=== PATIENT | female | born 1945 | race Caucasian/White ===

== ENCOUNTER 2017-04-13 12:35 | Outpatient (CLI) | payer MEDICARE ==
--- NOTE | 2017-04-14 11:31 | Mammography Report ---
DIGITAL SCREENING MAMMOGRAPHY: 04/13/2017 COMPARISON: 09/07/2013, 10/06/2009, and 02/08/2008. TECHNIQUE: Bilateral digital CC and MLO projections. FINDINGS: There is scattered fibroglandular density. In the posterior right breast at approximately the 9 o'clock position, there is a faint nodular density not seen on preceding studies, perhaps due to lack of inclusion of this area. Otherwise, no dominant mass, architectural distortion, skin thickening, suspicious microcalcifications, or interval change. IMPRESSION: NEGATIVE LEFT BREAST. NEEDS ADDITIONAL EVALUATION RIGHT BREAST BY SPOT COMPRESSION VIEWS AND POSSIBLE ULTRASOUND. BIRADS CATEGORY 0. STANDARD QUALIFYING STATEMENTS 1. This examination was reviewed with the aid of Computer-Aided Detection (CAD). 2. A negative or benign imaging report should not delay biopsy if clinically suspicious findings are present. Consider surgical consultation if warranted. More than 5% of cancers are not identified by imaging. 3. Dense breasts may obscure an underlying neoplasm. JOB #: [id number] EXT JOB #: [id number] DELMI
== END 2017-04-13 12:36 | disposition home or self-care (01) ==
LOC: DI 12:35
PROVIDERS: ATTEND Family Medicine
DX: Z12.31 Encounter for screening mammogram for malignant neoplasm of breast (principal); R92.8 Other abnormal and inconclusive findings on diagnostic imaging of breast
CPT/HCPCS: 77067

== ENCOUNTER 2017-04-13 12:37 | Outpatient (CLI) | payer MEDICARE ==
--- NOTE | 2017-04-14 10:59 | Ultrasound Report ---
THYROID ULTRASOUND: 04/13/2017 HISTORY: Followup thyroid nodules. COMPARISON: 08/23/2013 TECHNIQUE: Real-time scanning by the production control analyst with saved static images reviewed. FINDINGS: Right lobe: 9.1 x 4.2 x 6.3 cm, volume 128 mL. A large heterogeneous appearing nodule replaces the entire right lobe measuring approximately 8.1 x 3.7 x 5.4 cm. By history, this nodule has been biopsied with benign results. Left lobe: 6.4 x 2.5 x 2.4 cm, volume 20 mL. Several nodules are seen in the left lobe: 1. Superior complex 0.9 cm in diameter. 2. Mid portion complex 1.6 x 0.8 x 1.2 cm. 3. Inferior complex 1.6 x 1.9 x 1.5 cm. Thyroid isthmus: 3 mm. IMPRESSION: ENLARGED MULTINODULAR THYROID GLAND CONSISTENT WITH GOITER, SIMILAR TO 08/23/2013. JOB #: [id number] [facility] JOB #: [id number] [facility]
--- NOTE | 2017-04-14 11:49 | DEXA Report ---
DEXA SCAN: 04/13/2017 CLINICAL HISTORY: Postmenopausal, asymptomatic. TECHNIQUE: Dual energy x-ray absorptiometry (DXA) was performed on a [employer] system. Regions measured are the AP spine, femoral neck, and, if needed, forearm. COMPARISON: None. In accordance with the International Society for Clinical Densitometry (ISCD) guidelines, data from previous exams may be reanalyzed using current recommendations and techniques. This is done to allow a more accurate basis for comparison with the current study. FINDINGS The data for the lumbar spine is as follows: REGION BMD (g/cm/cm) T-SCORE Z-SCORE L1 0.943 -1.6 -0.2 L2 1.099 -0.8 0.5 L3 1.070 -1.1 0.3 L4 1.200 0.0 1.4 TOTAL 1.080 -0.8 0.5 NOTE: All evaluable vertebrae are used for classification. The data for the hip is as follows: REGION BMD (g/cm/cm) T-SCORE Z-SCORE Neck 0.773 -1.9 -0.4 TOTAL 0.800 -1.6 -0.4 NOTE: The femoral neck or total proximal femur, whichever is lowest, is used for classification. IMPRESSION: BONE MINERAL DENSITY IN THE LEFT HIP IS CONSISTENT WITH OSTEOPENIA BASED ON WORLD HEALTH ORGANIZATION CLASSIFICATION. FRACTURE RISK IS INCREASED. RECOMMENDATION: Patients with diagnosis of osteoporosis or osteopenia should have regular bone mineral density assessment. For those eligible for Medicare, routine testing is allowed once every 2 years. Testing frequency can be increased for patients who have rapidly progressing disease or for those who are receiving medical therapy to restore bone mass. COMMENT: World Health Organization (WHO) definitions for osteoporosis and osteopenia: NORMAL BMD: T-score at -1.0 or higher, fracture risk is low. OSTEOPENIA BMD: T-score between -1.0 and -2.5, fracture risk is increased. OSTEOPOROSIS BMD: T-score at -2.5 or lower, fracture risk high. National Osteoporosis Foundation recommends: 1. Obtain adequate dietary calcium (at least 1200 mg per day) and vitamin D (400 -800 international units per day). 2. Participate, as appropriate, in regular weightbearing and muscle- strengthening exercise. 3. Avoid tobacco use and reduce alcohol and caffeine intake. 4. For more detailed information see the website at www.NOF.org. MTDD
== END 2017-04-13 12:38 | disposition home or self-care (01) ==
LOC: DI 12:37
PROVIDERS: ATTEND Family Medicine
DX: E04.2 Nontoxic multinodular goiter (principal); M85.88 Other specified disorders of bone density and structure, other site
CPT/HCPCS: 76536; 77080

== ENCOUNTER 2017-05-24 13:34 | Outpatient (CLI) | payer MEDICARE, OTHER ==
--- NOTE | 2017-05-24 19:16 | Ultrasound Report ---
ULTRASOUND OF THE RIGHT BREAST: 05/24/2017 CLINICAL INDICATION: Persistent 5 mm circumscribed nodule on mammogram. TECHNIQUE: Real-time scanning was performed with district sales representative static images obtained. Ultrasound of the right breast was performed. At the 9 o'clock position, there is a 4 x 3 x 3 mm int ramammary lymph node, accounting for the mammographic abnormality. No sonographically suspicious fin dings are appreciated. IMPRESSION: SMALL INTRAMAMMARY LYMPH NODE ACCOUNTING FOR THE MAMMOGRAPHIC ABNORMALITY. RECOMMENDATION: ROUTINE ANNUAL SCREENING UNLESS OTHERWISE CLINICALLY INDICATED. BIRADS CATEGORY: 2, BENIGN FINDINGS. JOB #: [id number] EXT JOB #:[id number]
--- NOTE | 2017-05-24 19:23 | Mammography Report ---
DIGITAL DIAGNOSTIC RIGHT MAMMOGRAM: 05/24/2017 CLINICAL INDICATION: Possible nodule lateral right breast. TECHNIQUE: Right true lateral and spot compression views. COMPARISON: 03/2017, 08/2013, 09/2009, 01/2008. The right breast again demonstrates scattered fibroglandular densities. The nodule in the right oute r breast, 9 o'clock position, persists on spot compression, and demonstrates a fatty hilum best seen on the CC spot compression view, compatible with an intramammary lymph node. No associated calcifica tions are seen. Please also refer to right breast ultrasound of the same day. IMPRESSION: BENIGN FINDINGS. RECOMMENDATION: ROUTINE ANNUAL SCREENING UNLESS OTHERWISE CLINICALLY INDICATED. BIRADS CATEGORY: 2, BENIGN FINDINGS. STANDARD QUALIFYING STATEMENTS 1. This examination was reviewed with the aid of Computed-Aided Detection (CAD). 2. A negative or benign imaging report should not delay biopsy if clinically suspicious findings are present. Consider surgical consultation if warranted. More than 5% of cancers are not identified b y imaging. 3. Dense breasts may obscure an underlying neoplasm. JOB #: [id number] EXT JOB #:[id number]
== END 2017-05-24 13:35 | disposition home or self-care (01) ==
LOC: DI 13:34
PROVIDERS: ATTEND Family Medicine
DX: N63.11 Unspecified lump in the right breast, upper outer quadrant (principal); N63.13 Unspecified lump in the right breast, lower outer quadrant
CPT/HCPCS: 76642; G0206

== ENCOUNTER 2019-01-01 11:07 | Emergency (ER) | payer MEDICARE, OTHER ==
[2019-01-01 11:42] LABS: BASOPHILS # (AUTO) 0.1 10^3/uL (0.0-0.1); BASOPHILS % (AUTO) 1.1 %; EOSINOPHILS # (AUTO) 0.1 10^3/uL (0.0-0.7); EOSINOPHILS % (AUTO) 2.3 %; HGB - HEMOGLOBIN 14.6 g/dL (12.0-16.0); LYMPHOCYTES # (AUTO) 2.7 10^3/uL (1.5-3.5); LYMPHOCYTES % (AUTO) 46.3 %; MEAN CORPUSCULAR HEMOGLOBIN 30.5 pg (27.0-31.0); MEAN CORPUSCULAR HGB CONC 33.5 g/dL (32.0-36.0); MEAN CORPUSCULAR VOLUME 90.9 fL (81.0-99.0); MEAN PLATELET VOLUME 9.6 fL (7.9-10.8); MONOCYTES # (AUTO) 0.4 10^3/uL (0.0-1.0); MONOCYTES % (AUTO) 6.1 %; NEUTROPHILS # (AUTO) 2.5 10^3/uL (1.5-6.6); NEUTROPHILS % (AUTO) 44.2 %; PLT - PLATELET COUNT 248 10^3/uL (130-450); RED BLOOD COUNT 4.81 10^6/uL (4.20-5.40); RED CELL DISTRIBUTION WIDTH 12.5 % (12.0-15.0); WHITE BLOOD COUNT 5.8 x10^3/uL (4.8-10.8)
[2019-01-01 11:53] LABS: ALBUMIN 3.9 g/dL (3.2-5.5); ALBUMIN/GLOBULIN RATIO 1.1 (1.0-2.2); CREATININE 0.8 mg/dL (0.4-1.0); TOTAL PROTEIN 7.5 g/dL (6.7-8.2)
[2019-01-01] MEDS ORDERED: SODIUM CHLORIDE 0.9% 1,000 ML IV ONE (12:19)
--- NOTE | 2019-01-01 12:22 | ED Physician Documentation ---
History of Present Illness - Stated complaint Stated Complaint: ELEVATED HEART RATE/HBP - Chief complaint Chief Complaint: Cardiac - History obtained from History obtained from: Patient - History of Present Illness Timing: How many days ago (4) - Additonal information Additional information: 73-year-old female who is under a lot of stress at home with the recent of a daughter and diagnosis of cancer in her has developed a sensation of a rapid heart rate she is been checking her blood pressure is been elevated her heart rate is been elevated into the upper 80s and 90s. She believes she is drinking adequate amount of fluids she denies any urinary symptoms she denies any other specific symptoms. She denies any chest pain or shortness of breath. Review of Systems Constitutional: denies: Fever Eyes: denies: Decreased vision Ears: denies: Ear pain Nose: denies: Rhinorrhea / runny nose, Congestion Throat: denies: Sore throat Cardiac: reports: Palpitations. denies: Chest pain / pressure, Pedal edema, Calf pain Respiratory: denies: Dyspnea, Cough GI: denies: Abdominal Pain, Nausea, Vomiting : denies: Dysuria, Frequency PD PAST MEDICAL HISTORY - Past Medical History Past Medical History: Yes Cardiovascular: None Respiratory: Asthma, Pneumonia Neuro: None Endocrine/Autoimmune: None GI: Other MATERIALS COORDINATOR: None : None HEENT: None, Other Psych: Anxiety Derm: None Other Past Medical History: tinnitis. IBS - Past Surgical History Past Surgical History: Yes HEENT: Cataracts - Present Medications Home Medications: Ambulatory Orders Medication Instructions Recorded Confirmed Lorazepam [Ativan] 1 mg PO Q6HR PRN #20 tablet 01/01/19 - Allergies Allergies/Adverse Reactions: Allergies Allergy/AdvReac Type Severity Reaction Status Date / Time No Known Drug Allergies Allergy Verified 01/01/19 11:24 - Social History Does the pt smoke?: No Smoking Status: Never smoker Does the pt drink ETOH?: No Does the pt have substance abuse?: No - Immunizations Immunizations are current?: Yes PD ED PE NORMAL - Vitals Vital signs reviewed: Yes (tachy and hypertensive ) - General General: Alert and oriented X 3, No acute distress, Well developed/nourished - HEENT HEENT: Atraumatic, PERRL, EOMI - Neck Neck: Supple, no meningeal sign, No bony TTP - Cardiac Cardiac: RRR, No murmur - Respiratory Respiratory: No respiratory distress, Clear bilaterally - Abdomen Abdomen: Soft, Non tender - Back Back: No CVA TTP, No spinal TTP - Derm Derm: Normal color, Warm and dry, No rash - Extremities Extremities: No deformity, No edema - Neuro Neuro: Alert and oriented X 3, pull 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, No motor deficit, No sensory deficit, Normal speech Eye Opening: Spontaneous Motor: Obeys Commands Verbal: Oriented GCS Score: 15 - Psych Psych: Normal mood, Normal affect Results - Vitals Vitals: Vital Signs - 24 hr 01/01/19 01/01/19 01/01/19 11:14 11:41 13:21 Temperature 36.9 C Heart Rate 108 H 78 Respiratory 11 L 13 Rate Blood Pressure 190/89 H 146/78 H Blood Pressure 156/72 H [Left] O2 Saturation 97 98 01/01/19 13:55 Temperature Heart Rate 75 Respiratory 16 Rate Blood Pressure 166/78 H Blood Pressure [Left] O2 Saturation 100 Oxygen O2 Source Room air - EKG (time done) 1117 Rate: Rate (enter#) (98) Rhythm: NSR [place]: LAD Compare to prior EKG: Old EKG unavailable Computer interpretation: Agree with computer - Labs Labs: Laboratory Tests 01/01/19 01/01/19 01/01/19 11:32 11:32 11:32 WBC 5.8 RBC 4.81 Hgb 14.6 Hct 43.7 MCV 90.9 MCH 30.5 MCHC 33.5 RDW 12.5 Plt Count 248 MPV 9.6 Neut # (Auto) 2.5 Lymph # (Auto) 2.7 [place] # (Auto) 0.4 Eos # (Auto) 0.1 Baso # (Auto) 0.1 Absolute Nucleated RBC 0.01 Nucleated RBC % 0.1 Sodium 140 Potassium 3.6 Chloride 104 Carbon Dioxide 24 Anion Gap 12.0 BUN 13 Creatinine 0.8 Estimated GFR (MDRD) 71 L Glucose 147 H Calcium 9.0 Total Bilirubin 1.0 AST 17 ALT 21 Alkaline Phosphatase 69 Troponin I < 0.04 Total Protein 7.5 Albumin 3.9 Globulin 3.6 Albumin/Globulin Ratio 1.1 Lipase 26 TSH Urine Color Urine Clarity Urine pH Ur Specific [place] Urine Protein Urine Glucose (UA) Urine Ketones Urine Occult Blood Urine Nitrite Urine Bilirubin Urine Urobilinogen Ur Leukocyte Esterase Ur Microscopic Review Urine Culture Comments 01/01/19 01/01/19 11:32 12:24 WBC RBC Hgb Hct MCV MCH MCHC RDW Plt Count MPV Neut # (Auto) Lymph # (Auto) [place] # (Auto) Eos # (Auto) Baso # (Auto) Absolute Nucleated RBC Nucleated RBC % Sodium Potassium Chloride Carbon Dioxide Anion Gap BUN Creatinine Estimated GFR (MDRD) Glucose Calcium Total Bilirubin AST ALT Alkaline Phosphatase Troponin I Total Protein Albumin Globulin Albumin/Globulin Ratio Lipase TSH 0.72 Urine Color YELLOW Urine Clarity CLEAR Urine pH 7.5 Ur Specific [place] 1.010 Urine Protein NEGATIVE Urine Glucose (UA) NEGATIVE Urine Ketones NEGATIVE Urine Occult Blood NEGATIVE Urine Nitrite NEGATIVE Urine Bilirubin NEGATIVE Urine Urobilinogen 0.2 (NORMAL) Ur Leukocyte Esterase NEGATIVE Ur Microscopic Review NOT INDICATED Urine Culture Comments NOT INDICATED Procedures - IVC sono (time) 1215 Bedside IVC sono: IVC measures (cm) (0.96), Dehydration (est 1 liter deficit) PD MEDICAL DECISION MAKING - ED course Complexity details: reviewed results, re-evaluated patient, considered differential, d/w patient, d/w family ED course: 73-year-old female with a sensation of rapid heart rate arrives to the emergency department with a heart rate of 108 after laying supine her heart rate drops into the upper 80s lower 90s and she is found to be mildly dehydrated on interrogation the inferior vena cava. She is administered a liter of saline and a urine specimen is obtained. Her TSH is checked and is normal as is the rest of her workup with the exception of the dehydration. Departure - Departure Disposition: 01 Home, Self Care Clinical Impression: Dehydration, Stress and adjustment reaction Condition: Stable Instructions: ED Stress React, ED Dehydration Follow-Up: Juan Mccann MD [Primary Care Provider] - Prescriptions: Lorazepam [Ativan] 1 mg PO Q6HR PRN #20 tablet PRN Reason: Anxiety Discharge Date/Time: 01/01/19 14:46
--- NOTE | 2019-01-01 12:40 | XRAY Report ---
Reason: chest pain Procedure Date: 01/01/2019 Accession Number: [id number] / [id number] Procedure: XR - Chest 1 View X-Ray CPT Code: 31005 FULL RESULT: EXAM: CHEST RADIOGRAPHY EXAM DATE: 01/01/2019 11:41 AM. CLINICAL HISTORY: Chest pain. COMPARISON: None. TECHNIQUE: 1 view. FINDINGS: Lungs/Pleura: No focal opacities evident. No pleural effusion. No pneumothorax. Mediastinum: Within exam limitations, the cardiomediastinal contour is normal. Other: None. IMPRESSION: Normal portable single view chest. RADIA
[2019-01-01 13:05] LABS: BILIRUBIN,URINE NEGATIVE (NEGATIVE); GLUCOSE, URINE (UA) NEGATIVE (NEGATIVE); KETONES,URINE (UA) NEGATIVE (NEGATIVE); LEUKOCYTE ESTERASE, URINE NEGATIVE (NEGATIVE); NITRITE,URINE NEGATIVE (NEGATIVE); OCCULT BLOOD,URINE NEGATIVE (NEGATIVE); PH,URINE 7.5 PH (5.0-7.5); PROTEIN,URINE NEGATIVE (NEGATIVE); UROBILINOGEN,URINE 0.2 (NORMAL) E.U./dL (NORMAL)
[2019-01-01 13:15] LABS: CLARITY,URINE CLEAR (CLEAR)
[2019-01-01 13:56] VITALS: BP 166/78
== END 2019-01-01 14:46 | disposition home or self-care (01) ==
LOC: ED 11:07
DX: E86.0 Dehydration (principal); F43.9 Reaction to severe stress, unspecified; F43.20 Adjustment disorder, unspecified
CPT/HCPCS: 71045; 80053; 81001; 81003; 83690; 84443; 84484; 85025; 87086; 93005; 96360; 99283; 99284

== ENCOUNTER 2019-01-26 11:11 | Outpatient (CLI) | payer MEDICARE, OTHER ==
--- NOTE | 2019-01-26 14:31 | Mammography Report ---
Reason: SCREENING MAMMO Procedure Date: 01/26/2019 Accession Number: [id number] / [id number] Procedure: PARAG - Screening Mammo w/Arnaldo CPT Code: FULL RESULT: EXAM: Screening Mammo w/Arnaldo DATE: 01/26/2019 11:44 AM CLINICAL HISTORY: Routine screening TECHNIQUE: (B) - Bilateral CC and MLO views were obtained. COMPARISON: 1031 and 17, 04/13/2017, 09/07/2013, 10/06/2009 and 02/08/2008 PARENCHYMAL PATTERN: (A) - The breasts demonstrate scattered fibroglandular densities bilaterally. FINDINGS: No significant interval change. Right breast lymph node as before. There are no suspicious masses, calcifications, or areas of distortion. IMPRESSION: Negative examination. BI-RADS category 1. RECOMMENDATION: (ANNUAL) - Recommend routine annual screening mammography. BI-RADS CATEGORY: (1) - Negative. STANDARD QUALIFYING STATEMENTS: 1. This examination was not reviewed with the aid of Computer-Aided Detection (CAD). 2. A negative or benign imaging report should not preclude biopsy if clinically suspicious findings are present. 3. Dense breasts may obscure an underlying neoplasm. 4. This examination was reviewed with the aid of 3D breast imaging (tomosynthesis).
== END 2019-01-26 11:12 | disposition home or self-care (01) ==
LOC: DI 11:11
PROVIDERS: ATTEND Family Medicine
DX: Z12.31 Encounter for screening mammogram for malignant neoplasm of breast (principal)
CPT/HCPCS: 77063; 77067

== ENCOUNTER 2019-03-06 01:22 | Outpatient (CLI) | payer MEDICARE, OTHER | END 2019-03-06 01:23 | disposition critical access hospital (66) | LOC: EMS 01:22 | PROVIDERS: ATTEND Surgery | DX: R09.89 Other specified symptoms and signs involving the circulatory and respiratory systems (principal) | CPT/HCPCS: A0425; A0427 ==

== ENCOUNTER 2019-03-06 01:33 | Emergency (ER) | payer MEDICARE, OTHER ==
[2019-03-06 01:58] LABS: BASOPHILS # (AUTO) 0.1 10^3/uL (0.0-0.1); BASOPHILS % (AUTO) 0.8 %; EOSINOPHILS # (AUTO) 0.2 10^3/uL (0.0-0.7); EOSINOPHILS % (AUTO) 3.2 %; LYMPHOCYTES % (AUTO) 52.9 %; MEAN CORPUSCULAR HEMOGLOBIN 30.8 pg (27.0-31.0); MEAN CORPUSCULAR HGB CONC 32.7 g/dL (32.0-36.0); MEAN CORPUSCULAR VOLUME 94.3 fL (81.0-99.0); MEAN PLATELET VOLUME 11.8 fL (7.9-10.8); MONOCYTES # (AUTO) 0.6 10^3/uL (0.0-1.0); MONOCYTES % (AUTO) 7.3 %; NEUTROPHILS # (AUTO) 2.7 10^3/uL (1.5-6.6); NEUTROPHILS % (AUTO) 35.4 %; PLT - PLATELET COUNT 249 10^3/uL (130-450); RED BLOOD COUNT 4.54 10^6/uL (4.20-5.40); RED CELL DISTRIBUTION WIDTH 12.2 % (12.0-15.0); WHITE BLOOD COUNT 7.5 x10^3/uL (4.8-10.8)
[2019-03-06] MEDS ORDERED: diltiaZEM INJ 5 MG/ML VIAL IVP STA (02:07)
[2019-03-06 02:11] LABS: ALBUMIN 3.8 g/dL (3.2-5.5); ALBUMIN/GLOBULIN RATIO 1.2 (1.0-2.2); BILIRUBIN,TOTAL 0.5 mg/dL (0.2-1.0); CALCIUM 9.6 mg/dL (8.5-10.3); CREATININE 0.9 mg/dL (0.4-1.0); TOTAL PROTEIN 6.9 g/dL (6.7-8.2)
[2019-03-06 03:06] LABS: BILIRUBIN,URINE NEGATIVE (NEGATIVE); GLUCOSE, URINE (UA) NEGATIVE (NEGATIVE); KETONES,URINE (UA) NEGATIVE (NEGATIVE); LEUKOCYTE ESTERASE, URINE NEGATIVE (NEGATIVE); NITRITE,URINE NEGATIVE (NEGATIVE); OCCULT BLOOD,URINE NEGATIVE (NEGATIVE); PH,URINE 6.5 PH (5.0-7.5); PROTEIN,URINE NEGATIVE (NEGATIVE); UROBILINOGEN,URINE 0.2 (NORMAL) E.U./dL (NORMAL)
[2019-03-06 03:08] LABS: CLARITY,URINE CLEAR (CLEAR)
--- NOTE | 2019-03-06 03:15 | ED Physician Documentation ---
History of Present Illness - Stated complaint Stated Complaint: RAPID HR - Chief complaint Chief Complaint: Cardiac - History obtained from History obtained from: Patient - History of Present Illness Timing: Prior to arrival - Additonal information Additional information: This is a 73-year-old woman who presents with complaints that she woke up approximately an hour and a half prior to presentation with just a weird sensation in her chest. She is a little bit nauseous yesterday but went to bed feeling okay. She said her heart rate was very rapid tonight and they called the ambulance. She has not similar episode happened back in December but she does not remember being told that she had atrial fibrillation. She did not feel lightheaded tonight. No vomiting. No chest pain. Denies peripheral edema or dysuria. She does have a history of some high blood pressure but did not want to take medications so has been controlling it through lifestyle. The only thing unusual about last night was she took a melatonin 5 mg with valerian and she typically only takes melatonin. Review of Systems Constitutional: denies: Fever Eyes: reports: Other (IOLs) Ears: denies: Ear pain Nose: denies: Congestion Throat: denies: Sore throat Cardiac: reports: Palpitations. denies: Chest pain / pressure, Pedal edema Respiratory: denies: Dyspnea, Cough GI: reports: Nausea. denies: Vomiting : denies: Dysuria Skin: denies: Rash Neurologic: denies: Generalized weakness, Near syncope, Syncope Endocrine: reports: Other (Patient has a thyroid goiter but her TSH was just screened in December and was normal) Immunocompromised: denies: Immunocompromised PD PAST MEDICAL HISTORY - Past Medical History Cardiovascular: None Respiratory: Asthma, Pneumonia Neuro: None Endocrine/Autoimmune: None GI: Other RECORDS AND TAPE RECORDINGS ENGINEER: None : None HEENT: None, Other Psych: Anxiety Derm: None - Past Surgical History Past Surgical History: Yes HEENT: Cataracts - Present Medications Home Medications: Ambulatory Orders Medication Instructions Recorded Confirmed No Known Home Medications 03/06/19 03/06/19 - Allergies Allergies/Adverse Reactions: Allergies Allergy/AdvReac Type Severity Reaction Status Date / Time amlodipine [From [facility]] Allergy Unknown Verified 03/06/19 01:40 - Social History Does the pt smoke?: No Smoking Status: Never smoker Does the pt drink ETOH?: No Does the pt have substance abuse?: No - Immunizations Immunizations are current?: Yes PD ED PE NORMAL - Vitals Vital signs reviewed: Yes - General General: Alert and oriented X 3, No acute distress, Well developed/nourished - HEENT HEENT: Atraumatic, PERRL, Moist mucous membranes - Neck Neck: Supple, no meningeal sign, No adenopathy, Thyroid normal - Cardiac Cardiac: No murmur, Strong equal pulses, Other (Tachycardic) - Respiratory Respiratory: No respiratory distress, Clear bilaterally - Abdomen Abdomen: Normal bowel sounds, Soft, Non tender - Derm Derm: Normal color, Warm and dry, No rash - Extremities Extremities: No deformity, No edema - Neuro Neuro: Alert and oriented X 3, 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1 Absolute Nucleated RBC 0.00 Nucleated RBC % 0.0 Sodium 144 Potassium 3.6 Chloride 105 Carbon Dioxide 25 Anion Gap 14.0 H BUN 19 Creatinine 0.9 Estimated GFR (MDRD) 62 L Glucose 127 H Calcium 9.6 Total Bilirubin 0.5 AST 16 ALT 18 Alkaline Phosphatase 66 Troponin I High Sens 10.7 Total Protein 6.9 Albumin 3.8 Globulin 3.1 Albumin/Globulin Ratio 1.2 Lipase 33 Urine Color Urine Clarity Urine pH Ur Specific [place] Urine Protein Urine Glucose (UA) Urine Ketones Urine Occult Blood Urine Nitrite Urine Bilirubin Urine Urobilinogen Ur Leukocyte Esterase Ur Microscopic Review Urine Culture Comments 03/06/19 03:02 WBC RBC Hgb Hct MCV MCH MCHC RDW Plt Count MPV Neut # (Auto) Lymph # (Auto) [place] # (Auto) Eos # (Auto) Baso # (Auto) Absolute Nucleated RBC Nucleated RBC % Sodium Potassium Chloride Carbon Dioxide Anion Gap BUN Creatinine Estimated GFR (MDRD) Glucose Calcium Total Bilirubin AST ALT Alkaline Phosphatase Troponin I High Sens Total Protein Albumin Globulin Albumin/Globulin Ratio Lipase Urine Color YELLOW Urine Clarity CLEAR Urine pH 6.5 Ur Specific [place] <=1.005 Urine Protein NEGATIVE Urine Glucose (UA) NEGATIVE Urine Ketones NEGATIVE Urine Occult Blood NEGATIVE Urine Nitrite NEGATIVE Urine Bilirubin NEGATIVE Urine Urobilinogen 0.2 (NORMAL) Ur Leukocyte Esterase NEGATIVE Ur Microscopic Review NOT INDICATED Urine Culture Comments NOT INDICATED PD MEDICAL DECISION MAKING - ED course ED course: Patient had been given 2 doses of adenosine and 10 mg of Cardizem prior to arrival. When she arrived here her heart rate was in the low 100s and she was in A. fib. Labs were drawn and showed normal CBC and electrolytes. Her troponin was negative. She was given 20 mg of Cardizem and subsequently converted to a sinus rhythm with a rate in the 80s. She was feeling better. Review of her records shows that she was in here in December with feelings of palpitations but at the time she was here she was in a sinus rhythm with rate in the 90s. She is encouraged to follow-up with her primary care provider about whether or not she needs evaluation by cardiology. Departure - Departure Disposition: 01 Home, Self Care Clinical Impression: Atrial fibrillation Qualifiers: Atrial fibrillation type: unspecified Qualified Code(s): I48.91 - Unspecified atrial fibrillation Condition: Good Instructions: ED Afib Follow-Up: Juan Mccann MD [Provider Admit Priv/Credential] - Comments: Make an appointment to follow-up with Dr. Watson if the A. fib returns and your heart rate is fast especially if you are symptomatic with shortness of breath, chest pain, dizziness week or as soon as possible..
[2019-03-06 03:25] VITALS: BP 119/63
--- NOTE | 2019-03-06 03:44 | ED Physician Documentation ---
ED Addendum - Addendum Addendum: 03/06/19 03:43 EKG: A Fib with rate of 128. Narrow qrs, No acute ST changes.
== END 2019-03-06 03:40 | disposition home or self-care (01) ==
LOC: EDUNIT# → ED 01:33
DX: I48.91 Unspecified atrial fibrillation (principal)
CPT/HCPCS: 36415; 80053; 81001; 81003; 83690; 84484; 85025; 87086; 93005; 96374; 99284

== ENCOUNTER 2019-04-09 10:19 | Outpatient (CLI) | payer MEDICARE, OTHER | END 2019-04-09 10:20 | disposition home or self-care (01) | LOC: DI 10:19 | PROVIDERS: ATTEND Family Medicine | DX: I48.0 Paroxysmal atrial fibrillation (principal) | CPT/HCPCS: 93306 ==

== ENCOUNTER 2019-04-24 13:02 | Outpatient (CLI) | payer MEDICARE, OTHER ==
--- NOTE | 2019-04-26 07:56 | DEXA Report ---
Reason: ASYMPTOMATIC POSTMENOPAUSAL, OSTEOPENIA Procedure Date: 04/24/2019 Accession Number: [id number] / [id number] Procedure: DEX - Dexa Spine and/or Hip CPT Code: FULL RESULT: EXAM: Dexa Spine and/or Hip DATE: 04/24/2019 1:54 PM CLINICAL HISTORY: ASYMPTOMATIC POSTMENOPAUSAL, OSTEOPENIA TECHNIQUE: Dual energy x-ray absorptiometry (DXA) was performed on a [employer] System. Regions measured are the AP Spine, femoral neck, and if needed forearm. COMPARISON: 04/13/2017 In accordance with the International Society for Clinical Densitometry (ISCD) guidelines, data from previous exams may be reanalyzed using current recommendations and techniques. This is done to allow a more accurate basis for comparison with the current study. FINDINGS: The data for the lumbar spine is as follows: BMD (g/cm/cm) T-SCORE Z-SCORE REGION L1 0.968 -1.3 0.2 L2 1.056 -1.2 0.4 L3 1.142 -0.5 1.1 L4 1.085 -1.0 0.6 TOTAL 1.109 -0.8 0.8 NOTE: All evaluable vertebrae are used for classification The data for the hip is as follows: BMD (g/cm/cm) T-SCORE Z-SCORE REGION Neck 0.815 -1.6 0.1 TOTAL 0.832 -1.4 0.1 NOTE: The femoral neck or total proximal femur, whichever is lowest, is used for classification. DXA RESULTS SUMMARY: Spine SCAN DATE [age]GE BMD CHANGE VS CHANGE VS PREVIOUS PREVIOUS % [birth year][age]24[birth year]2019 [age] 1.109 -0.025 -2.2 04/13/2017 [age] 1.134 * Denotes significant change at the 95% confidence level. Denotes dissimilar scan types or analysis methods. COMPARISON HIP DXA RESULTS SUMMARY: Hip SCAN DATE [age]GE BMD CHANGE VS CHANGE VS PREVIOUS PREVIOUS % [birth year]24[birth year]2019 [age] 0[age]832 0.032 5.0 04/13[birth year]2017 [age] 0.800 * Denotes significant change at the 95% confidence level. Denotes dissimilar scan types or analysis methods. IMPRESSION: THE WHO CLASSIFICATION BASED ON THE INTERNATIONAL REFERENCE STANDARD IS OSTEOPENIA. THE FRACTURE RISK IS INCREASED. RECOMMENDATION: Patients with diagnosis of osteoporosis or osteopenia should have regular bone mineral density assessment. For those eligible for Medicare, routine testing is allowed once every 2 years. Testing frequency can be increased for patients who have rapidly progressing disease or for those who are receiving medical therapy to restore bone mass. COMMENT: World Health Organization (WHO) definitions for osteoporosis and osteopenia: NORMAL BMD: T-score at -1.0 or higher, fracture risk is low OSTEOPENIA BMD: T-score between -1.0 and -2.5, fracture risk is increased. OSTEOPOROSIS BMD: T-score at -2.5 or lower, fracture risk is high. National Osteoporosis Foundation recommends: 1. Obtain adequate dietary calcium (at least 1200 mg per day) and vitamin D (400-800 international units per day). 2. Participate, as appropriate, in regular weightbearing and muscle-strengthening exercise. 3. Avoid tobacco use and reduce alcohol and caffeine intake. 4. For more detailed information see the website at www.NOF.org.
== END 2019-04-24 13:03 | disposition home or self-care (01) ==
LOC: DI 13:02
PROVIDERS: ATTEND Family Medicine
DX: M85.88 Other specified disorders of bone density and structure, other site (principal); Z78.0 Asymptomatic menopausal state
CPT/HCPCS: 77080

== ENCOUNTER 2019-12-24 01:57 | Emergency (ER) | payer MEDICARE, OTHER ==
--- NOTE | 2019-12-24 02:12 | ED Physician Documentation ---
History of Present Illness - Stated complaint Stated Complaint: VOMITING, CONSTIPATION - Chief complaint Chief Complaint: Cardiac - History obtained from History obtained from: Patient - History of Present Illness Timing: Enter time (00:30), Today Pain level max: 0 Pain level now: 0 Improved by: nothing Worsened by: no exacerbating factors - Additonal information Additional information: woke @ 12:30 AM with flutter in my chest. has had similar symptom before which correlates with PAF (and has also been T+R from this ED for same). denies chest pain or dyspnea. she tried techniques for conversion to NSR which she had been taught in previous visits without change in symptoms Review of Systems Constitutional: reports: Reviewed and negative Cardiac: reports: Palpitations. 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 : None HEENT: None, Other Psych: Anxiety Derm: None - Past Surgical History Past Surgical History: Yes HEENT: Cataracts - Present Medications Home Medications: Ambulatory Orders Medication Instructions Recorded Confirmed Aspirin 325 PO DAILY 12/24/19 Diltiazem HCl [Cardizem] 120 mg PO 12/24/19 Metoprolol Succinate 25 mg PO 12/24/19 - Allergies Allergies/Adverse Reactions: Allergies Allergy/AdvReac Type Severity Reaction Status Date / Time amlodipine [From [facility]] Allergy Unknown Verified 03/06/19 01:40 - Social History Does the pt smoke?: No Smoking Status: Never smoker Does the pt drink ETOH?: No Does the pt have substance abuse?: No - Immunizations Immunizations are current?: Yes PD ED PE NORMAL - Vitals Vital signs reviewed: Yes - General General: Alert and oriented X 3, No acute distress, Well developed/nourished - Neck Neck: Supple, no meningeal sign - Cardiac Cardiac: No murmur, No gallop, No rub - Respiratory Respiratory: No respiratory distress, Clear bilaterally - Abdomen Abdomen: Soft, Non tender - Extremities Extremities: No edema PD ED PE EXPANDED - Cardiac Cardiac: Tachy, Irregularly irregular Results - Vitals Vitals: Oxygen O2 Source Room air - EKG (time done) No standard instances Rate: Rate (enter#) (124), Tachy Rhythm: Atrial fibrillation [place]: LAD Intervals: Prolonged QT (borderline) QRS: Normal Ischemia: Normal ST segments - Labs Labs: Laboratory Tests 12/24/19 12/24/19 12/24/19 02:40 02:40 02:40 WBC 9.0 RBC 4.89 Hgb 15.0 Hct 46.4 MCV 94.9 MCH 30.7 MCHC 32.3 RDW 11.9 L Plt Count 260 MPV 11.2 H Neut # (Auto) 4.2 Lymph # (Auto) 3.8 H Rich # (Auto) 0.7 Eos # (Auto) 0.3 Baso # (Auto) 0.1 Absolute Nucleated RBC 0.00 Nucleated RBC % 0.0 PT 10.2 INR 0.9 APTT 31.2 Sodium 142 Potassium 3.7 Chloride 108 Carbon Dioxide 23 Anion Gap 11.0 BUN 17 Creatinine 0.8 Estimated GFR (MDRD) 70 L Glucose 127 H Calcium 9.3 Total Bilirubin 0.6 AST 16 ALT 16 Alkaline Phosphatase 89 Troponin I High Sens Total Protein 7.5 Albumin 4.1 Globulin 3.4 Albumin/Globulin Ratio 1.2 Lipase 30 12/24/19 02:40 WBC RBC Hgb Hct MCV MCH MCHC RDW Plt Count MPV Neut # (Auto) Lymph # (Auto) Rich # (Auto) Eos # (Auto) Baso # (Auto) Absolute Nucleated RBC Nucleated RBC % PT INR APTT Sodium Potassium Chloride Carbon Dioxide Anion Gap BUN Creatinine Estimated GFR (MDRD) Glucose Calcium Total Bilirubin AST ALT Alkaline Phosphatase Troponin I High Sens 9.9 Total Protein Albumin Globulin Albumin/Globulin Ratio Lipase PD MEDICAL DECISION MAKING - ED course Complexity details: reviewed old records, reviewed results, re-evaluated patient, considered differential, d/w patient ED course: improved rate with IV cardizem 15mg and rhythm was NSR with frequent, albeit, brief, paroxysms of BLAKE. she had borderline elevated blood pressure, allowing for another dose of IV cardizem, thus 10 mg IV cardizem administered and the paroxysms of atrial fibrillation stopped and she maintained a normal sinus rhythm and was asymptomatic. Departure - Departure Disposition: 01 Home, Self Care Clinical Impression: Rapid atrial fibrillation Condition: Good Instructions: ED Afib Discharge Date/Time: 12/24/19 06:05
[2019-12-24] MEDS ORDERED: DILTIAZEM 50 MG/10 ML VIAL IVP STA ×2 (02:19→04:03)
[2019-12-24 02:47] LABS: BASOPHILS # (AUTO) 0.1 10^3/uL (0.0-0.1); BASOPHILS % (AUTO) 1.1 %; EOSINOPHILS # (AUTO) 0.3 10^3/uL (0.0-0.7); EOSINOPHILS % (AUTO) 2.8 %; LYMPHOCYTES # (AUTO) 3.8 10^3/uL (1.5-3.5); LYMPHOCYTES % (AUTO) 41.7 %; MEAN CORPUSCULAR HEMOGLOBIN 30.7 pg (27.0-31.0); MEAN CORPUSCULAR HGB CONC 32.3 g/dL (32.0-36.0); MEAN CORPUSCULAR VOLUME 94.9 fL (81.0-99.0); MEAN PLATELET VOLUME 11.2 fL (7.9-10.8); MONOCYTES # (AUTO) 0.7 10^3/uL (0.0-1.0); NEUTROPHILS # (AUTO) 4.2 10^3/uL (1.5-6.6); NEUTROPHILS % (AUTO) 46.2 %; PLT - PLATELET COUNT 260 10^3/uL (130-450); RED BLOOD COUNT 4.89 10^6/uL (4.20-5.40); RED CELL DISTRIBUTION WIDTH 11.9 % (12.0-15.0)
[2019-12-24 02:58] LABS: INR 0.9 (0.8-1.2); PT - PROTHROMBIN TIME 10.2 secs (9.9-12.6)
[2019-12-24 03:03] LABS: ALBUMIN 4.1 g/dL (3.2-5.5); ALBUMIN/GLOBULIN RATIO 1.2 (1.0-2.2); BILIRUBIN,TOTAL 0.6 mg/dL (0.2-1.0); CALCIUM 9.3 mg/dL (8.5-10.3); CREATININE 0.8 mg/dL (0.4-1.0); TOTAL PROTEIN 7.5 g/dL (6.7-8.2)
[2019-12-24 03:05] LABS: PARTIAL THROMBOPLASTIN TIME 31.2 secs (24.9-33.3)
[2019-12-24 06:05] VITALS: BP 126/68
--- NOTE | 2019-12-24 09:41 | XRAY Report ---
Reason: palpitations Procedure Date: 12/24/2019 Accession Number: [id number] / [id number] Procedure: XR - Chest 1 View X-Ray CPT Code: 56253 Final Report FULL RESULT: PROCEDURE: Chest 1 View X-Ray INDICATIONS: palpitations TECHNIQUE: One view of the chest was acquired. COMPARISON: 08/03/2018 FINDINGS: Surgical changes and devices: None. Lungs and pleura: No pleural effusions or pneumothorax. Lungs are clear. Mediastinum: Moderate leftward deviation of the trachea at the level of the clavicular heads. No tracheal compression. This is fairly stable compared to the prior study. Aortic contour is normal. Heart size is normal. Bones and chest wall: No suspicious bony lesions. Overlying soft tissues appear unremarkable. IMPRESSION: 1. No acute cardiopulmonary disease. 2. There is chronic, fairly stable leftward tracheal deviation, most likely secondary to thyroid enlargement. If not previously evaluated, consider thyroid ultrasound. 3. Concordant with preliminary report. Reviewed by: Marissa Blanc MD on 12/24/2019 7:38 AM PDT Approved by: Marissa Blanc MD on 12/24/2019 7:38 AM PDT Station ID: [id number]
== END 2019-12-24 06:05 | disposition home or self-care (01) ==
LOC: EDUNIT# → ED 01:57
DX: I48.0 Paroxysmal atrial fibrillation (principal); I44.4 Left anterior fascicular block; Z79.82 Long term (current) use of aspirin
CPT/HCPCS: 36415; 71045; 80053; 83690; 84484; 85025; 85610; 85730; 93005; 96374; 99284

== ENCOUNTER 2020-07-28 06:27 | Emergency (ER) | payer MEDICARE, OTHER ==
[2020-07-28 06:53] LABS: BASOPHILS # (AUTO) 0.1 10^3/uL (0.0-0.1); EOSINOPHILS # (AUTO) 0.2 10^3/uL (0.0-0.7); EOSINOPHILS % (AUTO) 2.6 %; HGB - HEMOGLOBIN 15.8 g/dL (12.0-16.0); LYMPHOCYTES # (AUTO) 3.9 10^3/uL (1.5-3.5); LYMPHOCYTES % (AUTO) 50.3 %; MEAN CORPUSCULAR HEMOGLOBIN 30.3 pg (27.0-31.0); MEAN CORPUSCULAR HGB CONC 32.8 g/dL (32.0-36.0); MEAN CORPUSCULAR VOLUME 92.3 fL (81.0-99.0); MONOCYTES # (AUTO) 0.5 10^3/uL (0.0-1.0); MONOCYTES % (AUTO) 5.9 %; NEUTROPHILS # (AUTO) 3.1 10^3/uL (1.5-6.6); NEUTROPHILS % (AUTO) 40.1 %; PLT - PLATELET COUNT 299 10^3/uL (130-450); RED BLOOD COUNT 5.22 10^6/uL (4.20-5.40); RED CELL DISTRIBUTION WIDTH 11.9 % (12.0-15.0); WHITE BLOOD COUNT 7.7 x10^3/uL (4.8-10.8)
[2020-07-28] MEDS ORDERED: diltiaZEM INJ 5 MG/ML VIAL IVP STA (06:54)
--- NOTE | 2020-07-28 06:59 | ED Physician Documentation ---
History of Present Illness - Stated complaint Stated Complaint: HEART RACING - Chief complaint Chief Complaint: Cardiac - History obtained from History obtained from: Patient - Additonal information Additional information: Patient comes emergency department chief complaint of "my A. fib is acting up". Patient has a history of A. fib and states that she has gone in and out of it previously. She takes metoprolol and diltiazem at home for this. She states she woke up in the night and felt as though her heart was pounding. She was able to go back to sleep, but then woke up a couple of hours later, around 220 in the morning, and realized that her heart was racing and seemed irregular. At that point in time, patient took half tablet of her metoprolol and tried to rest. However, her heart never did go back to a normal rhythm, and patient states that she used a stethoscope to listen to it at home. She heard periods of racing and became concerned so decided to come in. Patient denies any s hortness of breath. No chest pain. No nausea or diaphoresis. No lightheadedness. No other complaints at this time. She sees Dr. Sousa for cardiology care. Review of Systems Ten Systems: 10 systems reviewed and negative Constitutional: reports: Reviewed and negative Eyes: reports: Reviewed and negative Ears: reports: Reviewed and negative Nose: reports: Reviewed and negative Throat: reports: Reviewed and negative Cardiac: reports: Palpitations. denies: Chest pain / pressure Respiratory: reports: Reviewed and negative. denies: Dyspnea GI: reports: Reviewed and negative : reports: Reviewed and negative Skin: reports: Reviewed and negative Musculoskeletal: reports: Reviewed and negative Neurologic: reports: Reviewed and negative Psychiatric: reports: Reviewed and negative Endocrine: reports: Reviewed and negative Immunocompromised: reports: Reviewed and negative PD PAST MEDICAL HISTORY - Past Medical History Cardiovascular: None Respiratory: Asthma, Pneumonia Neuro: None Endocrine/Autoimmune: None GI: Other SLUNK SKINNER: None : None HEENT: None, Other Psych: Anxiety Derm: None - Past Surgical History Past Surgical History: Yes HEENT: Cataracts - Present Medications Home Medications: Ambulatory Orders Medication Instructions Recorded Confirmed Aspirin 325 mg PO DAILY 12/24/19 Diltiazem HCl [Cardizem] 120 mg PO DAILY 12/24/19 07/28/20 Metoprolol Succinate 25 mg PO DAILY 12/24/19 07/28/20 - Allergies Allergies/Adverse Reactions: Allergies Allergy/AdvReac Type Severity Reaction Status Date / Time amlodipine [From [facility]] Allergy Unknown Verified 07/28/20 06:39 - Social History Does the pt smoke?: No Smoking Status: Never smoker Does the pt drink ETOH?: No Does the pt have substance abuse?: No - Immunizations Immunizations are current?: Yes PD ED PE NORMAL - Vitals Vital signs reviewed: Yes - General General: Alert and oriented X 3, No acute distress - HEENT HEENT: Atraumatic, PERRL, EOMI, Moist mucous membranes - Neck Neck: Supple, no meningeal sign - Cardiac Cardiac: No murmur, Strong equal pulses, Other (Irregular rhythm and rate no murmurs.) - Respiratory Respiratory: No respiratory distress, Clear bilaterally - Abdomen Abdomen: Soft, Non tender, Non distended - Derm Derm: Normal color, Warm and dry, No rash - Extremities Extremities: No deformity, No edema, No calf tenderness / cord - Neuro Neuro: Alert and oriented X 3 - Psych Psych: Normal mood, Normal affect Results - Vitals Vitals: Vital Signs - 24 hr 07/28/20 07/28/20 06:30 07:08 Temperature 36.5 C Heart Rate 94 72 Respiratory 18 14 Rate Blood Pressure 137/109 H 123/90 H O2 Saturation 98 95 Oxygen O2 Source Room air - Labs Labs: Laboratory Tests 07/28/20 07/28/20 07/28/20 06:45 06:45 06:45 WBC 7.7 RBC 5.22 Hgb 15.8 Hct 48.2 H MCV 92.3 MCH 30.3 MCHC 32.8 RDW 11.9 L Plt Count 299 MPV 11.0 H Neut # (Auto) 3.1 Lymph # (Auto) 3.9 H [place] # (Auto) 0.5 Eos # (Auto) 0.2 Baso # (Auto) 0.1 Absolute Nucleated RBC 0.00 Nucleated RBC % 0.0 Sodium 142 Potassium 4.0 Chloride 105 Carbon Dioxide 26 Anion Gap 11.0 BUN 15 Creatinine 0.7 Estimated GFR (MDRD) 82 L Glucose 147 H Calcium 9.5 Total Bilirubin 0.7 AST 14 ALT 19 Alkaline Phosphatase 82 Troponin I High Sens 13.0 Total Protein 7.8 Albumin 4.2 Globulin 3.6 Albumin/Globulin Ratio 1.2 Lipase 21 L PD MEDICAL DECISION MAKING - ED course Complexity details: reviewed old records, reviewed results, re-evaluated patient, considered differential, d/w patient ED course: Patient was evaluated in the emergency department upon arrival, and was initially put on the quality assurance monitor chassis. This did seem to show periods of normal sinus rhythm rapidly cycling with irregular, rapid heartbeats. All complexes were narrow. EKG was performed and was read by the computer as atrial fibrillation but did also seem to show periods of normal sinus rhythm briefly. The patient was worked up with a cardiac panel. Initially, I had ordered IV diltiazem for the patient, but her heart rate did seem to normalize, so she was given her normal oral diltiazem instead. The patient was signed out to Dr. Barr, pending remainder of work-up and final disposition.
[2020-07-28 07:00] LABS: ALBUMIN 4.2 g/dL (3.2-5.5); ALBUMIN/GLOBULIN RATIO 1.2 (1.0-2.2); BILIRUBIN,TOTAL 0.7 mg/dL (0.2-1.0); CALCIUM 9.5 mg/dL (8.5-10.3); CREATININE 0.7 mg/dL (0.4-1.0); TOTAL PROTEIN 7.8 g/dL (6.7-8.2)
[2020-07-28] MEDS ORDERED: diltiaZEM CD 120 MG CAPSULE PO STA (07:29)
--- NOTE | 2020-07-28 07:30 | ED Physician Documentation ---
ED Addendum - Addendum Addendum: 07/28/20 07:29 Patient endorsed to me by Dr. Ramos for further management. She has reverted to normal sinus rhythm with heart rate in the 70s at this time. No acute distress. 07/28/20 08:02 labwork, cxr nonfocal. repeat ekg nsr. patient asymptomatic at present. discussed return precautions. 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
--- NOTE | 2020-07-28 08:12 | XRAY Report ---
PROCEDURE: Chest 1 View X-Ray INDICATIONS: Chest pain TECHNIQUE: One view of the chest was acquired. COMPARISON: Prior single view chest 12/24/2019. FINDINGS: Surgical changes and devices: None. Lungs and pleura: No pleural effusions or pneumothorax. Lungs are clear. Mediastinum: Mediastinal contours appear normal. Heart size is normal. Bones and chest wall: No suspicious bony lesions. Overlying soft tissues appear unremarkable. IMPRESSION: Normal for age, source of current symptoms is not seen. Reviewed by: Bernardo Black MD on 07/28/2020 8:11 AM PST Approved by: Bernardo Black MD on 07/28/2020 8:11 AM PST Station ID: [id number]
[2020-07-28 08:17] VITALS: BP 140/69
== END 2020-07-28 08:28 | disposition home or self-care (01) ==
LOC: ED 06:27
DX: I48.91 Unspecified atrial fibrillation (principal)
CPT/HCPCS: 36415; 71045; 80053; 83690; 84484; 85025; 93005; 99284; A9270

== ENCOUNTER 2021-02-19 13:33 | Outpatient (CLI) | payer MEDICARE, OTHER ==
[2021-02-19 14:22] VITALS: BP 155/79
--- NOTE | 2021-02-19 14:22 | SLEEP CARE CONSULTATION ---
Information from patient questionnaire entered by Barbara Valdovinos. I have reviewed and concur with the information entered by Barbara Valdovinos. This document represents the service I personally performed and the decisions made by me, Vesta Bullock ARNP. History of Present Illness Service Date and Time: 02/19/2021 1333 Reason for Visit: New patient Chief Complaint: reports: Insomnia, Unrefreshed sleep, Snoring. denies: Observed pauses in breathing Date of Onset: yers Usual bedtime: 11:30 pm Time it takes to fall asleep: 10 minutes to 3-4 hours Snores at night: Yes Observed to quit breathing while asleep: No Sleeps alone due to snoring: Yes Number of times waking at night: 1-2 Reasons for waking at night: reports: Snoring, Bathroom, Other (unknown reason). denies: Choking, Gasping for air Toss, Turn, or Twitch while sleeping: No (but twitch before sleep) Recalls having dreams: Yes Usually gets out of bed at: 9:30 am Feels refreshed in the morning: No Morning headache: No Sleepy or fatigued during the day: Yes Ever fallen asleep while driving: No (no drowsy driving) Takes day naps: No Dreams during day naps: No Prior sleep studies: No Additional HPI information: I had the pleasure of seeing CEM SHARPE today regarding the possibility of her having a sleep disorder. Her current complaints are insomnia, snoring and unrefreshed sleep. She has snored most of her life. She broke her nose when [age] and has had a deviated septum that was repaired around . Her snoring improved but she still snores loudly enough for her to hear in the other room. He sleeps in other room due to her snoring. She can feel rested if gets 7- 8 hours solid but has a little bit of fatigue. She has nights that she cannot fall asleep. She has tried OTC tylenol or melatonin which helps minimally to get to sleep or stay asleep. She has bruxism and snoring for which her dentist had her wear an oral appliance. She is here to see what type of oral appliance she needs. She states sometimes night time dry mouth will wake her up but this does not happen very often. Her has mild sleep apnea. 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 Patient is and lives in [place]. Have you smoked in the past 12 months: No Alcohol use: No Caffeine use: No Family History Family history of sleep disordered breathing: Yes Family Hx Sleep Apnea: Other: Snoring (grandson) Allergies and Home Medications Home medication list reviewed: Yes (amlodipine) Allergy and home medication list: Metoprolol ER Succinate Potassium Gluconate B-12 vitamin Utrimate Cristina Probiotic Calcium Citrate with D3 Turmeric Curcumin Ultra CoQ10 Flaxseed oil Selenium Vitamin E Rhodiola Extract Zinc Quercetin w/ Bromelain L-Lysine Fish oil Grape Seed extract Xarelto Vitamin D3 Diltiazem HCL Magnesium Citrate Flonase Albuterol Sulfate Lorazepam Review of Systems Cardiovascular: reports: high blood pressure, palpitations, irregular heart rate or pulse Gastrointestinal: denies: heartburn Neurological: reports: headaches Psychiatric: reports: Attention Deficit Hyperactivity, anxiety, depression Ear/Nose/Throat: reports: nasal congestion, sinus problems, dry mouth/throat, hoarseness, injury to nose, wisdom teeth removed. denies: tonsillectomy Endocrine: reports: thyroid disease, history of goiter, sluggishness, too hot or cold Musculoskeletal: reports: back pain Immunologic: reports: sneezing, itching, allergies to food or environment Physical Exam Blood Pressure: 155/79 Cuff size: wrist Heart Rate: 62 O2 Saturation: 95 Height: 5 ft 3 in Weight: 167 lb Body Mass Index: 29.5 BMI Classification: Overweight Neck circumference: 15 (inches) Nostrils: patent to airflow Mouth and throat: narrow oropharynx Soft palate: long Hard palate: normal Uvula: normal Uvula visualization: 50% Mallampati Class II Tongue: normal in size Tonsils: small Neck: Thryomegaly (small goiter on right side) Heart: regular rate and rhythm Lungs: clear bilaterally Impression and Plan 1. Suspected Obstructive Sleep Apnea-Hypopnea Syndrome, as loud and irregular snoring, frequent awakening during the night, and unrefreshed sleep. Narrow oropharynx and obesity are common predisposing factors for obstructive sleep apnea-hypopnea syndrome. I recommend proceeding to polysomnography to confirm the diagnosis and to assess severity. If the patient has significant sleep disordered breathing, a manual CPAP titration study will also be performed to find the optimal treatment pressure. I informed the patient of what the sleep studies involve and after some discussion, obtained agreement to proceed. The pathophysiology of obstructive sleep apnea-hypopnea syndrome was discussed with the patient and health risks of cardiovascular and cerebrovascular disease if not treated. Risks of drowsy driving discussed in detail and patient advised to avoid long distance driving and to pot puller at the first sign of drowsiness. Patient agreed to plan. * Schedule polysomnography +- manual CPAP titration study and return in 1-2 weeks after the study to discuss result and initiate therapy. * Avoid long distance driving or driving when feeling sleepy. * Avoid sedative and muscle relaxant around bedtime. * Attempt to lose weight. * Review instructions provided by trained office staff on how to prepare for the sleep study. * Return for follow-up after sleep study completed. Counseling Topics: Weight loss health impact Visit Type: In Office Time Spent with Patient (minutes): 35 Provider Statement: I spent 100% of the Face to Face Visit with the patient with greater than 50% spent counseling the patient and coordination of care.
== END 2021-02-19 13:34 | disposition home or self-care (01) ==
LOC: SC 13:33
PROVIDERS: ATTEND Nurse Practitioner Family
DX: G47.8 Other sleep disorders (principal); G47.00 Insomnia, unspecified; R06.83 Snoring
CPT/HCPCS: 99203; G0463; 99212

== ENCOUNTER 2021-05-20 20:39 | Outpatient (CLI) | payer MEDICARE, OTHER | END 2021-05-20 20:40 | disposition home or self-care (01) | LOC: SC 20:39 | PROVIDERS: ATTEND Nurse Practitioner Family | DX: R53.83 Other fatigue (principal); G47.8 Other sleep disorders; I49.9 Cardiac arrhythmia, unspecified; F32.9 Major depressive disorder, single episode, unspecified; I10 Essential (primary) hypertension; G47.61 Periodic limb movement disorder; R06.83 Snoring | CPT/HCPCS: 95810 ==

== ENCOUNTER 2021-05-28 13:16 | Outpatient (CLI) | payer MEDICARE, OTHER ==
[2021-05-28 14:04] VITALS: BP 134/63
--- NOTE | 2021-05-28 14:04 | SLEEP CARE CONSULTATION ---
Information from patient questionnaire entered by Norma Candelario MA. I have reviewed and concur with the information entered by Norma Candelario MA. This document represents the service I personally performed and the decisions made by Ara andrea Caren J, ARNP. History of Present Illness Service Date and Time: 05/28/2021 1316 Initial [place] Sleepiness Scale score: 5 (in 2020) Current [place] Sleepiness Scale score: 0 (2020) Additional HPI information: CEM SHARPE returns for follow up and results of the recently performed polysomnography. The patient was informed of the following findings: No significant sleep disordered breathing with an average AHI of 1.1 and sarah oxygen saturation of 87%. I explained the pathophysiology behind obstructive sleep apnea. Patient does not have sleep apnea and was advised how weight gain could increase the risk of developing sleep apnea in the future. Patient has mild snoring. Snoring can be reduced by weight loss. Weight loss is best achieved with diet consult. Patient instructed to contact PCP for referral. Snoring can also be treated with an oral appliance from a dentist. Advised to check insurance coverage. In addition, an ENT evaluation can be do to see if other treatment is indicated. Patient was cautioned about risks of drowsy driving until sleepiness symptoms resolve. Sleep Study - Results Prior sleep studies: No Polysomnography/Home Sleep Study results: IMPRESSION: The quality of the study is good. The patient had minimally reduced sleep efficiency. The sleep architecture was relatively normal considering the first-night effect.. Respiratory monitoring showed no significant sleep disordered breathing (AHI = 1.1) or hypoxia (sarah oxygen saturation of 87% and only 0.6% to the total sleep time was spent with oxygen saturation below 90%). The rare respiratory events occurred mainly during REM sleep. The patient did not sleep supine during this study. Snore was light to loud in intensity. There was moderate periodic leg movement of sleep not associated with sleep fragmentation. Cardiac rhythm was normal sinus rhythm without significant arrhythmia. No abnormal behavior (parasomnia) observed during the night. CONCLUSIONS and RECOMMENDATIONS: 1. Periodic leg movement (ICD G47.61), moderate, treatment may be indicated. Clinical correlation advised. 2. No significant sleep disordered breathing. However, because the patient did not sleep supine during this study, significant sleep disordered breathing during supine sleep cannot be ruled out. Allergies and Home Medications Home medication list reviewed: Yes (no changes) Review of Systems Review of systems same as previous: Yes (no changes) Physical Exam Vital signs obtained and entered by: SVITLANA Santamaria Blood Pressure: 134/63 (left) Cuff size: wrist Heart Rate: 68 O2 Saturation: 96 (with mask) Height: 5 ft 3 in Weight: 368 lb 2.751 oz (without boots) Body Mass Index: 65.2 BMI Classification: Morbidly Obese Impression and Plan 1. Snoring but no significant sleep disordered breathing. Patient advised that often weight loss will reduce snoring as well as apnea risk. An oral appliance can also be used for snoring. This would require a dental consultation. Patient cautioned not to use other online appliances as can cause bite issues. A list of accredited dentists in [facility] and one local dentist who makes oral appliances is available in office. Patient is advised to check if insurance will cover. An ENT consult can also be helpful to determine if any other treatment is an option. Patient states she is sleeping better. She looked into reasons that she could be having her A. fib. She decreased caffeine, ibuprofen and chocolate and has not been having as many episodes of her atrial fibrillation. She states she is also taking half a pill of lorazepam with her melatonin nightly and is able to sleep more soundly through the night. She is also worked on her sleep hygiene, keeping a regular schedule and has no daytime sleepiness reportedly. 2. Periodic limb movement, moderate, that did not fragment patients sleep. Periodic limb movement of sleep (PLMS) is characterized by episodes of repetitive limb movements that occur during sleep and usually involve the lower limbs. The etiology is unknown but can be associated with restless leg syndrome (RLS), low serum ferritin level, neuropathy, spinal cord diseases, kidney disease, rheumatological disorders, narcolepsy, obstructive sleep apnea, and REM sleep behavior disorder. Caffeine can also aggravate PLMS and should be avoided. Sleep hygiene methods can also improve sleep as well as lifestyle changes such as regular exercise. Patient was advised that no treatment is needed at this time. If symptoms increase, then further evaluation is indicated. * Try to lose weight * Avoid alcohol consumption near bedtime * The patient is cautioned about driving until sleepiness is completely reso lved. * Return as needed. Counseling Topics: Weight loss health impact Visit Type: In Office Time Spent with Patient (minutes): 14 Provider Statement: I spent 100% of the Face to Face Visit with the patient with greater than 50% spent counseling the patient and coordination of care.
== END 2021-05-28 13:17 | disposition home or self-care (01) ==
LOC: SC 13:16
PROVIDERS: ATTEND Nurse Practitioner Family
DX: G47.61 Periodic limb movement disorder (principal); R06.83 Snoring; E66.01 Morbid (severe) obesity due to excess calories; Z68.44 Body mass index [BMI] 60.0-69.9, adult
CPT/HCPCS: 99212; G0463

== ENCOUNTER 2021-09-29 16:07 | Outpatient (CLI) | payer MEDICARE, OTHER | END 2021-09-29 16:08 | disposition home or self-care (01) | LOC: LAB.N 16:07 | PROVIDERS: ATTEND Family Medicine | DX: I48.0 Paroxysmal atrial fibrillation (principal); Z79.01 Long term (current) use of anticoagulants | CPT/HCPCS: 36415; 85610; 85730 ==

== ENCOUNTER 2021-10-02 16:16 | Outpatient (CLI) | payer MEDICARE, OTHER | END 2021-10-02 16:17 | disposition home or self-care (01) | LOC: LAB.N 16:16 | PROVIDERS: ATTEND Family Medicine | DX: I48.0 Paroxysmal atrial fibrillation (principal); Z79.01 Long term (current) use of anticoagulants | CPT/HCPCS: 36416; 85610 ==

== ENCOUNTER 2021-10-05 08:00 | Outpatient (CLI) | payer MEDICARE, OTHER | END 2021-10-05 23:59 | disposition home or self-care (01) | LOC: LAB.N 08:00 | PROVIDERS: ATTEND Family Medicine | DX: I48.0 Paroxysmal atrial fibrillation (principal); Z79.01 Long term (current) use of anticoagulants ==

== ENCOUNTER 2021-10-09 08:00 | Outpatient (CLI) | payer MEDICARE, OTHER | END 2021-10-09 23:59 | disposition home or self-care (01) | LOC: LAB.N 08:00 | PROVIDERS: ATTEND Family Medicine | DX: I48.0 Paroxysmal atrial fibrillation (principal); Z79.01 Long term (current) use of anticoagulants ==

== ENCOUNTER 2021-10-16 08:00 | Outpatient (CLI) | payer MEDICARE, OTHER | END 2021-10-16 23:59 | disposition home or self-care (01) | LOC: LAB.WCP 08:00 | PROVIDERS: ATTEND Family Medicine | DX: I48.0 Paroxysmal atrial fibrillation (principal); Z79.01 Long term (current) use of anticoagulants ==

== ENCOUNTER 2021-10-30 08:00 | Outpatient (CLI) | payer MEDICARE, OTHER | END 2021-10-30 23:59 | disposition home or self-care (01) | LOC: LAB.N 08:00 | PROVIDERS: ATTEND Family Medicine | DX: I48.0 Paroxysmal atrial fibrillation (principal); Z79.01 Long term (current) use of anticoagulants ==

== ENCOUNTER 2021-11-06 08:00 | Outpatient (CLI) | payer MEDICARE, OTHER | END 2021-11-06 23:59 | disposition home or self-care (01) | LOC: LAB.N 08:00 | PROVIDERS: ATTEND Family Medicine | DX: I48.0 Paroxysmal atrial fibrillation (principal); Z79.01 Long term (current) use of anticoagulants ==

== ENCOUNTER 2021-11-13 09:03 | Outpatient (CLI) | payer MEDICARE, OTHER ==
[2021-11-13 12:33] LABS: BASOPHILS # (AUTO) 0.1 10^3/uL (0.0-0.1); BASOPHILS % (AUTO) 1.1 %; EOSINOPHILS # (AUTO) 0.2 10^3/uL (0.0-0.7); EOSINOPHILS % (AUTO) 2.7 %; HCT - HEMATOCRIT 45.2 % (37.0-47.0); HGB - HEMOGLOBIN 14.7 g/dL (12.0-16.0); LYMPHOCYTES # (AUTO) 2.8 10^3/uL (1.5-3.5); LYMPHOCYTES % (AUTO) 44.9 %; MEAN CORPUSCULAR HEMOGLOBIN 30.1 pg (27.0-31.0); MEAN CORPUSCULAR HGB CONC 32.5 g/dL (32.0-36.0); MEAN CORPUSCULAR VOLUME 92.4 fL (81.0-99.0); MEAN PLATELET VOLUME 12.7 fL (7.9-10.8); MONOCYTES # (AUTO) 0.5 10^3/uL (0.0-1.0); MONOCYTES % (AUTO) 7.8 %; NEUTROPHILS # (AUTO) 2.7 10^3/uL (1.5-6.6); NEUTROPHILS % (AUTO) 43.3 %; PLT - PLATELET COUNT 262 10^3/uL (130-450); RED BLOOD COUNT 4.89 10^6/uL (4.20-5.40); RED CELL DISTRIBUTION WIDTH 12.1 % (12.0-15.0); WHITE BLOOD COUNT 6.3 x10^3/uL (4.8-10.8)
[2021-11-13 12:50] LABS: ALBUMIN 3.7 g/dL (3.2-5.5); ALBUMIN/GLOBULIN RATIO 1.1 (1.0-2.2); ALKALINE PHOSPHATASE 74 IU/L (42-121); ALT ALANINE AMINOTRANSFERASE 19 IU/L (10-60); AST ASPARTATE AMINOTRANSFERASE 15 IU/L (10-42); BILIRUBIN,TOTAL 0.6 mg/dL (0.2-1.0); BUN - BLOOD UREA NITROGEN 11 mg/dL (6-20); CALCIUM 8.8 mg/dL (8.5-10.3); CARBON DIOXIDE - CO2 27 mmol/L (21-32); CHLORIDE 104 mmol/L (101-111); CREATININE 0.7 mg/dL (0.4-1.0); GFR - MDRD 82 (>89); GLUCOSE 118 mg/dL (70-100); POTASSIUM 4.2 mmol/L (3.5-5.0); SODIUM 140 mmol/L (135-145)
[2021-11-13 13:06] LABS: THYROID STIMULATING HORMONE 1.29 uIU/mL (0.34-5.60)
[2021-11-13 15:59] LABS: ESTIMATED AVERAGE GLUCOSE 114 mg/dL (70-100); HEMOGLOBIN A1c% 5.6 % (4.27-6.07)
[2021-11-13 16:54] LABS: CHOL/HDL RATIO 3.9 (<4.4); CHOLESTEROL 236 mg/dL; HDL CHOLESTEROL 61 mg/dL; LDL CHOLESTEROL,CALCULATED 153 mg/dL; LDL/HDL RATIO 2.5 (<4.4); TRIGLYCERIDES 108 mg/dL; VLDL CHOLESTEROL 22 mg/dL
== END 2021-11-13 23:59 | disposition home or self-care (01) ==
LOC: LAB.N 09:03
PROVIDERS: ATTEND Family Medicine
DX: I10 Essential (primary) hypertension (principal); E04.1 Nontoxic single thyroid nodule; J45.909 Unspecified asthma, uncomplicated; R73.01 Impaired fasting glucose; I34.0 Nonrheumatic mitral (valve) insufficiency; G47.9 Sleep disorder, unspecified; M81.0 Age-related osteoporosis without current pathological fracture; Z79.01 Long term (current) use of anticoagulants; I48.0 Paroxysmal atrial fibrillation
CPT/HCPCS: 36415; 80053; 80061; 81599; 83036; 83721; 84443; 85025

== ENCOUNTER 2021-11-27 08:00 | Outpatient (CLI) | payer MEDICARE, OTHER | END 2021-11-27 08:01 | disposition home or self-care (01) | LOC: LAB.N 08:00 | PROVIDERS: ATTEND Internal Medicine | DX: I48.0 Paroxysmal atrial fibrillation (principal); Z79.01 Long term (current) use of anticoagulants ==

== ENCOUNTER 2022-01-01 08:00 | Outpatient (CLI) | payer MEDICARE, OTHER | END 2022-01-01 23:59 | disposition home or self-care (01) | LOC: LAB.WCP 08:00 | PROVIDERS: ATTEND Family Medicine | DX: I48.0 Paroxysmal atrial fibrillation (principal); Z79.01 Long term (current) use of anticoagulants ==

== ENCOUNTER 2022-01-29 08:00 | Outpatient (CLI) | payer MEDICARE, OTHER | END 2022-01-29 08:01 | disposition home or self-care (01) | LOC: LAB.N 08:00 | PROVIDERS: ATTEND Family Medicine | DX: I48.0 Paroxysmal atrial fibrillation (principal); Z79.01 Long term (current) use of anticoagulants ==

== ENCOUNTER 2022-02-12 08:00 | Outpatient (CLI) | payer MEDICARE, OTHER | END 2022-02-12 23:59 | disposition home or self-care (01) | LOC: LAB.N 08:00 | PROVIDERS: ATTEND Family Medicine | DX: I48.0 Paroxysmal atrial fibrillation (principal); Z79.01 Long term (current) use of anticoagulants ==

== ENCOUNTER 2022-04-01 12:41 | Outpatient (CLI) | payer MEDICARE, OTHER ==
--- NOTE | 2022-04-01 14:12 | DEXA Report ---
PROCEDURE: Dexa Spine and/or Hip INDICATIONS: POST MENOPAUSAL TECHNIQUE: Dual energy x-ray absorptiometry (DXA) was performed on a CardioDx System. Regions measur ed are the AP Spine, femoral neck, and if needed forearm. COMPARISON: 04/24/2019, 04/13/2017. FINDINGS: Lumbar Spine: Bone Mineral Density 1.073 g/cm/cm,T score -0.9, normal. Left Hip: Bone Mineral Density 0.776 g/cm/cm,T score -1.8, osteopenia. There has been a significant interval d ecrease in bone mineral density since the prior exam. Left Femoral Neck: Bone Mineral Density 0.747 g/cm/cm, T score -2.1, osteopenia. (T score greater or equal to -1.0: NORMAL) (T score from -1.1 to -2.4: OSTEOPENIA) (T score less than or equal to -2.5 to: OSTEOPOROSIS) Impression: Osteopenia. Patients with diagnosis of osteoporosis or osteopenia should have regular bone mineral density assess ment. For those eligible for Medicare, routine testing is allowed once every 2 years. Testing frequ ency can be increased for patients who have rapidly progressing disease or for those who are receivin g medical therapy to restore bone mass. Reviewed by: Patel Jansen MD on 04/01/2022 2:11 PM PDT Approved by: Patel Jansen MD on 04/01/2022 2:11 PM PDT Station ID: [id number]
== END 2022-04-01 12:42 | disposition home or self-care (01) ==
LOC: DI 12:41
PROVIDERS: ATTEND Family Medicine
DX: Z78.0 Asymptomatic menopausal state (principal); M85.89 Other specified disorders of bone density and structure, multiple sites

== ENCOUNTER 2022-04-02 08:00 | Outpatient (CLI) | payer MEDICARE, OTHER | END 2022-04-02 08:01 | disposition home or self-care (01) | LOC: LAB.N 08:00 | PROVIDERS: ATTEND Family Medicine | DX: I48.0 Paroxysmal atrial fibrillation (principal); Z79.01 Long term (current) use of anticoagulants ==

== ENCOUNTER 2022-05-21 21:19 | Emergency (ER) | payer MEDICARE, OTHER ==
--- OUTSIDE RECORDS SUMMARY | 2022-05-21 21:26 | EXTERNAL MEDICAL SUMMARY RPT | Continuity of Care Document ---
:1945 Author Organization [facility] Address [address] [place] [address] Phone Allergies No information. Encounters No information. Functional Status No information. Immunizations No information. Medications No information. Problems No information. Procedures No information. Results/Labs test date author facility value unit interpret ation Result panel 1 (unknown) (no (unknown) (unknown) (no value) (units (unk nown) date) unknown) (unknown) (no (unknown) (unknown) +---------+ (units (un known) date) [phone] +--------- unknown) (unknown) (no (unknown) (unknown) +---------+ (units (un known) date) Hospital +--------- unknown) (unknown) (no (unknown) (unknown) + (units (unknown) date) unknown) --- (unknown) (no (unknown) (unknown) 04/28/22 (units (unkno wn) date) unknown) (unknown) (no (unknown) (unknown) [address] (units (unknown) date) unknown) (unknown) (no (unknown) (unknown) : : [address] [facility] (units (unknown) date) : : unknown) (unknown) (no (unknown) (unknown) : : [id number] : : (units ( unknown) date) unknown) (unknown) (no (unknown) (unknown) : : [facility] (units (unknown) date) : : unknown) (unknown) (no (unknown) (unknown) : : Phone: [phone] (units (unknown) date) : unknown) (unknown) (no (unknown) (unknown) :Account #: (units (un known) date) [id number] Gender: unknown) Female BSA: 1.8 m2 : (unknown) (no (unknown) (unknown) :: 1945 (units (unknown) date) Age: 77 yrs BP: unknown) 166/87 mmHg: (unknown) (no (unknown) (unknown) :Hospital MRN #: (units (unknown) date) [id number] unknown) ReadingLocation: Weight: 160 lb : (unknown) (no (unknown) (unknown) :Name: DELL (units (unknown) date) KATHY Gutierrez Study unknown) Date: 04/28/2022 Height: 63 in : (unknown) (no (unknown) (unknown) :[place] Performed (units (unknown) date) By: Juliet Orona : unknown) (unknown) (no (unknown) (unknown) :Ordering (units (unkn own) date) Physician: HARRIET, unknown) : (unknown) (no (unknown) (unknown) :Reason For Study: (units (unknown) date) Atrial fibrillation unknown) : (unknown) (no (unknown) (unknown) :Referring: (units (un known) date) [place] SOUSA : unknown) (unknown) (no (unknown) (unknown) AI P1/2t: 562.8 (units (unknown) date) msec unknown) (unknown) (no (unknown) (unknown) AI dec slope: (units ( unknown) date) 199.4 cm/sec2 unknown) (unknown) (no (unknown) (unknown) sev ratio: 0.77 (units (unknown) date) unknown) (unknown) (no (unknown) (unknown) YULIANA indexed to BSA (units (unknown) date) (cm2/m2): 1.4 unknown) (unknown) (no (unknown) (unknown) Accession Number: (units (unknown) date) [id number] unknown) (unknown) (no (unknown) (unknown) Age/Sex: 77 / F (units (unknown) date) Date of Service: unknown) (unknown) (no (unknown) (unknown) [place] (units ( unknown) date) [id number] unknown) (unknown) (no (unknown) (unknown) Ao V2 VTI: 36.3 cm (units (unknown) date) YULIANA(V,D): 2.6 cm2 unknown) (unknown) (no (unknown) (unknown) Ao V2 max: 134.6 (units (unknown) date) cm/sec LVOT Max unknown) Boubacar: 111.7 cm/sec (unknown) (no (unknown) (unknown) Ao V2 mean: 99.3 (units (unknown) date) cm/sec LV V1 max unknown) P.0 mmHg (unknown) (no (unknown) (unknown) Ao max P.2 (units (unknown) date) mmHg LV V1 VTI: unknown) 28.1 cm (unknown) (no (unknown) (unknown) Ao mean P.3 (units (unknown) date) mmHg YULIANA(I,D): 2.4 unknown) cm2 (unknown) (no (unknown) (unknown) Aortic Valve: The (units (unknown) date) aortic valve is unknown) trileaflet. The aortic valve opens well. (unknown) (no (unknown) (unknown) Atria: The left (units (unknown) date) atrial size is unknown) normal. Right atrial size is normal. There is (unknown) (no (unknown) (unknown) : 1945 (units (unknown) date) Acct:[id number] unknown) (unknown) (no (unknown) (unknown) Doppler (units (unkno wn) date) Measurements + unknown) Calculations (unknown) (no (unknown) (unknown) E/E' lat: 9.7 (units ( unknown) date) unknown) (unknown) (no (unknown) (unknown) E/E' med: 10.6 PA (units (unknown) date) mean P.8 mmHg unknown) (unknown) (no (unknown) (unknown) E/e' average: 10.1 (units (unknown) date) unknown) (unknown) (no (unknown) (unknown) Echocardiogram (units (unknown) date) Report unknown) (unknown) (no (unknown) (unknown) Echocardiography (units (unknown) date) Report unknown) (unknown) (no (unknown) (unknown) Electronically (units (unknown) date) signed by: Chapito Sousa on 04/28/2022 (unknown) (no (unknown) (unknown) FS: 39.0 % asc (units (unknown) date) Aorta Diam: 3.2 cm unknown) (unknown) (no (unknown) (unknown) Great Vessels: The (units (unknown) date) aortic root is unknown) normal size. The dimensions of the (unknown) (no (unknown) (unknown) IVSd: 0.84 cm (units ( unknown) date) unknown) (unknown) (no (unknown) (unknown) Interpretation (units (unknown) date) Summary unknown) (unknown) (no (unknown) (unknown) [facility] (units (unknown) date) unknown) (unknown) (no (unknown) (unknown) [place] (units (unkno wn) date) unknown) (unknown) (no (unknown) (unknown) LA A2 area: 21.0 (units (unknown) date) cm2 RA long axis: unknown) 4.8 cm (unknown) (no (unknown) (unknown) LA A4 area: 13.7 (units (unknown) date) cm2 RA area: 13.4 unknown) cm2 (unknown) (no (unknown) (unknown) LA length (vol): (units (unknown) date) 4.7 cm RA vol: 32.2 unknown) ml (unknown) (no (unknown) (unknown) LA vol index: 29.8 (units (unknown) date) ml/m2 IVC diam: 1.0 unknown) cm (unknown) (no (unknown) (unknown) LA vol: 52.4 ml RA (units (unknown) date) : 18.3 ml/m2 unknown) (unknown) (no (unknown) (unknown) LV ramirez. (units (unkno wn) date) diameter/BSA unknown) (cm/m2): 2.9 (unknown) (no (unknown) (unknown) LV sys. (units (unkno wn) date) diameter/BSA unknown) (cm/m2): 1.7 (unknown) (no (unknown) (unknown) LVIDd: 5.0 cm LVOT (units (unknown) date) diam: 2.0 cm unknown) (unknown) (no (unknown) (unknown) LVIDs: 3.1 cm Ao (units (unknown) date) root diam: 3.3 cm unknown) (unknown) (no (unknown) (unknown) LVPWd: 0.83 cm (units (unknown) date) unknown) (unknown) (no (unknown) (unknown) Lat Peak E' Boubacar: (units (unknown) date) 6.9 cm/sec PA unknown) pr(Accel): 37.9 mmHg (unknown) (no (unknown) (unknown) Left Ventricle: (units (unknown) date) The left ventricle unknown) is normal in size and wall thickness. (unknown) (no (unknown) (unknown) Left ventricular (units (unknown) date) systolic function unknown) appears normal without focal wall motion (unknown) (no (unknown) (unknown) Loc: ECHO (units (unkn own) date) unknown) (unknown) (no (unknown) (unknown) [id number] (units (unk nown) date) unknown) (unknown) (no (unknown) (unknown) MMode/2D (units (unkno wn) date) Measurements + unknown) Calculations (unknown) (no (unknown) (unknown) MV A max boubacar: 93.4 (units (unknown) date) cm/sec TR max PG: unknown) 18.2 mmHg (unknown) (no (unknown) (unknown) MV E max boubacar: 66.9 (units (unknown) date) cm/sec TR max boubacar: unknown) 213.4 cm/sec (unknown) (no (unknown) (unknown) MV E/A: 0.72 PA V2 (units (unknown) date) max: 96.9 cm/sec unknown) (unknown) (no (unknown) (unknown) MV dec time: 0.28 (units (unknown) date) sec unknown) (unknown) (no (unknown) (unknown) Med Peak E' Boubacar: (units (unknown) date) 6.3 cm/sec PA V2 unknown) mean: 62.1 cm/sec (unknown) (no (unknown) (unknown) Mitral Valve: The (units (unknown) date) mitral valve is unknown) normal in structure and function. There is (unknown) (no (unknown) (unknown) Ordering Provider: (units (unknown) date) Chapito Sousa MD unknown) (unknown) (no (unknown) (unknown) Patient: (units (unkno wn) date) Kathy Mariee L unknown) MR#: (unknown) (no (unknown) (unknown) Pericardium/ (units (u nknown) date) Pleura There is no unknown) pericardial effusion. There is no pleural (unknown) (no (unknown) (unknown) Procedure: A (units (u nknown) date) two-dimensional unknown) transthoracic echocardiogram with color flow (unknown) (no (unknown) (unknown) Procedure: EC echo (units (unknown) date) doppler complete unknown) (unknown) (no (unknown) (unknown) Pulmonic Valve: (units (unknown) date) The pulmonic valve unknown) leaflets are thin and pliable; valve (unknown) (no (unknown) (unknown) RVD1 (basal): 2.9 (units (unknown) date) cm unknown) (unknown) (no (unknown) (unknown) RVD2 (mid): 2.4 cm (units (unknown) date) unknown) (unknown) (no (unknown) (unknown) Reading (units (unkno wn) date) Physician:05:10 PM unknown) (unknown) (no (unknown) (unknown) Right Ventricle: (units (unknown) date) The right ventricle unknown) is normal in size and function. (unknown) (no (unknown) (unknown) SV(LVOT): 88.7 ml (units (unknown) date) unknown) (unknown) (no (unknown) (unknown) Signed (units (unkno wn) date) unknown) (unknown) (no (unknown) (unknown) TAPSE: 2.4 cm (units ( unknown) date) unknown) (unknown) (no (unknown) (unknown) The aortic root is (units (unknown) date) normal size. unknown) (unknown) (no (unknown) (unknown) The left atrial (units (unknown) date) size is normal. unknown) Right atrial size is normal. (unknown) (no (unknown) (unknown) The left ventricle (units (unknown) date) is normal in size unknown) and wall thickness. Left ventricular (unknown) (no (unknown) (unknown) The right (units (unkn own) date) ventricle is normal unknown) in size and function. The right ventricular (unknown) (no (unknown) (unknown) There is mild to (units (unknown) date) moderate aortic unknown) regurgitation. There is no other significant (unknown) (no (unknown) (unknown) There is mild (units ( unknown) date) tricuspid unknown) regurgitation. The right ventricular systolic pressure (unknown) (no (unknown) (unknown) There is no aortic (units (unknown) date) valve stenosis. unknown) There is mild to moderate aortic (unknown) (no (unknown) (unknown) Tricuspid Valve: (units (unknown) date) The tricuspid valve unknown) is normal in structure and function. (unknown) (no (unknown) (unknown) (units (unknown) date) unknown) ___ (unknown) (no (unknown) (unknown) abnormalities. The (units (unknown) date) ejection fraction unknown) is estimated to be 60-65%. Diastolic (unknown) (no (unknown) (unknown) and Doppler was (units (unknown) date) performed. The unknown) study quality was technically adequate. There (unknown) (no (unknown) (unknown) ascending aorta (units (unknown) date) are normal. The IVC unknown) is of normal diameter and collapses (unknown) (no (unknown) (unknown) bradycardia with (units (unknown) date) heart rates between unknown) 50-54 bpm during the exam. (unknown) (no (unknown) (unknown) effusion. (units (unkn own) date) unknown) (unknown) (no (unknown) (unknown) ejection fraction (units (unknown) date) is estimated to be unknown) 60-65%. Diastolic parameters suggest a (unknown) (no (unknown) (unknown) filling pressures. (units (unknown) date) unknown) (unknown) (no (unknown) (unknown) greater than 50% (units (unknown) date) with a sniff. This unknown) suggests a low right atrial pressure of 3 (unknown) (no (unknown) (unknown) is estimated to be (units (unknown) date) at least 21 mmHg unknown) based on an estimated right atrial (unknown) (no (unknown) (unknown) is no prior (units (un known) date) echocardiogram unknown) noted for this patient. The patient was in sinus (unknown) (no (unknown) (unknown) mild mitral (units (un known) date) regurgitation. unknown) (unknown) (no (unknown) (unknown) mm Hg. (units (unkno wn) date) unknown) (unknown) (no (unknown) (unknown) motion is normal. (units (unknown) date) There is no unknown) pulmonic valvular regurgitation. There is no (unknown) (no (unknown) (unknown) no Doppler (units (unk nown) date) evidence for an unknown) interatrial shunt. (unknown) (no (unknown) (unknown) other significant (units (unknown) date) valvular heart unknown) disease. (unknown) (no (unknown) (unknown) parameters suggest (units (unknown) date) a relaxation unknown) abnormality of the left ventricle, consistent (unknown) (no (unknown) (unknown) pressure of 3 mm (units (unknown) date) Hg. unknown) (unknown) (no (unknown) (unknown) regurgitation. (units (unknown) date) unknown) (unknown) (no (unknown) (unknown) relaxation (units (unk nown) date) abnormality of the unknown) left ventricle, consistent with probable normal (unknown) (no (unknown) (unknown) right atrial (units (u nknown) date) pressure of 3 mm unknown) Hg. (unknown) (no (unknown) (unknown) systolic function (units (unknown) date) appears normal unknown) without focal wall motion abnormalities. The (unknown) (no (unknown) (unknown) systolic pressure (units (unknown) date) is estimated to be unknown) at least 21 mmHg based on an estimated (unknown) (no (unknown) (unknown) valvular heart (units (unknown) date) disease. unknown) (unknown) (no (unknown) (unknown) with probable (units ( unknown) date) normal filling unknown) pressures. Result panel 2 (unknown) (no (unknown) (unknown) (no value) (units (unk nown) date) unknown) (unknown) (no (unknown) (unknown) 04/28/22 (units (unkno wn) date) unknown) (unknown) (no (unknown) (unknown) [address] (units (unkn own) date) Street unknown) (unknown) (no (unknown) (unknown) Accession (units (unkn own) date) Number: unknown) [id number] (unknown) (no (unknown) (unknown) Achieved 7 METs (units (unknown) date) of workload and unknown) THEODORE -1 percent. Baseline rhythm was sinus. (unknown) (no (unknown) (unknown) Age/Sex: 77 / F (units (unknown) date) Date of Service: unknown) (unknown) (no (unknown) (unknown) [place], [place] (units ( unknown) date) [address] unknown) (unknown) (no (unknown) (unknown) Baseline blood (units (unknown) date) pressure 138/78 unknown) mmHg. Maximum blood pressure 180/80 mmHg. (unknown) (no (unknown) (unknown) CARDIAC STRESS: (units (unknown) date) The patient unknown) underwent exercise stress test under the (unknown) (no (unknown) (unknown) CONCLUSION: (units (un known) date) Exercise stress unknown) test did not show any obvious inducible ischemia. (unknown) (no (unknown) (unknown) COPIES MNE: (units (un known) date) PALV; unknown) (unknown) (no (unknown) (unknown) DATE OF (units (unkno wn) date) SERVICE: unknown) 04/28/2022 (unknown) (no (unknown) (unknown) DICTATING (units (unkn own) date) MD/COPIES TO: unknown) Matthew Quach MD (unknown) (no (unknown) (unknown) : 1945 (units (unknown) date) Acct:[id number] unknown) (unknown) (no (unknown) (unknown) [facility], (units (unk nown) date) Kathy Genao MRN: unknown) [id number] (unknown) (no (unknown) (unknown) During stress, (units (unknown) date) there were some unknown) nonspecific ST changes and frequent premature (unknown) (no (unknown) (unknown) Fair exercise (units ( unknown) date) tolerance. unknown) Functional aerobic impairment -1 percent. Normal (unknown) (no (unknown) (unknown) INDICATION: (units (un known) date) Paroxysmal AFib. unknown) (unknown) (no (unknown) (unknown) [facility] (units (unknown) date) unknown) (unknown) (no (unknown) (unknown) Loc: ECHO (units (unkn own) date) unknown) (unknown) (no (unknown) (unknown) [id number] (units (unk nown) date) unknown) (unknown) (no (unknown) (unknown) Nuclear (units (unkno wn) date) Medicine Report unknown) (unknown) (no (unknown) (unknown) Ordering (units (o wn) date) Provider: unknown) Chapito Sousa MD (unknown) (no (unknown) (unknown) PROCEDURE: (units (k n) date) Exercise stress unknown) test. (unknown) (no (unknown) (unknown) Patient: (units (o wn) date) Kathy Mariee unknown) L MR#: (unknown) (no (unknown) (unknown) Procedure: (units (unk n) date) Exercise unknown) treadmill NON NUC (unknown) (no (unknown) (unknown) Signed (units (unkno wn) date) unknown) (unknown) (no (unknown) (unknown) BUSINESS UNIT MANAGER/fn/lc (units (o wn) date) unknown) (unknown) (no (unknown) (unknown) and achieved 97 (units (unknown) date) percent of unknown) target heart rate with maximum heart rate of 140. (unknown) (no (unknown) (unknown) couplets and (units (u nknown) date) some ventricular unknown) triplets without any sustained ventricular (unknown) (no (unknown) (unknown) dd: 04/28/2022 (units (unknown) date) 17:49:00 dt: unknown) 04/28/2022 18:04:00 (unknown) (no (unknown) (unknown) doc#: (units (o wn) date) [id number]/job#: unknown) [id number] (unknown) (no (unknown) (unknown) hemodynamic (units (un known) date) response. unknown) Frequent premature ventricular contractions including (unknown) (no (unknown) (unknown) patient has (units (un known) date) moderate unknown) shortness of breath. (unknown) (no (unknown) (unknown) supervision of (units (unknown) date) an attending unknown) staff. She walked on Niraj protocol for 5 minutes (unknown) (no (unknown) (unknown) tachycardia. No (units (unknown) date) obvious atrial unknown) fibrillation seen. Correlate clinically. (unknown) (no (unknown) (unknown) ventricular (units (un known) date) contractions, unknown) including ventricular couplets and some triplets (unknown) (no (unknown) (unknown) without any (units (un known) date) sustained unknown) ventricular tachycardia. No chest discomfort. The Result panel 3 (unknown) (no date) (unknown) (unknown) Negative (units (unkn own) unknown) (unknown) (no date) (unknown) (unknown) Negative (units (unkn own) unknown) Result panel 4 (unknown) (no (unknown) (unknown) (no value) (units (unk nown) date) unknown) (unknown) (no (unknown) (unknown) [address] (units (unkn own) date) Street unknown) (unknown) (no (unknown) (unknown) Accession (units (unkn own) date) Number: unknown) (unknown) (no (unknown) (unknown) Achieved 7 METs (units (unknown) date) of workload and unknown) THEODORE -1 percent. Baseline rhythm was sinus. (unknown) (no (unknown) (unknown) Age/Sex: 77 / F (units (unknown) date) Date of Service: unknown) (unknown) (no (unknown) (unknown) [place], [place] (units ( unknown) date) [id number] unknown) (unknown) (no (unknown) (unknown) Baseline blood (units (unknown) date) pressure 138/78 unknown) mmHg. Maximum blood pressure 180/80 mmHg. (unknown) (no (unknown) (unknown) CARDIAC STRESS: (units (unknown) date) The patient unknown) underwent exercise stress test under the (unknown) (no (unknown) (unknown) CONCLUSION: (units (un known) date) Exercise stress unknown) test did not show any obvious inducible ischemia. (unknown) (no (unknown) (unknown) COPIES MNE: (units (un known) date) PALV; unknown) (unknown) (no (unknown) (unknown) DATE OF (units (unkno wn) date) SERVICE: unknown) 04/28/2022 (unknown) (no (unknown) (unknown) DICTATING (units (unkn own) date) MD/COPIES TO: unknown) Matthew Quach MD (unknown) (no (unknown) (unknown) : 1945 (units (unknown) date) Acct:[id number] unknown) (unknown) (no (unknown) (unknown) [facility] (units (unk nown) date) Kathy - MRN: unknown) [id number] (unknown) (no (unknown) (unknown) Draft (units (unkno wn) date) unknown) (unknown) (no (unknown) (unknown) During stress, (units (unknown) date) there were some unknown) nonspecific ST changes and frequent premature (unknown) (no (unknown) (unknown) Fair exercise (units ( unknown) date) tolerance. unknown) Functional aerobic impairment -1 percent. Normal (unknown) (no (unknown) (unknown) INDICATION: (units (un known) date) Paroxysmal AFib. unknown) (unknown) (no (unknown) (unknown) [facility] (units (unknown) date) unknown) (unknown) (no (unknown) (unknown) Loc: ECHO (units (unkn own) date) unknown) (unknown) (no (unknown) (unknown) [id number] (units (unk nown) date) unknown) (unknown) (no (unknown) (unknown) Nuclear (units (unkno wn) date) Medicine Report unknown) (unknown) (no (unknown) (unknown) Ordering (units (unkno wn) date) Provider: unknown) (unknown) (no (unknown) (unknown) PROCEDURE: (units (unk nown) date) Exercise stress unknown) test. (unknown) (no (unknown) (unknown) Patient: (units (unkno wn) date) Kathy Mariee unknown) L MR#: (unknown) (no (unknown) (unknown) Procedure: (units (unk nown) date) unknown) (unknown) (no (unknown) (unknown) BUSINESS UNIT MANAGER/fn/lc (units (unkno wn) date) unknown) (unknown) (no (unknown) (unknown) and achieved 97 (units (unknown) date) percent of unknown) target heart rate with maximum heart rate of 140. (unknown) (no (unknown) (unknown) couplets and (units (u nknown) date) some ventricular unknown) triplets without any sustained ventricular (unknown) (no (unknown) (unknown) dd: 04/28/2022 (units (unknown) date) 17:49:00 dt: unknown) 04/28/2022 18:04:00 (unknown) (no (unknown) (unknown) doc#: (units (unkno wn) date) [id number]/job#: unknown) [id number] (unknown) (no (unknown) (unknown) hemodynamic (units (un known) date) response. unknown) Frequent premature ventricular contractions including (unknown) (no (unknown) (unknown) patient has (units (un known) date) moderate unknown) shortness of breath. (unknown) (no (unknown) (unknown) supervision of (units (unknown) date) an attending unknown) staff. She walked on Niraj protocol for 5 minutes (unknown) (no (unknown) (unknown) tachycardia. No (units (unknown) date) obvious atrial unknown) fibrillation seen. Correlate clinically. (unknown) (no (unknown) (unknown) ventricular (units (un known) date) contractions, unknown) including ventricular couplets and some triplets (unknown) (no (unknown) (unknown) without any (units (un known) date) sustained unknown) ventricular tachycardia. No chest discomfort. The Result panel 5 (unknown) (no (unknown) (unknown) (no value) (units (unk nown) date) unknown) (unknown) (no (unknown) (unknown) [address] (units (unkn own) date) Street unknown) (unknown) (no (unknown) (unknown) Accession (units (unkn own) date) Number: unknown) (unknown) (no (unknown) (unknown) Achieved 7 METs (units (unknown) date) of workload and unknown) THEODORE -1 percent. Baseline rhythm was sinus. (unknown) (no (unknown) (unknown) Age/Sex: 77 / F (units (unknown) date) Date of Service: unknown) (unknown) (no (unknown) (unknown) [place] (units ( unknown) date) [id number] unknown) (unknown) (no (unknown) (unknown) Baseline blood (units (unknown) date) pressure 138/78 unknown) mmHg. Maximum blood pressure 180/80 mmHg. (unknown) (no (unknown) (unknown) CARDIAC STRESS: (units (unknown) date) The patient unknown) underwent exercise stress test under the (unknown) (no (unknown) (unknown) CONCLUSION: (units (un known) date) Exercise stress unknown) test did not show any obvious inducible ischemia. (unknown) (no (unknown) (unknown) COPIES MNE: (units (un known) date) PALV; unknown) (unknown) (no (unknown) (unknown) DATE OF (units (unkno wn) date) SERVICE: unknown) 04/28/2022 (unknown) (no (unknown) (unknown) DICTATING (units (unkn own) date) MD/COPIES TO: unknown) Matthew Quach MD (unknown) (no (unknown) (unknown) : 1945 (units (unknown) date) Acct:[id number] unknown) (unknown) (no (unknown) (unknown) [place], (units (unk nown) date) Kathy - MRN: unknown) [id number] (unknown) (no (unknown) (unknown) During stress, (units (unknown) date) there were some unknown) nonspecific ST changes and frequent premature (unknown) (no (unknown) (unknown) Fair exercise (units ( unknown) date) tolerance. unknown) Functional aerobic impairment -1 percent. Normal (unknown) (no (unknown) (unknown) INDICATION: (units (un known) date) Paroxysmal AFib. unknown) (unknown) (no (unknown) (unknown) [facility] (units (unknown) date) unknown) (unknown) (no (unknown) (unknown) Loc: ECHO (units (unkn own) date) unknown) (unknown) (no (unknown) (unknown) [id number] (units (unk nown) date) unknown) (unknown) (no (unknown) (unknown) Nuclear (units (unkno wn) date) Medicine Report unknown) (unknown) (no (unknown) (unknown) Ordering (units (unkno wn) date) Provider: unknown) (unknown) (no (unknown) (unknown) PROCEDURE: (units (unk nown) date) Exercise stress unknown) test. (unknown) (no (unknown) (unknown) Patient: (units (o wn) date) Kathy Mariee unknown) Matt MR#: (unknown) (no (unknown) (unknown) Procedure: (units (unk nown) date) unknown) (unknown) (no (unknown) (unknown) Signed (units (unkno wn) date) unknown) (unknown) (no (unknown) (unknown) BUSINESS UNIT MANAGER/fn/lc (units (unkno wn) date) unknown) (unknown) (no (unknown) (unknown) and achieved 97 (units (unknown) date) percent of unknown) target heart rate with maximum heart rate of 140. (unknown) (no (unknown) (unknown) couplets and (units (u nknown) date) some ventricular unknown) triplets without any sustained ventricular (unknown) (no (unknown) (unknown) dd: 04/28/2022 (units (unknown) date) 17:49:00 dt: unknown) 04/28/2022 18:04:00 (unknown) (no (unknown) (unknown) doc#: (units (o wn) date) [id number]/job#: unknown) [id number] (unknown) (no (unknown) (unknown) hemodynamic (units (un known) date) response. unknown) Frequent premature ventricular contractions including (unknown) (no (unknown) (unknown) patient has (units (un known) date) moderate unknown) shortness of breath. (unknown) (no (unknown) (unknown) supervision of (units (unknown) date) an attending unknown) staff. She walked on Niraj protocol for 5 minutes (unknown) (no (unknown) (unknown) tachycardia. No (units (unknown) date) obvious atrial unknown) fibrillation seen. Correlate clinically. (unknown) (no (unknown) (unknown) ventricular (units (un known) date) contractions, unknown) including ventricular couplets and some triplets (unknown) (no (unknown) (unknown) without any (units (un known) date) sustained unknown) ventricular tachycardia. No chest discomfort. The Social History No information. Vital Signs No information.
[2022-05-21 21:40] LABS: BASOPHILS # (AUTO) 0.1 10^3/uL (0.0-0.1); BASOPHILS % (AUTO) 0.9 %; EOSINOPHILS # (AUTO) 0.4 10^3/uL (0.0-0.7); EOSINOPHILS % (AUTO) 4.7 %; HCT - HEMATOCRIT 45.2 % (37.0-47.0); HGB - HEMOGLOBIN 14.7 g/dL (12.0-16.0); LYMPHOCYTES # (AUTO) 4.4 10^3/uL (1.5-3.5); LYMPHOCYTES % (AUTO) 54.8 %; MEAN CORPUSCULAR HEMOGLOBIN 30.2 pg (27.0-31.0); MEAN CORPUSCULAR HGB CONC 32.5 g/dL (32.0-36.0); MEAN CORPUSCULAR VOLUME 92.8 fL (81.0-99.0); MEAN PLATELET VOLUME 11.5 fL (7.9-10.8); MONOCYTES # (AUTO) 0.7 10^3/uL (0.0-1.0); MONOCYTES % (AUTO) 8.2 %; NEUTROPHILS # (AUTO) 2.5 10^3/uL (1.5-6.6); NEUTROPHILS % (AUTO) 31.3 %; PLT - PLATELET COUNT 252 10^3/uL (130-450); RED BLOOD COUNT 4.87 10^6/uL (4.20-5.40); RED CELL DISTRIBUTION WIDTH 12.4 % (12.0-15.0); WHITE BLOOD COUNT 8.1 x10^3/uL (4.8-10.8)
[2022-05-21 21:53] LABS: ALBUMIN 3.8 g/dL (3.2-5.5); ALBUMIN/GLOBULIN RATIO 1.2 (1.0-2.2); BILIRUBIN,TOTAL 0.2 mg/dL (0.2-1.0); CALCIUM 9.1 mg/dL (8.5-10.3); CREATININE 0.8 mg/dL (0.4-1.0); POTASSIUM 3.8 mmol/L (3.5-5.0)
[2022-05-21] MEDS ORDERED: SODIUM CHLORIDE 0.9% 500 ML IV STA (21:58)
--- NOTE | 2022-05-21 22:55 | XRAY Report ---
PROCEDURE: Chest 1 View X-Ray INDICATIONS: Chest pain TECHNIQUE: One view of the chest was acquired. COMPARISON: 07/28/2020, 01/01/2019 FINDINGS: Surgical changes and devices: None. Lungs and pleura: There is mild blunting of the left lateral costophrenic angle suggestive of a smal l left pleural effusion or pleural thickening. Lungs are otherwise clear. Mediastinum: There is leftward deviation of the trachea at the level of the thoracic inlet which may represent enlargement of the right thyroid lobe or possible mass. Heart size is normal. Bones and chest wall: No suspicious bony lesions. Overlying soft tissues appear unremarkable. IMPRESSION: 1. Small left pleural effusion versus pleural thickening. 2. No acute consolidation. 3. Leftward deviation of the trachea at the level of the thoracic inlet. Findings may reflect enlarge ment of the right thyroid lobe or a possible mass. Findings are similar to the prior studies. Conside r further evaluation with thyroid ultrasound or nonemergent CT. Reviewed by: Gopal Smith MD on 05/21/2022 10:54 PM PDT Approved by: Gopal Smith MD on 05/21/2022 10:54 PM PDT Station ID: [id number]
--- NOTE | 2022-05-21 23:33 | ED Physician Documentation ---
History of Present Illness - Stated complaint Stated Complaint: IRREGULAR HR/HEADACHE - Chief complaint Chief Complaint: Cardiac - History obtained from History obtained from: Patient - Additonal information Additional information: Patient is a 77-year-old female presenting for evaluation of palpitations with headache after starting a new prescription for flecainide tonight.She has a history of atrial fibrillation and was on metoprolol. She had been having frequent episodes of A. fib and so after seeing her horseradish maker today they decided to change to flecainide. She took the first dose this evening and started feeling her heart racing. She wears a heart monitor on her watch which had rates up in the 160s. She reports having a headache with it. She denies having chest pain or difficulty breathing. She reports feeling better since arriving here.She is anticoagulated On warfarin and last had her INR checked on Tuesday. She also recently had an echocardiogram and stress test which did not show any concerns. Choker Setter is Dr. Sousa Review of Systems Constitutional: denies: Fever Nose: denies: Congestion Cardiac: reports: Palpitations. 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 : None HEENT: None, Other Psych: Anxiety Derm: None - Past Surgical History Past Surgical History: Yes HEENT: Cataracts - Present Medications Home Medications: Ambulatory Orders Medication Instructions Recorded Confirmed Digoxin [Lanoxin] 250 mg PO DAILY 05/21/22 05/21/22 Flecainide [Tambocar] 50 mg PO DAILY 05/21/22 05/21/22 Metoprolol Succinate [Toprol Xl] 25 mg PO BID 05/21/22 05/21/22 Warfarin [Coumadin] 5 mg PO DAILY 05/21/22 05/21/22 - Allergies Allergies/Adverse Reactions: Allergies Allergy/AdvReac Type Severity Reaction Status Date / Time amlodipine [From [facility]] Allergy Unknown Verified 05/21/22 21:44 - Social History Does the pt smoke?: No Smoking Status: Never smoker Does the pt drink ETOH?: No Does the pt have substance abuse?: No - Immunizations Immunizations are current?: Yes - POLST Patient has POLST: No PD ED PE NORMAL - General General: Alert and oriented X 3, No acute distress, Well developed/nourished - HEENT HEENT: Atraumatic, Moist mucous membranes - Neck Neck: Supple, no meningeal sign - Cardiac Cardiac: Strong equal pulses, Other (Irregularly irregular, rates from 90s to low 100s) - Respiratory Respiratory: No respiratory distress, Clear bilaterally - Abdomen Abdomen: Soft, Non tender - Derm Derm: Warm and dry - Extremities Extremities: No edema - Neuro Neuro: Normal speech Results - Vitals Vitals: Vital Signs - 24 hr 05/21/22 05/21/22 05/21/22 21:25 22:01 22:50 Temperature 36.6 C Heart Rate 113 H 102 H 68 Respiratory 13 28 H 14 Rate Blood Pressure 171/80 H 137/89 H 137/89 H O2 Saturation 98 97 100 05/21/22 05/21/22 23:00 23:50 Temperature 35.9 C L Heart Rate 58 L 60 Respiratory 12 18 Rate Blood Pressure 141/68 H 138/58 H O2 Saturation 97 96 Oxygen O2 Source Room air - EKG (time done) 2123 Rate: Rate (enter#) (107) Rhythm: Atrial fibrillation [place]: LAD Ischemia: No: ST elevation c/w ischemia 2311 Rate: Rate (enter#) (62) Rhythm: NSR [place]: LAD Ischemia: No: ST elevation c/w ischemia Compare to prior EKG: Changed from prior EKG (Patient is converted from atrial fibrillation to normal sinus rhythm) - Labs Labs: Laboratory Tests 05/21/22 05/21/22 05/21/22 21:30 21:30 21:30 WBC 8.1 RBC 4.87 Hgb 14.7 Hct 45.2 MCV 92.8 MCH 30.2 MCHC 32.5 RDW 12.4 Plt Count 252 MPV 11.5 H Neut # (Auto) 2.5 Lymph # (Auto) 4.4 H [place] # (Auto) 0.7 Eos # (Auto) 0.4 Baso # (Auto) 0.1 Absolute Nucleated RBC 0.00 Nucleated RBC % 0.0 Sodium 135 Potassium 3.8 Chloride 101 Carbon Dioxide 26 Anion Gap 8.0 BUN 13 Creatinine 0.8 Estimated GFR (MDRD) 70 L Glucose 133 H Calcium 9.1 Total Bilirubin 0.2 AST 19 ALT 25 Alkaline Phosphatase 93 Troponin I High Sens 4.7 Total Protein 7.0 Albumin 3.8 Globulin 3.2 Albumin/Globulin Ratio 1.2 Lipase 32 PD MEDICAL DECISION MAKING - ED course Complexity details: reviewed results, re-evaluated patient, d/w patient, d/w family ED course: Patient with a history of A. fib started on new medications this evening. Noticed that she was in A. fib with RVR. Denies chest pain. Initial EKG with atrial fibrillation and rate in the low 100s. Patient feeling better with IV fluids and converted to sinus rhythm.Denies any symptoms to suggest cardiac ischemia. Patient counseled on need for close follow-up with her horseradish maker as well as concerning symptoms to return for. Departure - Departure Disposition: 01 Home, Self Care Clinical Impression: Paroxysmal atrial fibrillation Condition: Stable Instructions: ED Afib Follow-Up: Chapito Sousa MD [Physician No Access] - Comments: You initially were found to be in atrial fibrillation. Your labs were reassuring including a marker to check for signs of a heart attack. It seems that your heart has converted back to a regular rhythm. Please call your horseradish maker as soon as possible to discuss your medications. If you have any concerning symptoms please return to the ER. Discharge Date/Time: 05/21/22 23:56
[2022-05-22 00:03] VITALS: BP 138/58
== END 2022-05-21 23:56 | disposition home or self-care (01) ==
LOC: ED 21:19
DX: I48.0 Paroxysmal atrial fibrillation (principal); Z79.01 Long term (current) use of anticoagulants
CPT/HCPCS: 36415; 80053; 83690; 84484; 85025; 93005; 96360; 99284

== ENCOUNTER 2022-06-02 13:01 | Outpatient (CLI) | payer MEDICARE, OTHER | END 2022-06-02 13:02 | disposition home or self-care (01) | LOC: RT 13:01 | PROVIDERS: ATTEND Internal Medicine Cardiovascular Disease | DX: I48.0 Paroxysmal atrial fibrillation (principal) | CPT/HCPCS: 93005 ==

== ENCOUNTER 2022-09-15 08:00 | Outpatient (CLI) | payer MEDICARE, OTHER | END 2022-09-15 23:59 | disposition home or self-care (01) | LOC: LAB.WCP 08:00 | PROVIDERS: ATTEND Family Medicine | DX: Z79.01 Long term (current) use of anticoagulants (principal); I48.0 Paroxysmal atrial fibrillation ==

== ENCOUNTER 2023-01-21 08:00 | Outpatient (CLI) | payer MEDICARE, OTHER | END 2023-01-21 23:59 | disposition home or self-care (01) | LOC: LAB.N 08:00 | PROVIDERS: ATTEND Family Medicine | DX: Z79.01 Long term (current) use of anticoagulants (principal); I48.0 Paroxysmal atrial fibrillation ==

== ENCOUNTER 2023-04-07 15:52 | Outpatient (CLI) | payer MEDICARE, OTHER ==
[2023-04-07 17:56] LABS: CALCIUM 8.9 mg/dL (8.5-10.3); CREATININE 0.8 mg/dL (0.6-1.3); POTASSIUM 4.4 mmol/L (3.5-4.5)
== END 2023-04-07 15:53 | disposition home or self-care (01) ==
LOC: LAB.N 15:52
PROVIDERS: ATTEND Internal Medicine Cardiovascular Disease
DX: I10 Essential (primary) hypertension (principal)
CPT/HCPCS: 36415; 80048; 80053; 80061; 83036; 83721; 84439; 84443; 84481; 85025

== ENCOUNTER → 2023-07-15 | Outpatient (CLI) | payer MEDICARE, OTHER | LOC: LAB.WCP 08:00 | PROVIDERS: ATTEND Physician Assistant | DX: I48.0 Paroxysmal atrial fibrillation (principal); Z79.01 Long term (current) use of anticoagulants ==

== ENCOUNTER 2023-11-28 14:49 | Outpatient (CLI) | payer MEDICARE ==
[2023-11-28 18:00] LABS: CALCIUM 8.9 mg/dL (8.5-10.3); CREATININE 0.7 mg/dL (0.6-1.3); POTASSIUM 4.3 mmol/L (3.5-4.5)
== END 2023-11-28 14:50 | disposition home or self-care (01) ==
LOC: LAB.N 14:49
PROVIDERS: ATTEND Internal Medicine Cardiovascular Disease
DX: I10 Essential (primary) hypertension (principal)
CPT/HCPCS: 36415; 80048

== ENCOUNTER 2024-11-09 09:37 | Inpatient (IN) ==
--- OUTSIDE RECORDS SUMMARY | 2024-11-09 10:49 | EXTERNAL MEDICAL SUMMARY RPT | Continuity of Care Document ---
Author Organization [facility] Address [address] [address] Phone Problems date description facility 2024-10-26 09:32 Essential (primary) hypertensio n [facility] 2024-10-27 00:03 Essential (primary) hypertensio n [facility] Results/Labs test date facility value unit notes Result panel 1 CREATININE 2024-10-26 09:39 [facility] 0.7 mg/dl As of January 2023 testing method has changed, this may include reference ranges. CHLORIDE 2024-10-26 09:39 [facility] 104 mmol/l As of January 2023 testing method has changed, this may include reference ranges. GLUCOSE 2024-10-26 09:39 [facility] 106 mg/dl As of January 2023 testing method has changed, this may include reference ranges. BUN - BLOOD UREA NITROGEN 2024-10-26 09:39 [facility] 12 mg/dl As of Jan testing method has changed, this may include reference ranges. SODIUM 2024-10-26 09:39 [facility] 138 mmol/l As of January 2023 testing method has changed, this may include reference ranges. ANION GAP 2024-10-26 09:39 [facility] 3.0 (missing ) (missing) CARBON DIOXIDE - CO2 2024-10-26 09:39 [facility] 31 mmol/l As of January 2023 testing method has changed, this may include reference ranges. POTASSIUM 2024-10-26 09:39 [facility] 4.2 mmol/l As of January 2023 testing method has changed, this may include reference ranges. CALCIUM 2024-10-26 09:39 [facility] 8.7 mg/dl As of January 2023 testing method has changed, this may include reference ranges. GFR - MDRD 2024-10-26 09:39 [facility] 81 (missin g) Social History date description facility
[2024-11-09 10:54] LABS: BASOPHILS # (AUTO) 0.1 10^3/uL (0.0-0.1); BASOPHILS % (AUTO) 0.3 %; EOSINOPHILS % (AUTO) 0.1 %; HCT - HEMATOCRIT 38.9 % (37.0-47.0); HGB - HEMOGLOBIN 13.4 g/dL (12.0-16.0); LYMPHOCYTES # (AUTO) 1.4 10^3/uL (1.5-3.5); LYMPHOCYTES % (AUTO) 9.7 %; MEAN CORPUSCULAR HEMOGLOBIN 30.6 pg (27.0-31.0); MEAN CORPUSCULAR HGB CONC 34.4 g/dL (32.0-36.0); MEAN CORPUSCULAR VOLUME 88.8 fL (81.0-99.0); MEAN PLATELET VOLUME 11.3 fL (7.9-10.8); MONOCYTES # (AUTO) 1.5 10^3/uL (0.0-1.0); MONOCYTES % (AUTO) 10.1 %; NEUTROPHILS # (AUTO) 11.4 10^3/uL (1.5-6.6); NEUTROPHILS % (AUTO) 79.5 %; PLT - PLATELET COUNT 255 10^3/uL (130-450); RED BLOOD COUNT 4.38 10^6/uL (4.20-5.40); WHITE BLOOD COUNT 14.3 x10^3/uL (4.8-10.8)
[2024-11-09] MEDS: ONDANSETRON ODT 4 MG TABLET TL STA (11:16)
[2024-11-09 11:34] LABS: ALBUMIN 3.9 g/dL (3.2-5.5); ALBUMIN/GLOBULIN RATIO 1.4 (1.0-2.2); CREATININE 0.4 mg/dL (0.6-1.3); POTASSIUM 4.1 mmol/L (3.5-4.5); TOTAL PROTEIN 6.7 g/dL (6.4-8.9)
[2024-11-09] MEDS ORDERED: iohexoL-300 100 ML VIAL ONE (11:51)
--- NOTE | 2024-11-09 11:52 | ED Physician Documentation ---
History of Present Illness Stated complaint Stated Complaint: VOMIT Chief complaint Chief Complaint: Abd Pain History obtained from History obtained from: Patient History of Present Illness Timing: Prior to arrival Additonal information Additional information: Patient is a 79-year-old female presenting to the emergency department with past medical history of atrial fibrillation on dabigatran, digoxin, flecainide. with epigastric pain nausea vomiting that has been going on since Tuesday. She notes she has had a potluck and that evening had severe nausea and vomiting. She denies any fevers but has had some epigastric pain. No diarrhea with her symptoms. No radiation up to her chest no shortness of breath with her symptoms. Patient has no history of abdominal surgeries. She denies ever having symptoms like this before. She has not been able to take anything for symptoms. She was unable to keep any sips of water down this morning and came straight to the ED. No hematemesis. No history of abdominal surgeries. No recent travel. No recent antibiotic use. Meds/Allgy Home Medications Ambulatory Orders Medication Instructions Recorded Confirmed digoxin 250 mcg (0.25 mg) tablet 250 mg PO DAILY 05/21/22 11/10/24 (Lanoxin) metoprolol succinate 25 mg 25 mg PO BID 05/21/22 11/10/24 tablet,extended release 24 hr cholecalciferol (vitamin D3) 50 50 mcg PO QDAY 05/14/24 11/10/24 mcg (2,000 unit) capsule flecainide 100 mg tablet 100 mg PO BID 05/14/24 11/10/24 losartan 50 mg tablet 50 mg PO BID 05/14/24 11/10/24 magnesium oxide 500 mg PO QDAY 05/14/24 11/10/24 melatonin 10 mg capsule 10 mg PO HS PRN sleep 05/14/24 11/10/24 dabigatran etexilate 150 mg capsule 150 mg PO BID #180 caps 07/03/24 11/10/24 Allergies Allergies Allergy/AdvReac Type Severity Reaction Status Date / Time amlodipine (From [facility]) Allergy Unknown Verified 11/09/24 10:28 [facility] Active Problems All Active Problems (Updated 11/09/24 @ 15:26 by Taina Zelaya PA-C) Acute cholecystitis (Acute) Nausea & vomiting (Acute) Acute hyponatremia (Acute) Goiter diffuse, nontoxic (Acute) Atrial fibrillation (Acute) Hypertension (Acute) Osteopenia after menopause (Acute) Toe pain, right (Acute) Family History Family History (Updated 05/14/24 @ 10:46 by Anna Tripp LPN) Mother Heart attack CVA (cerebral vascular accident) Father Asthma Brother Enlarged heart Mental disorder Daughter Breast cancer Autoimmune disease Son Mental disorder Aunt Diabetes Cousin Diabetes Leukemia Social History Social History (Updated 05/14/24 @ 10:51 by Anna Tripp LPN) Smoking Status: Never smoker Second hand tobacco smoke exposure: Yes Do you dip or chew tobacco?: No Do you vape?: No Patient requests smoking cessation consult: No Initiate information on smoking cessation: No Living arrangement: At home Marital Status: Living Condition: With spouse/s.o. 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 Known occupational exposures/hazards (Current/Previous): None known Service: No Are you following a diet prescribed by a doctor: No Are you following a special diet: Yes Special Diet Details: Axel POL Patient has POLST: Yes POLST Status: DNR Exam Exam Vital Signs: Vital Signs x48h Temp Pulse Resp BP Pulse Ox 11/09/24 12:34 57 L 18 197/64 H 97 11/09/24 10:23 36.3 C L 60 20 196/60 H 94 Constitutional normal general appearance HENMT normocephalic, head/scalp atraumatic and hearing grossly normal bilaterally Eyes PERRL, EOMs intact bilaterally and conjunctivae normal Neck/C-Spine visual inspection normal Lymph no lymphadenopathy noted Chest inspection of chest normal Respiratory breath sounds equal bilaterally, normal respiratory effort and clear to auscultation bilaterally Cardiovascular normal heart rate noted, regular rhythm noted, no gallop and no rub Gastrointestinal abdomen normal to inspection and normoactive bowel sounds Soft to touch but tenderness in right upper and left upper quadrants as well as in epigastric region reproducible tenderness in these regions with no CVA tenderness. Generalized guarding throughout. No lower abdominal tenderness. Results Vitals Vitals: Oxygen O2 Source Room air Labs Labs: Laboratory Tests 11/09/24 11/09/24 10:44 12:35 WBC 14.3 H RBC 4.38 Hgb 13.4 Hct 38.9 MCV 88.8 MCH 30.6 MCHC 34.4 RDW 11.0 L Plt Count 255 MPV 11.3 H Neut # (Auto) 11.4 H Lymph # (Auto) 1.4 L [place] # (Auto) 1.5 H Eos # (Auto) 0.0 Baso # (Auto) 0.1 Absolute Nucleated RBC 0.00 Nucleated RBC % 0.0 Sodium 117 L* Potassium 4.1 Chloride 85 L Carbon Dioxide 25 Anion Gap 7.0 BUN 7 Creatinine 0.4 L Estimated GFR (MDRD) 154 Glucose 192 H Calcium 9.0 Magnesium 1.7 Total Bilirubin 1.0 AST 14 ALT 12 Alkaline Phosphatase 72 Total Protein 6.7 Albumin 3.9 Globulin 2.8 Albumin/Globulin Ratio 1.4 Lipase 10 L Urine Color YELLOW Urine Clarity CLEAR Urine pH 7.5 Ur Specific Story 1.010 Urine Protein 30 H Urine Glucose (UA) 500 H Urine Ketones NEGATIVE Urine Occult Blood SMALL H Urine Nitrite NEGATIVE Urine Bilirubin NEGATIVE Urine Urobilinogen 0.2 (NORMAL) Ur Leukocyte Esterase NEGATIVE Urine RBC 0-5 Urine WBC 0-3 Ur Squamous Epith Cells FEW Squamous Urine Bacteria Rare Ur Microscopic Review INDICATED Urine Culture Comments NOT INDICATED Urine Sodium 43.0 Last Dose Date UNK Last Dose Time UNK Digoxin < 0.3 PD Medical Decision Making ED course Complexity details: reviewed old records and reviewed results ED course: Patient is a 79-year-old female presenting with recurrent nausea and vomiting that has been going on since Tuesday. Upper abdominal pain in mid and RUQ present here in the ED. Mild leukocytosis of 14, CMP shows significant hyponatremia 117 most likely due to dehydration however pending [place], serum osmolality and U osm. No significant CIARAN or LFT's. Lipase within normal limits. CT abdomen pelvis: Distended gallbladder with cholelithiasis including a gallstone at the neck. Moderate inflammatory changes. Findings are suspicious for cholecystitis, which could be confirmed on ultrasound if necessary. Pancreatic cystic lesions measuring up to 1.5 cm at the tail, with focal atrophy. Nonurgent pancreas protocol MRI is suggested for surveillance. Other findings above. Distended gallbladder with cholelithiasis, gallbladder wall thickening and small amount of pericholecystic fluid concerning for acute cholecystitis. Prominence of common bile duct for patient's age and measures up to 8.6 mm in diameter. No obvious choledocholithiasis is seen 1520: Discussed with Jimmy, patient does not meet surgical criteria at this time for concerns of hyponatremia. No surgery would be done if patient is admitted to this ED. Dr. Chang was consulted as hospitalist and updated on findings discussed with Dr. Marquez, he is agreeable with admission here in the hospitals for low sodi um. Patient was given a dose of zosyn here in the ED. Discharge Plan Discharge Patient Disposition: 66 [facility] DC/Xfer Condition: Stable Clinical Impression: Acute hyponatremia, Nausea & vomiting, Acute cholecystitis Interventions: ED Admission Assessment Last Done: 11/09/24 16:28
[2024-11-09 12:09] LABS: MAGNESIUM 1.7 mg/dL (1.7-2.3)
[2024-11-09 12:13] LABS: DIGOXIN < 0.3 ng/mL
[2024-11-09] MEDS: SODIUM CHLORIDE 0.9% 1,000 ML IV STA (12:31)
--- NOTE | 2024-11-09 12:32 | CT Report ---
PROCEDURE: CT Abdomen/Pelvis W INDICATIONS: epigastric pain CONTRAST: IV omni 300, 100 TECHNIQUE: After the administration of intravenous contrast, a CT scan of the abdomen and pelvis was performed. Images were recorded and evaluated at appropriate window settings. Reformats: coronal and sagittal. F or radiation dose reduction, the following was used: automated exposure control, adjustment of mA and /or kV according to patient size. COMPARISON: None FINDINGS: Image quality: Diagnostic Lower chest: Small Bochdalek's hernia on the left. Lower lung scarring/atelectasis, mild to moderate. Trace hiatal hernia. Normal heart size. Liver: Unremarkable , small segment 4 cysts. Gallbladder and biliary system: Moderate gallbladder distention, gallstones, including one at the nec k, and moderate pericholecystic edema. No biliary ductal dilation Pancreas: No ductal dilation. There are cystic lesions, including a 1.5 cm lesion at the tail with fo sj atrophy. Spleen: Nonenlarged Adrenals: No discrete nodules Kidneys: No solid mass. No hydronephrosis. Vessels and lymph nodes: No abdominal aortic aneurysm. Main portal vein is patent. Mild atherosclerot ic calcifications. No pathologic lymph nodes by size criteria. Bowel and peritoneum: No small bowel obstruction. Small amount pelvic free fluid, without drainable abscess or ascites. Edema extends along the right p aracolic gutter. There are colonic diverticula. No definite acute inflammation Body wall: Small fat-containing left femoral hernia. Pelvis: Bladder is unremarkable. Endometrium measures 4 mm, slightly prominent, consider ultrasound i f there are any postmenopausal bleeding symptoms. Bones: No aggressive appearing osseous abnormality. There are degenerative changes. IMPRESSION: Distended gallbladder with cholelithiasis including a gallstone at the neck. Moderate inflammatory ch anges. Findings are suspicious for cholecystitis, which could be confirmed on ultrasound if necessary . Pancreatic cystic lesions measuring up to 1.5 cm at the tail, with focal atrophy. Nonurgent pancreas protocol MRI is suggested for surveillance. Other findings above. Reviewed by: Hasmukh Wolf MD on 11/09/2024 12:31 PM PDT Approved by: Hasmukh Wolf MD on 11/09/2024 12:31 PM PDT Station ID: [id number]
[2024-11-09 12:47] LABS: BILIRUBIN,URINE NEGATIVE (NEGATIVE); CLARITY,URINE CLEAR (CLEAR); GLUCOSE, URINE (UA) 500 mg/dL (NEGATIVE); KETONES,URINE (UA) NEGATIVE (NEGATIVE); LEUKOCYTE ESTERASE, URINE NEGATIVE (NEGATIVE); NITRITE,URINE NEGATIVE (NEGATIVE); OCCULT BLOOD,URINE SMALL (NEGATIVE); PH,URINE 7.5 PH (5.0-7.5); PROTEIN,URINE 30 mg/dL (NEGATIVE); UROBILINOGEN,URINE 0.2 (NORMAL) E.U./dL (NORMAL)
[2024-11-09] MEDS: MORPHINE 2 MG/ML CARPUJECT IVP STA (12:50)
[2024-11-09 13:12] LABS: BACTERIA,URINE Rare /HPF (None Seen); RBC,URINE 0-5 /HPF (0-5); SQUAMOUS EPITHELIAL CELL,UR FEW Squamous (<= Few); WBC,URINE 0-3 /HPF (0-5)
[2024-11-09] MEDS: iohexoL-300 100 ML VIAL IVP ONE (13:57)
[2024-11-09] MEDS: PIPERACILLIN/TAZOBACTAM 3.375 GM in SODIUM CHLORIDE 0.9% MINIBAG 100 ML IV STA (14:19)
--- NOTE | 2024-11-09 14:53 | Ultrasound Report ---
PROCEDURE: US Abdomen Limited INDICATIONS: Right Upper quadrant pain, CT shows gall stone TECHNIQUE: Real-time focused scanning was performed of the abdomen, with image documentation. COMPARISONS: CT of abdomen and pelvis from the same day. FINDINGS: Gallbladder: Stones and sludge material is seen stones and sludge material are noted filling gallblad damaris lumen. 3.4 cm stone is noted near the neck of gallbladder. There is gallbladder wall thickening m easures up to 6.3 mm in thickness. Small pericholecystic fluid is also seen. No definite sonographic Bullock's sign. Biliary ducts: Intrahepatic bile ducts are non-dilated. Extrahepatic bile duct caliber measures 8.6 mm. Normal is 6-7 mm or less in diameter, or 10 mm or less post-cholecystectomy. Miscellaneous: No free abdominal fluid. IMPRESSION: Distended gallbladder with cholelithiasis, gallbladder wall thickening and small amount o f pericholecystic fluid concerning for acute cholecystitis. Prominence of common bile duct for patient's age and measures up to 8.6 mm in diameter. No obvious ch oledocholithiasis is seen. Reviewed by: Aden Nichole MD on 11/09/2024 2:51 PM PDT Approved by: Aden Nichole MD on 11/09/2024 2:51 PM PDT Station ID: [id number]
--- OUTSIDE RECORDS SUMMARY | 2024-11-09 15:47 | EXTERNAL MEDICAL SUMMARY RPT | Continuity of Care Document ---
Author Organization [facility] Address [address] [address] Phone Problems date description facility 2024-10-26 09:32 [facility] 2024-10-27 00:03 Essential (primary[facility] Results/Labs test date facility value unit notes Result panel 1 CREATININE 2024-10-26 09:39 [facility] 0.7 mg/dl As of January 2023 testing method has changed, this may include reference ranges. CHLORIDE 2024-10-26 09:39 [facility] 104 mmol/l As of January 2023 testing method has changed, this may include reference ranges. GLUCOSE 2024-10-26 09:39 [facility] 106 mg/dl As of January 2023 testing method has changed, this may include reference ranges. BUN - BLOOD UREA NITROGEN 2024-10-26 09:39 [facility] 12 mg/dl As of Jan testing method has changed, this may include reference ranges. SODIUM 2024-10-26 09:39 [facility] 138 mmol/l As of January 2023 testing method has changed, this may include reference ranges. ANION GAP 2024-10-26 09:39 [facility] 3.0 (missing ) (missing) CARBON DIOXIDE - CO2 2024-10-26 09:39 [facility] 31 mmol/l As of January 2023 testing method has changed, this may include reference ranges. POTASSIUM 2024-10-26 09:39 [facility] 4.2 mmol/l As of January 2023 testing method has changed, this may include reference ranges. CALCIUM 2024-10-26 09:39 [facility] 8.7 mg/dl As of January 2023 testing method has changed, this may include reference ranges. GFR - MDRD 2024-10-26 09:39 [facility] 81 (missin g) Social History date description facility
[2024-11-09] MEDS: ONDANSETRON 4 MG/2 ML VIAL IVP PRN (17:00)
[2024-11-09] MEDS: SODIUM CHLORIDE FLUSH 0.9% 10 ML SYRINGE IVP SCH (17:04)
[2024-11-09] MEDS: HYDROmorphone 0.5 MG/0.5 ML SYRINGE IVP PRN (17:30)
--- NOTE | 2024-11-09 18:08 | HISTORY & PHYSICAL EXAMINATION ---
Chief Complaint Chief Complaint Chief Complaint: abdominal pain History of Present Illness Admitted From Admitted From:: emergency room History Obtained From Records Reviewed: EMR History obtained from: patient Exam Limitations: none History of Present Illness HPI Comment/Other: 79 yo F with pmhx of afib on dabigatran, asthma, HTN, PUD (35 yrs ago) presenting with upper abdominal pain, n/v x 3 days. No diarrhea. No fever. Symptoms started after a potluck. Pain is primarily epigastric but sometimes RUQ and LUQ. She has not been able to eat or drink much in past couple days. Regular BM, last yesterday. Pt came to the ED today due to worsening pain and bloating. She denies any pain related to intake of fatty foods in recent days-weeks. No h/o gallstones. In the ED, pt was afebrile, BP 190s/60s, HR 60s. She was given zofran, pip-tazo, and 1 L NS, morphine. Nausea resolved. Pain much improved. Meds/Allgy Home Medications Ambulatory Orders Medication Instructions Recorded Confirmed digoxin 250 mcg (0.25 mg) tablet 250 mg PO DAILY 05/21/22 05/21/22 (Lanoxin) metoprolol succinate 25 mg 25 mg PO BID 05/21/22 05/21/22 tablet,extended release 24 hr cholecalciferol (vitamin D3) 50 50 mcg PO QDAY 05/14/24 05/14/24 mcg (2,000 unit) capsule flecainide 100 mg tablet 100 mg PO BID 05/14/24 05/14/24 lactobacillus combo no.11 15 1 cap PO QDAY 05/14/24 05/14/24 billion cell sprinkle capsule (Probiotic) losartan 50 mg tablet 50 mg PO BID 05/14/24 05/14/24 magnesium oxide 500 mg PO QDAY 05/14/24 05/14/24 melatonin 10 mg capsule 10 mg PO HS PRN 05/14/24 05/14/24 dabigatran etexilate 150 mg capsule 150 mg PO BID #180 caps 07/03/24 Allergies Allergies Allergy/AdvReac Type Severity Reaction Status Date / Time amlodipine (From [facility]) Allergy Unknown Verified 11/09/24 10:28 PFSH Active Problems All Active Problems (Updated 11/09/24 @ 15:26 by Taina Zelaya PA-C) Acute cholecystitis (Acute) Nausea & vomiting (Acute) Acute hyponatremia (Acute) Goiter diffuse, nontoxic (Acute) Atrial fibrillation (Acute) Hypertension (Acute) Osteopenia after menopause (Acute) Toe pain, right (Acute) Family History Family History (Updated 05/14/24 @ 10:46 by Anna Tripp LPN) Mother Heart attack CVA (cerebral vascular accident) Father Asthma Brother Enlarged heart Mental disorder Daughter Breast cancer Autoimmune disease Son Mental disorder Aunt Diabetes Cousin Diabetes Leukemia Social History Social History (Updated 05/14/24 @ 10:51 by Anna Tripp LPN) Smoking Status: Never smoker Second hand tobacco smoke exposure: Yes Do you dip or chew tobacco?: No Do you vape?: No Patient requests smoking cessation consult: No Initiate information on smoking cessation: No Living arrangement: At home Marital Status: Living Condition: With spouse/s.o. 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 Known occupational exposures/hazards (Current/Previous): None known Service: No Are you following a diet prescribed by a doctor: No Are you following a special diet: Yes Special Diet Details: Axel POL Patient has POLST: Yes POLST Status: DNR Review of Systems Status of ROS: 10 or more systems reviewed and unremarkable except as noted in history and below Exam Exam Vital Signs: Vital Signs x48h Temp Pulse Resp BP BP Pulse Ox 11/09/24 16:33 36.8 C 18 180/75 H 95 11/09/24 16:14 58 L 18 193/66 H 94 11/09/24 12:34 57 L 18 197/64 H 97 11/09/24 10:23 36.3 C L 60 20 196/60 H 94 elderly woman lying in bed, NAD, sclera anicteric, MMM, possibly rubbery enlarged thyroid bilaterally LCTAB, nonlabored RRR, S1S2, no edema abd soft, NT, ND BS+, no HSM AAOx3, CN 2-12 intact, strength 5/5 UE and LE bilat, sensation intact no rash Conclusion/Plan Problem List (1) Acute cholecystitis: Plan: 1. acute cholecystitis: imaging reviewed. LFTs and bili wnl. Gallstones on imaging but no signs of duct obstruction. elevated wbc, afebrile, nontoxic. ED reported RUQ and epigstric tenderness and pt is nontender now after analgesics. Surgery was notified by ED. PUD is also in ddx, but imaging point to cholecystitis. - CTX, flagyl - f/u blood cx - diladid prn, analgesics prn - NPO - po ppi daily 2. severe hyponatremia: suspect hypovolemic based on history (n/v/poor po intake). Yet UrNa is not low as would be expected. Pt is euvolemic now after iv bolus in ED. Other possibly cause is SIADH from pain. - LR 125 ml/hr - repeat BMP tonight at 10 pm. Goal to raise Na by not more than 8 mmol/L per 24 hrs. If Na < 121 at 10 pm, continue LR. If Na 121-124 would switch to 1/2 NS at 75 ml/hr. If Na > 124 would switch to D5W and repeat BMP in 4 hrs. 3. HTN urgency: BP 196/60-> 180/75. Reports she took losartan and metoprolol this am. Pain contributing. - po hydralazine 25 mg x 1 now - verify home meds 4. persistent afib: - cont home digoxin, metoprolol - hold dabigatran for now in case procedure is needed - verify if pt is still taking flecanide dvt ppx: heparin Dispo plan and GOC: Came from home with . Updated at bedside. Pt verified Code status DNR/DNI. Lab Results Lab results reviewed: Yes 11/09/24 10:44 11/09/24 10:44
[2024-11-09] MEDS: metroNIDAZOLE 500 MG/100 ML 500 MG/100 ML BAG IV SCH (18:35)
[2024-11-09] MEDS: cefTRIAXone 2 GM in SODIUM CHLORIDE 0.9% MINIBAG 100 ML IV SCH ×2 (18:36→19:09)
[2024-11-09] MEDS: PANTOPRAZOLE 40 MG TABLET PO SCH (19:06)
[2024-11-09] MEDS: hydrALAZINE 25 MG TABLET PO ONE (19:07)
[2024-11-09] MEDS: DEXTROSE 5%-LACTATED RINGERS 1,000 ML IV SCH (19:08)
[2024-11-09] MEDS: DEXTROSE 5%-0.9% NACL 1,000 ML IV SCH (19:44)
[2024-11-09] MEDS: MELATONIN 3 MG TABLET PO SCH (20:32)
[2024-11-09] MEDS ORDERED: LOSARTAN 50 MG TABLET PO SCH (21:00)
[2024-11-09] MEDS ORDERED: FLECAINIDE 50 MG TABLET PO SCH (21:00)
[2024-11-09] MEDS ORDERED: METOPROLOL SUCCINATE 25 MG TABLET PO SCH (21:00)
[2024-11-09 22:00] LABS: CALCIUM 8.2 mg/dL (8.5-10.3); CREATININE 0.5 mg/dL (0.6-1.3); POTASSIUM 3.9 mmol/L (3.5-4.5)
[2024-11-10] MEDS: hydrALAZINE INJ 20 MG/ML VIAL IVP ONE (01:58)
[2024-11-10 06:27] LABS: ALBUMIN 3.3 g/dL (3.2-5.5); ALBUMIN/GLOBULIN RATIO 1.1 (1.0-2.2); BILIRUBIN,TOTAL 0.8 mg/dL (0.2-1.0); CALCIUM 8.1 mg/dL (8.5-10.3); CREATININE 0.5 mg/dL (0.6-1.3); POTASSIUM 3.7 mmol/L (3.5-4.5); TOTAL PROTEIN 6.2 g/dL (6.4-8.9)
[2024-11-10] MEDS: cefTRIAXone 2 GM in SODIUM CHLORIDE 0.9% MINIBAG 100 ML IV SCH (08:16)
[2024-11-10] MEDS: DIGOXIN 125 MCG TABLET PO SCH (08:16)
[2024-11-10] MEDS: METOPROLOL SUCCINATE 25 MG TABLET PO SCH ×2 (08:17→20:57)
[2024-11-10] MEDS: MAGNESIUM OXIDE 400 MG TABLET PO SCH (08:17)
[2024-11-10] MEDS: LOSARTAN 50 MG TABLET PO SCH ×2 (08:17→20:57)
[2024-11-10] MEDS: HEPARIN 5,000 UNIT/ML VIAL SUBQ SCH (08:17)
--- NOTE | 2024-11-10 11:16 | PHARMACY PROGRESS NOTE ---
Best Possible Medication History Admit Date and Time: 11/09/24 1536 Home Medications Medication Instructions Recorded Confirmed Type digoxin 250 mcg (0.25 mg) tablet 250 mg PO DAILY 05/21/22 11/10/24 History (Lanoxin) metoprolol succinate 25 mg 25 mg PO BID 05/21/22 11/10/24 History tablet,extended release 24 hr cholecalciferol (vitamin D3) 50 50 mcg PO QDAY 05/14/24 11/10/24 History mcg (2,000 unit) capsule flecainide 100 mg tablet 100 mg PO BID 05/14/24 11/10/24 History losartan 50 mg tablet 50 mg PO BID 05/14/24 11/10/24 History magnesium oxide 500 mg PO QDAY 05/14/24 11/10/24 History melatonin 10 mg capsule 10 mg PO HS PRN sleep 05/14/24 11/10/24 History dabigatran etexilate 150 mg capsule 150 mg PO BID #180 caps 07/03/24 11/10/24 Rx Processed by: Pharmacy Medications reviewed in ED?: No Medication History completed: Yes Patient Interview: Completed Secondary Source(s): Insurance records [facility] Statement: Per pharmacist interview with patient who was partially able to participate. [employer] insurance records were reviewed. As the person ultimately responsible for medication therapy, providers are able to order a medication from an existing home medication list in [facility] via the "Reconcile Routine" prior to Confirmation of that medication by child support investigator. Such practice is discouraged except when the physician, in their clinical judgment, deems that a medical need exists for a medication without regard to previous use.
[2024-11-10] MEDS: FLECAINIDE 50 MG TABLET PO SCH (12:03)
--- NOTE | 2024-11-10 19:38 | PROVIDER PROGRESS NOTE ---
Subjective Prog Note Date Prog Note Date: 11/10/24 Prog Note Time: 15:00 Subjective Pt reports feeling: Improved Subjective: No abd pain today. No BM. Nauseous today, no vomiting. Does not feel like eating. Current Medications Current Medications Current Medications: Current Medications Generic Name Dose Route Start Last Admin Trade Name Freq PRN Reason Stop Dose Admin Apixaban 5 mg 11/10/24 21:00 Apixaban 5 Mg Tablet PO BID ANTHONY Protocol Digoxin 250 mcg 11/10/24 09:00 11/10/24 08:16 Digoxin 125 Mcg Tablet PO 250 mcg DAILY ANTHONY Administration Flecainide Acetate 100 mg 11/10/24 12:00 11/10/24 12:03 Flecainide 50 Mg Tablet PO 100 mg BID ANTHONY Administration Hydromorphone HCl 0.5 mg 11/09/24 16:31 11/10/24 11:12 Hydromorphone 0.5 Mg/0.5 Ml Syringe IVP 0.5 mg Q2H PRN Administration Pain 8 to 10 Metronidazole 500 mg in 100 mls @ 100 mls/hr 11/09/24 18:00 11/10/24 18:57 Flagyl 500 Mg/100 Ml IV Infused Q8H ANTHONY Infusion Dextrose/Sodium Chloride 1,000 mls @ 100 mls/hr 11/09/24 19:00 11/10/24 15:50 D5ns IV 100 mls/hr .Q10H ANTHONY Administration Ceftriaxone Sodium 2 gm/ 100 mls @ 200 mls/hr 11/10/24 09:00 11/10/24 09:20 Sodium Chloride IV Infused Q24H ANTHONY Infusion Losartan Potassium 50 mg 11/10/24 21:00 Losartan 50 Mg Tablet PO BID ANTHONY Magnesium Oxide 400 mg 11/10/24 08:00 11/10/24 08:17 Magnesium Oxide 400 Mg Tablet PO 400 mg DAILYWM ANTHONY Administration Melatonin 9 mg 11/09/24 21:00 11/09/24 20:32 Melatonin 3 Mg Tablet PO 9 mg QPM ANTHONY Administration Metoprolol Succinate 25 mg 11/10/24 21:00 Metoprolol Succinate 25 Mg Tablet PO BID ANTHONY Ondansetron HCl 4 mg 11/09/24 16:31 11/10/24 15:47 Ondansetron 4 Mg/2 Ml Vial IVP 4 mg Q6HR PRN Administration Nausea / Vomiting Pantoprazole Sodium 40 mg 11/09/24 19:00 11/10/24 05:02 Pantoprazole 40 Mg Tablet PO 40 mg QDAC ANTHONY Administration Sodium Chloride 10 ml 11/09/24 16:31 Sodium Chloride Flush 0.9% 10 Ml Syringe IVP PRN PRN NEEDED PER PROVIDER ORDERS Sodium Chloride 10 ml 11/09/24 17:00 11/10/24 16:49 Sodium Chloride Flush 0.9% 10 Ml Syringe IVP Not Given 0100,0900,1700 ANTHONY Objective Vital Signs/Intake & Output Reviewed Vital Signs: Yes Vital Signs: Vital Signs x48h Temp Pulse Resp BP Pulse Ox 11/10/24 15:53 36.7 C 71 16 140/59 H 94 Intake & Output: Intake & Output 11/07/24 11/08/24 11/09/24 11/10/24 23:59 23:59 23:59 23:59 Intake Total 1300 / 1300 2337 / 2337 Output Total 300 / 300 950 / 950 Balance 1000 / 1000 1387 / 1387 Weight (kg) 75 kg Objective Comments/Other: elderly woman lying in bed, NAD, sclera anicteric, MMM, LCTAB, nonlabored RRR, S1S2, no edema abd soft, NT, ND BS+, no HSM AAOx3, CN 2-12 intact, strength 5/5 UE and LE bilat, sensation intact no rash Lab Results 11/09/24 10:44 11/10/24 05:35 Other Labs: Lab Results x24hrs 11/10/24 11/09/24 Range/Units 05:35 21:36 Sodium 119 L* 118 L* (135-145) mmol/L Potassium 3.7 3.9 (3.5-4.5) mmol/L Chloride 89 L 89 L (101-111) mmol/L Carbon Dioxide 25 25 (21-32) mmol/L Anion Gap 5.0 L 4.0 L (6-13) BUN 9 7 (6-20) mg/dL Creatinine 0.5 L 0.5 L (0.6-1.3) mg/dL Estimated GFR (MDRD) 119 119 (>89) Glucose 175 H 178 H (74-104) mg/dL Calcium 8.1 L 8.2 L (8.5-10.3) mg/dL Total Bilirubin 0.8 (0.2-1.0) mg/dL AST 17 (10-42) IU/L ALT 18 (10-60) IU/L Alkaline Phosphatase 72 (42-121) IU/L Total Protein 6.2 L (6.4-8.9) g/dL Albumin 3.3 (3.2-5.5) g/dL Globulin 2.9 (2.1-4.2) g/dL Albumin/Globulin Ratio 1.1 (1.0-2.2) Assessment/Plan Problem List (1) Acute cholecystitis: Impression: 79 yo F with pmhx of afib on dabigatran, asthma, HTN, PUD (35 yrs ago) presenting with upper abdominal pain, n/v x 3 days. 1. acute cholecystitis: imaging reviewed. LFTs and bili wnl. Gallstones on imaging but no signs of duct obstruction. ED reported RUQ and epigstric tenderness. Nontoxic, afebrile. Persistent nausea. Per Surgery and anesthesia, hyponatremia makes surgical intervention high risk. Will have outpt surgery f/u for cholecystectomy. - CTX, flagyl - f/u blood cx - diladid prn, analgesics prn, antiemetics - NPO - po ppi daily 2. severe hyponatremia: Na 117 on arrival. suspect hypovolemic based on history (n/v/poor po intake). Yet UrNa is not low as would be expected. Other possibly cause is SIADH from pain. Na trending up gradually, 119 today. - LR 125 ml/hr - repeat BMP in am 3. HTN urgency: BP 196/60 on arrival. Now normalized. - cont home losartan, metoprolol 4. persistent afib: - cont home digoxin, metoprolol, flecainide - resume home dabigatran, as no plan for surgical intervention dvt ppx: DOAC Dispo plan and GOC: Came from home with . Pending improvement in nausea and po intake.
[2024-11-10] MEDS: APIXABAN 5 MG TABLET PO SCH (20:57)
[2024-11-10] MEDS: ACETAMINOPHEN 325 MG TABLET PO PRN (21:17)
[2024-11-11] MEDS: traZODone 50 MG TABLET PO ONE (01:18)
[2024-11-11 05:21] LABS: BASOPHILS % (AUTO) 0.2 %; EOSINOPHILS % (AUTO) 1.1 %; HCT - HEMATOCRIT 38.6 % (37.0-47.0); HGB - HEMOGLOBIN 13.2 g/dL (12.0-16.0); LYMPHOCYTES % (AUTO) 3.7 %; MEAN CORPUSCULAR HEMOGLOBIN 31.3 pg (27.0-31.0); MEAN CORPUSCULAR HGB CONC 34.2 g/dL (32.0-36.0); MEAN CORPUSCULAR VOLUME 91.5 fL (81.0-99.0); MEAN PLATELET VOLUME 11.9 fL (7.9-10.8); MONOCYTES % (AUTO) 9.6 %; NEUTROPHILS % (AUTO) 84.6 %; PLT - PLATELET COUNT 205 10^3/uL (130-450); RED BLOOD COUNT 4.22 10^6/uL (4.20-5.40); RED CELL DISTRIBUTION WIDTH 11.7 % (12.0-15.0); WHITE BLOOD COUNT 25.6 x10^3/uL (4.8-10.8)
[2024-11-11 05:32] LABS: ABNORMAL LYMPHS % (MANUAL) 0 %; BAND NEUTROPHILS % (MANUAL) 0 %
[2024-11-11 05:39] LABS: ALBUMIN 2.8 g/dL (3.2-5.5); BILIRUBIN,TOTAL 0.9 mg/dL (0.2-1.0); CALCIUM 8.1 mg/dL (8.5-10.3); CREATININE 0.6 mg/dL (0.6-1.3); POTASSIUM 4.1 mmol/L (3.5-4.5); TOTAL PROTEIN 5.6 g/dL (6.4-8.9)
[2024-11-11 05:47] LABS: LYMPHOCYTES # (MANUAL) 1.3 10^3/uL (1.5-3.5); LYMPHOCYTES % (MANUAL) 5 %; MONOCYTES # (MANUAL) 3.3 10^3/uL (0.0-1.0); PLATELET MORPHOLOGY NORMAL APPEARANCE (NORMAL); RBC MORPHOLOGY (MULTIPLE) NORMAL APPEARANCE (NORMAL)
[2024-11-11 05:48] LABS: DIFFERENTIAL COMMENT MANUAL DIFFERENTIAL; PLATELET ESTIMATE, MANUAL NORMAL (130-450,000) (NORMAL); WBC MORPHOLOGY (MULTIPLE) NORMAL APPEARANCE (NORMAL)
[2024-11-11 05:50] LABS: THYROID STIMULATING HORMONE 0.22 uIU/mL (0.34-5.60)
[2024-11-11] MEDS ORDERED: traZODone 50 MG TABLET PO PRN (07:31)
[2024-11-11] MEDS: PIPERACILLIN/TAZOBACTAM 3.375 GM in SODIUM CHLORIDE 0.9% MINIBAG 100 ML IV SCH (07:39)
[2024-11-11] MEDS: LACTATED RINGERS 500 ML IV ONE (07:51)
--- NOTE | 2024-11-11 16:06 | PROVIDER PROGRESS NOTE ---
Subjective Prog Note Date Prog Note Date: 11/11/24 Prog Note Time: 16:00 Subjective Pt reports feeling: Worse Subjective: Mild RUQ pain, no n/v. No diarrhea, no BM x approx 3 days. Passing flatus. Mild SOB, occasional cough. Wants to have clear liquids. Current Medications Current Medications Current Medications: Current Medications Generic Name Dose Route Start Last Admin Trade Name Freq PRN Reason Stop Dose Admin Acetaminophen 650 mg 11/10/24 21:05 11/10/24 21:17 Acetaminophen 325 Mg Tablet PO 650 mg Q4HR PRN Administration Pain or Fever > 38C (100.4F) Digoxin 250 mcg 11/10/24 09:00 11/11/24 08:24 Digoxin 125 Mcg Tablet PO 250 mcg DAILY ANTHONY Administration Flecainide Acetate 100 mg 11/10/24 12:00 11/11/24 09:52 Flecainide 50 Mg Tablet PO 100 mg BID ANTHONY Administration Heparin Sodium (Porcine) 5,000 unit 11/11/24 21:00 Heparin 5,000 Unit/Ml Vial SUBQ BID ANTHONY Hydromorphone HCl 0.5 mg 11/09/24 16:31 11/10/24 11:12 Hydromorphone 0.5 Mg/0.5 Ml Syringe IVP 0.5 mg Q2H PRN Administration Pain 8 to 10 Dextrose/Sodium Chloride 1,000 mls @ 125 mls/hr 11/09/24 19:00 11/11/24 10:58 D5ns IV 125 mls/hr .Q8H ANTHONY Administration Piperacillin Sod/Tazobactam 100 mls @ 25 mls/hr 11/11/24 08:00 11/11/24 12:12 Sod 3.375 gm/ Sodium Chloride IV Infused Q8H ANTHONY Infusion Protocol Losartan Potassium 50 mg 11/10/24 21:00 11/11/24 08:24 Losartan 50 Mg Tablet PO 50 mg BID ANTHONY Administration Magnesium Oxide 400 mg 11/10/24 08:00 11/11/24 07:40 Magnesium Oxide 400 Mg Tablet PO 400 mg DAILYWM ANTHONY Administration Melatonin 9 mg 11/09/24 21:00 11/10/24 20:57 Melatonin 3 Mg Tablet PO 9 mg QPM ANTHONY Administration Metoprolol Succinate 25 mg 11/10/24 21:00 11/11/24 08:25 Metoprolol Succinate 25 Mg Tablet PO 25 mg BID ANTHONY Administration Ondansetron HCl 4 mg 11/09/24 16:31 11/10/24 15:47 Ondansetron 4 Mg/2 Ml Vial IVP 4 mg Q6HR PRN Administration Nausea / Vomiting Pantoprazole Sodium 40 mg 11/09/24 19:00 11/11/24 06:07 Pantoprazole 40 Mg Tablet PO 40 mg QDAC ANTHONY Administration Sodium Chloride 10 ml 11/09/24 16:31 Sodium Chloride Flush 0.9% 10 Ml Syringe IVP PRN PRN NEEDED PER PROVIDER ORDERS Sodium Chloride 10 ml 11/09/24 17:00 11/11/24 08:25 Sodium Chloride Flush 0.9% 10 Ml Syringe IVP Not Given 0100,0900,1700 [facility] Objective Vital Signs/Intake & Output Reviewed Vital Signs: Yes Intake & Output: Intake & Output 11/08/24 11/09/24 11/10/24 11/11/24 23:59 23:59 23:59 23:59 Intake Total 1300 / 1300 2337 / 2337 2973 / 2973 Output Total 300 / 300 950 / 950 700 / 700 Balance 1000 / 1000 1387 / 1387 2273 / 2273 Weight (kg) 75 kg Objective Comments/Other: elderly woman lying in bed, NAD, sclera anicteric, MMM, LCTAB, nonlabored RRR, S1S2, no edema abd soft, mild RUQ tenderness to deep palpation, no guarding, ND BS+ Alert, Lab Results 11/11/24 04:52 11/11/24 04:52 Other Labs: Lab Results x24hrs 11/11/24 Range/Units 04:52 WBC 25.6 H (4.8-10.8) x10^3/uL RBC 4.22 (4.20-5.40) 10^6/uL Hgb 13.2 (12.0-16.0) g/dL Hct 38.6 (37.0-47.0) % MCV 91.5 (81.0-99.0) fL MCH 31.3 H (27.0-31.0) pg MCHC 34.2 (32.0-36.0) g/dL RDW 11.7 L (12.0-15.0) % Plt Count 205 (130-450) 10^3/uL MPV 11.9 H (7.9-10.8) fL Neut # (Auto) Not Reportable Lymph # (Auto) Not Reportable Ramsey # (Auto) Not Reportable Eos # (Auto) Not Reportable Baso # (Auto) Not Reportable Absolute Nucleated RBC Not Reportable Total Counted 100 Band Neuts % (Manual) 0 (0 - 10) % Abnorm Lymph % (Manual) 0 % Nucleated RBC % Not Reportable Neutrophils # (Manual) 21.0 H (1.5-6.6) 10^3/uL Lymphocytes # (Manual) 1.3 L (1.5-3.5) 10^3/uL Monocytes # (Manual) 3.3 H (0.0-1.0) 10^3/uL Eosinophils # (Manual) 0.0 (0-0.7) 10^3/uL Basophils # (Manual) 0.0 (0-0.1) 10^3/uL Differential Comment MANUAL DIFFERENTIAL WBC Morphology NORMAL APPEARANCE (NORMAL) Platelet Estimate NORMAL (130-450,000) (NORMAL) Platelet Morphology NORMAL APPEARANCE (NORMAL) RBC Morph Micro Appear NORMAL APPEARANCE (NORMAL) Sodium 123 L (135-145) mmol/L Potassium 4.1 (3.5-4.5) mmol/L Chloride 95 L (101-111) mmol/L Carbon Dioxide 24 (21-32) mmol/L Anion Gap 4.0 L (6-13) BUN 17 (6-20) mg/dL Creatinine 0.6 (0.6-1.3) mg/dL Estimated GFR (MDRD) 97 (>89) Glucose 155 H (74-104) mg/dL Calcium 8.1 L (8.5-10.3) mg/dL Total Bilirubin 0.9 (0.2-1.0) mg/dL AST 13 (10-42) IU/L ALT 13 (10-60) IU/L Alkaline Phosphatase 79 (42-121) IU/L Total Protein 5.6 L (6.4-8.9) g/dL Albumin 2.8 L (3.2-5.5) g/dL Globulin 2.8 (2.1-4.2) g/dL Albumin/Globulin Ratio 1.0 (1.0-2.2) TSH 0.22 L (0.34-5.60) uIU/mL Free T4 Direct 1.12 (0.58-1.64) ng/dL Assessment/Plan Problem List (1) Acute cholecystitis: Impression: 79 yo F with pmhx of afib on dabigatran, asthma, HTN, PUD (35 yrs ago) presenting with upper abdominal pain, n/v x 3 days. 1. acute cholecystitis: Gallstones on imaging but no signs of duct obstruction. Per Surgery and anesthesia, hyponatremia makes surgical intervention high risk. Rising Wbc count today, afebrile, minimal abdominal tenderness, nontoxic appearing. LFTs remain wnl. - broaden abx to pip-tazo - serial abd exams- if clinical conditions worsens, re-consult surgery, consider repeat CT - f/u blood cx - dilaudid prn, analgesics prn, antiemetics - clear liquids - po ppi daily 2. severe hyponatremia: Na 117 on arrival. suspect hypovolemic based on history (n/v/poor po intake). Yet UrNa is not low as would be expected. Other possibly cause is SIADH from pain. Na trending up gradually. - NR 125 ml/hr - repeat BMP in am - monitor for volume overload. Lungs clear. 3. HTN: HTN urgency on arrival, Now normalized. - cont home losartan, metoprolol 4. persistent afib: - cont home digoxin, metoprolol, flecainide - hold dabigatran and give ppx heparin in case procedure is required dvt ppx: SQH Dispo plan and GOC: Came from home with . Pending improvement in nausea and po intake.
[2024-11-11] MEDS: HEPARIN 5,000 UNIT/ML VIAL SUBQ SCH (21:21)
[2024-11-12 05:29] LABS: BASOPHILS % (AUTO) 0.1 %; EOSINOPHILS % (AUTO) 0.1 %; HCT - HEMATOCRIT 34.5 % (37.0-47.0); HGB - HEMOGLOBIN 11.6 g/dL (12.0-16.0); LYMPHOCYTES % (AUTO) 8.2 %; MEAN CORPUSCULAR HEMOGLOBIN 31.3 pg (27.0-31.0); MEAN CORPUSCULAR HGB CONC 33.6 g/dL (32.0-36.0); MEAN PLATELET VOLUME 11.9 fL (7.9-10.8); MONOCYTES % (AUTO) 9.7 %; NEUTROPHILS % (AUTO) 81.3 %; PLT - PLATELET COUNT 228 10^3/uL (130-450); RED BLOOD COUNT 3.71 10^6/uL (4.20-5.40); RED CELL DISTRIBUTION WIDTH 11.8 % (12.0-15.0); WHITE BLOOD COUNT 18.5 x10^3/uL (4.8-10.8)
[2024-11-12 05:44] LABS: ABNORMAL LYMPHS % (MANUAL) 0 %; BAND NEUTROPHILS % (MANUAL) 0 %
[2024-11-12 06:00] LABS: LYMPHOCYTES # (MANUAL) 1.9 10^3/uL (1.5-3.5); LYMPHOCYTES % (MANUAL) 10 %; MONOCYTES # (MANUAL) 2.2 10^3/uL (0.0-1.0); NEUTROPHILS # (MANUAL) 14.4 10^3/uL (1.5-6.6)
[2024-11-12 06:01] LABS: PLATELET MORPHOLOGY NORMAL APPEARANCE (NORMAL); RBC MORPHOLOGY (MULTIPLE) NORMAL APPEARANCE (NORMAL)
[2024-11-12 06:02] LABS: ALBUMIN 2.5 g/dL (3.2-5.5); BILIRUBIN,TOTAL 0.6 mg/dL (0.2-1.0); CALCIUM 7.7 mg/dL (8.5-10.3); CREATININE 0.6 mg/dL (0.6-1.3); DIFFERENTIAL COMMENT MANUAL DIFFERENTIAL; PLATELET ESTIMATE, MANUAL NORMAL (130-450,000) (NORMAL); WBC MORPHOLOGY (MULTIPLE) NORMAL APPEARANCE (NORMAL)
[2024-11-12] MEDS ORDERED: iohexoL-300 100 ML VIAL ONE (10:20)
--- NOTE | 2024-11-12 11:18 | CT Report ---
PROCEDURE: CT Head W/O Stroke Protocol INDICATIONS: Right leg weakness TECHNIQUE: Noncontrast 4.5 mm thick angled axial sections acquired from the foramen magnum to the vertex, with c oronal reformats. For radiation dose reduction, the following was used: automated exposure control, adjustment of mA and/or kV according to patient size. COMPARISON: None. FINDINGS: Image quality: Excellent. CSF spaces: Basal cisterns are patent. No extra-axial fluid collections. Ventricles are normal in size and shape. Brain: No midline shift. No intracranial mass effect or hemorrhage. Bourgeois-white matter interface is normal. Intracranial carotid calcifications. Age-related volume loss and small vessel ischemic strick[place] ge. Skull and face: Calvarium and visualized facial bones are intact, without suspicious lesions. Sinuses: Visualized sinuses and mastoids are clear. IMPRESSION: No acute intracranial pathology Attempts are made to notify the ordering physician at the time of the dictation on 11/12/2024 at 1116 hours. These were unsuccessful. Symptoms have been present since last night. The upholstery tech has been giv en instructions to notify the ordering physician, and we'll do so promptly. This study fulfills neurological imaging criteria for inclusion or exclusion of acute stroke therapie s based on available published neurological imaging guidelines. Reviewed by: Vinnie Singh MD on 11/12/2024 11:17 AM PDT Approved by: Vinnie Singh MD on 11/12/2024 11:17 AM PDT Station ID: [id number]
--- NOTE | 2024-11-12 11:44 | CT Report ---
PROCEDURE: CT Angio Head/Neck INDICATIONS: Lower extremity weakness today TECHNIQUE: After the administration of intravenous contrast, 1 mm thick sections acquired from the aortic arch t hrough the [place] of [place]. 3-dimensional btcvvfk-txmyyhyib-ycklpuvtqe (MIP) and/or volume renderin g reformats were acquired of the central intracranial vasculature and neck separately. For radiation dose reduction, the following was used: automated exposure control, adjustment of mA and/or kV acco rding to patient size. CONTRAST: omni 300, 100 COMPARISON: CT head from today, thyroid ultrasound dated 05/28/2024. FINDINGS: Image quality: Diagnostic. HEAD CT: CSF Spaces: Basal cisterns are patent. No extra-axial fluid collections. Ventricles are normal in size and shape. Brain: No significant abnormality is seen for scanning technique. Skull and face: Calvarium and visualized facial bones appear intact, without suspicious lesions. Sinuses: Visualized sinuses and mastoids are clear. HEAD CT ANGIOGRAPHY: Anterior circulation: Intracranial internal carotid arteries are normal in size and flow. The flow within the paired anterior cerebral arteries is normal and symmetric. The flow within the middle cer ebral arteries is normal and symmetric. The anterior communicating artery is seen. No aneurysms are seen. Posterior circulation: Visualized portions of the vertebral arteries demonstrate normal caliber, and join to form a normal appearing basilar artery. Flow within the posterior cerebral arteries is norm al and symmetric. No aneurysms are seen. NECK CT ANGIOGRAPHY: Carotid system: The great vessels demonstrate a conventional anatomy as they arise from the aortic a rch. The origins of the common carotid arteries appear patent. The common carotid arteries demonstr ate normal caliber and courses. The bifurcation regions are both widely patent. The internal caroti d arteries demonstrate normal calibers and courses. Posterior circulation: The origins of the vertebral arteries both appear widely patent. The more jean perior extracranial portions of both vertebral arteries also demonstrate normal courses and calibers. They join to form a normal appearing basilar artery. Soft tissues: Visualized neck soft tissues demonstrate no suspicious abnormalities. There is a know n right thyroid nodule which measures at least 7.7 cm in length and 5.1 cm in transverse dimension. M ild to moderate right pleural effusion and mild left pleural effusion. Bones: No suspicious bony lesions. Visualized cervical spine appears normally aligned. IMPRESSION: No significant intracranial arterial abnormality is seen. No significant abnormality is seen within the arteries of the neck. Known very large right thyroid nodule. Mild to moderate right pleural effusion and mild left pleural effusion. The estimate of stenosis included in the report of the imaging study was calculated using the NASCET method Reviewed by: Vinnie Singh MD on 11/12/2024 11:43 AM PDT Approved by: Vinnie Singh MD on 11/12/2024 11:43 AM PDT Station ID: [id number]
[2024-11-12] MEDS: polyethylene glycoL 3350 17 GM PACKET PO SCH (12:10)
--- NOTE | 2024-11-12 15:30 | OT Plan of Care ---
OT Plan of Care OT Plan of Care: Diagnosis Diagnosis acute cholecystitis Chief Complaint N/V x3 days, weakness Assessment Assessment 79 yo F with pmhx of afib on dabigatran, asthma, HTN, PUD (35 yrs ago) presenting with upper abdominal pain, n/v x [address] abdomen shows non obstructive gallstones. Adm for surgical consult Conservative tx with antibiotics. Per family pt with AMS/Speech slurring/R LE weakness morning of 11/[address] negative. MRI pending . Cleared for therapy evaluation. Met supine in bed, A&Ox4, follows 100% commands. Pt reporting mild diplopia and DAVILA No acute neurological deficits noted in vision, sensation, strength, or coordination. Slurred and breathless speech noted Rec VEGETABLE [employer]ER evaluation. RN and Team updated/ aware. Pt performed supine to sit, sit to stand, and SPT bed to chair MOD A using RW Currently MOD A ADLs with full set up and increased time for fatigue. Overall presents with decreased endurance, activity tolerance and ADL status. Will benefit from cont OT services during acute stay. D/c rec pending CVA work up and medical progress. Cont to assess. Goals - Activities of Daily Living Improve Upper Extremity Independent Dressing to: Improve Lower Extremity Independent Dressing to: Improve Grooming/Hygiene to: Independent Improve Bathing to: Independent Improve Toileting to: Independent Plan Treatment Frequency 1x/day Duration Until discharge -Discharge Recommendations Comment D/c rec pending CVA work up
--- NOTE | 2024-11-12 16:51 | PT Plan of Care ---
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 She has a known large mass on her R thyroid, please see chart for complete medical hx. The pt was received sleeping comfortably supine in bed and presented today with decreased R LE strength that was more profound when supine vs sitting, decreased activity tolerance, and impaired standing balance which limited her tolerance with functional mobility. There were no apparent coordination or sensory deficits in any extremity. She and her family noted a change in her speech, saying that this seemed to take more energy to perform than it did prior to this admit. There were no facial asymmetries noted this session and no deviation when sticking her tongue out. She stated that she has been experiencing more blurred vision and denied any diplopia. Her overall tolerance throughout this assessment was limited by weakness and fatigue. OT was present and assisting throughout due to the pt's functional limitations. At this time recommend continued skilled PT intervention while in the acute setting and DC rec is pending imaging for CVA, will update as pt progresses. At the end of the session the pt was sitting up in a chair with call light in reach, chair alarm in place and on, and all needs met while visiting with her son and . RN and PA updated on pt's status and DC rec. PATIENT/FAMILY GOALS Patient/Family Goals: To be able to go back home GOALS Improve supine to sit to:: Modified Independent Improve sit to stand to:: Standby Assist Improve pivot transfer ability to:: Standby Assist Improve sit to supine to:: Modified Independent Other transfer goal:: STS with FWW Improve gait ability to:: SBA Advance Assistive Device to:: Front Wheeled Walker Increase distance walked to (in feet):: 50 Improve Sitting Balance to:: Good PLAN Frequency: 1-2x/day Duration: Until discharge DISCHARGE RECOMMENDATIONS Other: DC rec is pending imaging for CVA, will update as pt progresses
--- NOTE | 2024-11-12 17:13 | PROVIDER PROGRESS NOTE ---
Current Medications Current Medications Current Medications: Current Medications Generic Name Dose Route Start Last Admin Trade Name Freq PRN Reason Stop Dose Admin Acetaminophen 650 mg 11/10/24 21:05 11/10/24 21:17 Acetaminophen 325 Mg Tablet PO 650 mg Q4HR PRN Administration Pain or Fever > 38C (100.4F) Digoxin 250 mcg 11/10/24 09:00 11/11/24 08:24 Digoxin 125 Mcg Tablet PO 250 mcg DAILY ANTHONY Administration Flecainide Acetate 100 mg 11/10/24 12:00 11/11/24 09:52 Flecainide 50 Mg Tablet PO 100 mg BID ANTHONY Administration Heparin Sodium (Porcine) 5,000 unit 11/11/24 21:00 Heparin 5,000 Unit/Ml Vial SUBQ BID ANTHONY Hydromorphone HCl 0.5 mg 11/09/24 16:31 11/10/24 11:12 Hydromorphone 0.5 Mg/0.5 Ml Syringe IVP 0.5 mg Q2H PRN Administration Pain 8 to 10 Dextrose/Sodium Chloride 1,000 mls @ 125 mls/hr 11/09/24 19:00 11/11/24 10:58 D5ns IV 125 mls/hr .Q8H ANTHONY Administration Piperacillin Sod/Tazobactam 100 mls @ 25 mls/hr 11/11/24 08:00 11/11/24 12:12 Sod 3.375 gm/ Sodium Chloride IV Infused Q8H ANTHONY Infusion Protocol Losartan Potassium 50 mg 11/10/24 21:00 11/11/24 08:24 Losartan 50 Mg Tablet PO 50 mg BID ANTHONY Administration Magnesium Oxide 400 mg 11/10/24 08:00 11/11/24 07:40 Magnesium Oxide 400 Mg Tablet PO 400 mg DAILYWM ANTHONY Administration Melatonin 9 mg 11/09/24 21:00 11/10/24 20:57 Melatonin 3 Mg Tablet PO 9 mg QPM ANTHONY Administration Metoprolol Succinate 25 mg 11/10/24 21:00 11/11/24 08:25 Metoprolol Succinate 25 Mg Tablet PO 25 mg BID ANTHONY Administration Ondansetron HCl 4 mg 11/09/24 16:31 11/10/24 15:47 Ondansetron 4 Mg/2 Ml Vial IVP 4 mg Q6HR PRN Administration Nausea / Vomiting Pantoprazole Sodium 40 mg 11/09/24 19:00 11/11/24 06:07 Pantoprazole 40 Mg Tablet PO 40 mg QDAC ANTHONY Administration Sodium Chloride 10 ml 11/09/24 16:31 Sodium Chloride Flush 0.9% 10 Ml Syringe IVP PRN PRN NEEDED PER PROVIDER ORDERS Sodium Chloride 10 ml 11/09/24 17:00 11/11/24 08:25 Sodium Chloride Flush 0.9% 10 Ml Syringe IVP Not Given 0100,0900,1700 ANTHONY Objective Vital Signs/Intake & Output Vital Signs: Vital Signs x48h Temp Pulse Resp BP Pulse Ox 11/11/24 16:00 37.0 C 78 18 161/57 H 94 Intake & Output: Intake & Output 11/08/24 11/09/24 11/10/24 11/11/24 23:59 23:59 23:59 23:59 Intake Total 1300 / 1300 2337 / 2337 2973 / 2973 Output Total 300 / 300 950 / 950 700 / 700 Balance 1000 / 1000 1387 / 1387 2273 / 2273 Weight (kg) 75 kg Lab Results 11/12/24 05:00 11/12/24 05:00 Other Labs: Lab Results x24hrs 11/11/24 Range/Units 04:52 WBC 25.6 H (4.8-10.8) x10^3/uL RBC 4.22 (4.20-5.40) 10^6/uL Hgb 13.2 (12.0-16.0) g/dL Hct 38.6 (37.0-47.0) % MCV 91.5 (81.0-99.0) fL MCH 31.3 H (27.0-31.0) pg MCHC 34.2 (32.0-36.0) g/dL RDW 11.7 L (12.0-15.0) % Plt Count 205 (130-450) 10^3/uL MPV 11.9 H (7.9-10.8) fL Neut # (Auto) Not Reportable Lymph # (Auto) Not Reportable [place] # (Auto) Not Reportable Eos # (Auto) Not Reportable Baso # (Auto) Not Reportable Absolute Nucleated RBC Not Reportable Total Counted 100 Band Neuts % (Manual) 0 (0 - 10) % Abnorm Lymph % (Manual) 0 % Nucleated RBC % Not Reportable Neutrophils # (Manual) 21.0 H (1.5-6.6) 10^3/uL Lymphocytes # (Manual) 1.3 L (1.5-3.5) 10^3/uL Monocytes # (Manual) 3.3 H (0.0-1.0) 10^3/uL Eosinophils # (Manual) 0.0 (0-0.7) 10^3/uL Basophils # (Manual) 0.0 (0-0.1) 10^3/uL Differential Comment MANUAL DIFFERENTIAL WBC Morphology NORMAL APPEARANCE (NORMAL) Platelet Estimate NORMAL (130-450,000) (NORMAL) Platelet Morphology NORMAL APPEARANCE (NORMAL) RBC Morph Micro Appear NORMAL APPEARANCE (NORMAL) Sodium 123 L (135-145) mmol/L Potassium 4.1 (3.5-4.5) mmol/L Chloride 95 L (101-111) mmol/L Carbon Dioxide 24 (21-32) mmol/L Anion Gap 4.0 L (6-13) BUN 17 (6-20) mg/dL Creatinine 0.6 (0.6-1.3) mg/dL Estimated GFR (MDRD) 97 (>89) Glucose 155 H (74-104) mg/dL Calcium 8.1 L (8.5-10.3) mg/dL Total Bilirubin 0.9 (0.2-1.0) mg/dL AST 13 (10-42) IU/L ALT 13 (10-60) IU/L Alkaline Phosphatase 79 (42-121) IU/L Total Protein 5.6 L (6.4-8.9) g/dL Albumin 2.8 L (3.2-5.5) g/dL Globulin 2.8 (2.1-4.2) g/dL Albumin/Globulin Ratio 1.0 (1.0-2.2) TSH 0.22 L (0.34-5.60) uIU/mL Free T4 Direct 1.12 (0.58-1.64) ng/dL Assessment/Plan Problem List (1) Acute cholecystitis:
--- NOTE | 2024-11-12 17:17 | PROVIDER PROGRESS NOTE ---
Subjective Prog Note Date Prog Note Date: 11/12/24 Prog Note Time: 17:14 Subjective Subjective: Pt had episode of slurred speech last night. Today she reports weakness in R leg which she states has been present since admission. Occasional SOB, worse lying flat. No abd pain. Tolerating clear diet without problems. No h/o stroke. Current Medications Current Medications Current Medications: Current Medications Generic Name Dose Route Start Last Admin Trade Name Freq PRN Reason Stop Dose Admin Acetaminophen 650 mg 11/10/24 21:05 11/10/24 21:17 Acetaminophen 325 Mg Tablet PO 650 mg Q4HR PRN Administration Pain or Fever > 38C (100.4F) Apixaban 5 mg 11/12/24 21:00 Apixaban 5 Mg Tablet PO BID ANTHONY Digoxin 250 mcg 11/10/24 09:00 11/12/24 08:42 Digoxin 125 Mcg Tablet PO 250 mcg DAILY ANTHONY Administration Flecainide Acetate 100 mg 11/10/24 12:00 11/12/24 09:01 Flecainide 50 Mg Tablet PO 100 mg BID ANTHONY Administration Hydromorphone HCl 0.5 mg 11/09/24 16:31 11/10/24 11:12 Hydromorphone 0.5 Mg/0.5 Ml Syringe IVP 0.5 mg Q2H PRN Administration Pain 8 to 10 Piperacillin Sod/Tazobactam 100 mls @ 25 mls/hr 11/11/24 08:00 11/12/24 16:29 Sod 3.375 gm/ Sodium Chloride IV 25 mls/hr Q8H ANTHONY Administration Protocol Losartan Potassium 50 mg 11/10/24 21:00 11/12/24 08:42 Losartan 50 Mg Tablet PO 50 mg BID ANTHONY Administration Magnesium Oxide 400 mg 11/10/24 08:00 11/12/24 08:41 Magnesium Oxide 400 Mg Tablet PO 400 mg DAILYWM ANTHONY Administration Melatonin 9 mg 11/09/24 21:00 11/11/24 21:20 Melatonin 3 Mg Tablet PO 9 mg QPM ANTHONY Administration Metoprolol Succinate 25 mg 11/10/24 21:00 11/12/24 08:43 Metoprolol Succinate 25 Mg Tablet PO 25 mg BID ANTHONY Administration Ondansetron HCl 4 mg 11/09/24 16:31 11/10/24 15:47 Ondansetron 4 Mg/2 Ml Vial IVP 4 mg Q6HR PRN Administration Nausea / Vomiting Pantoprazole Sodium 40 mg 11/09/24 19:00 11/12/24 05:05 Pantoprazole 40 Mg Tablet PO 40 mg QDAC ANTHONY Administration Polyethylene Glycol 17 gm 11/12/24 12:00 11/12/24 12:10 Polyethylene Glycol 3350 17 Gm Packet PO 17 gm DAILY ANTHONY Administration Sodium Chloride 10 ml 11/09/24 16:31 Sodium Chloride Flush 0.9% 10 Ml Syringe IVP PRN PRN NEEDED PER PROVIDER ORDERS Sodium Chloride 10 ml 11/09/24 17:00 11/12/24 16:29 Sodium Chloride Flush 0.9% 10 Ml Syringe IVP 10 ml 0100,0900,1700 ANTHONY Administration Objective Vital Signs/Intake & Output Reviewed Vital Signs: Yes Vital Signs: Vital Signs x48h Temp Pulse Resp BP Pulse Ox O2 Flow Rate 11/12/24 16:43 157/64 H 11/12/24 16:33 174/69 H 11/12/24 16:29 36.8 C 69 18 174/73 H 99 2 11/12/24 16:15 90 L 2 Intake & Output: Intake & Output 11/09/24 11/10/24 11/11/24 11/12/24 23:59 23:59 23:59 23:59 Intake Total 1300 / 1300 2337 / 2337 4313 / 4313 3040 / 3040 Output Total 300 / 300 950 / 950 1200 / 1200 1050 / 1050 Balance 1000 / 1000 1387 / 1387 3113 / 3113 1989 Weight (kg) 75 kg Objective Comments/Other: elderly woman lying in bed, NAD, sclera anicteric, MMM, goiter R neck, rubbery, mobile, nontender LCTAB, diminished at bases, nonlabored RRR, S1S2, no edema abd soft, NT, ND, BS+ AAOx3, CN 2-12 intact, strength 4/5 R elbow extension, 3/5 RLE hip, knee flex/extension, 5/5 ankle dorsiflexion and plantarflexion. 5/5 on L. normal speech sounds. Lab Results 11/12/24 05:00 11/12/24 05:00 Other Labs: Lab Results x24hrs 04/21/25 04/18/25 04/18/25 Range/Units 05:00 12:35 10:44 WBC 18.5 H (4.8-10.8) x10^3/uL RBC 3.71 L (4.20-5.40) 10^6/uL Hgb 11.6 L (12.0-16.0) g/dL Hct 34.5 L (37.0-47.0) % MCV 93.0 (81.0-99.0) fL MCH 31.3 H (27.0-31.0) pg MCHC 33.6 (32.0-36.0) g/dL RDW 11.8 L (12.0-15.0) % Plt Count 228 (130-450) 10^3/uL MPV 11.9 H (7.9-10.8) fL Neut # (Auto) Not Reportable Lymph # (Auto) Not Reportable [place] # (Auto) Not Reportable Eos # (Auto) Not Reportable Baso # (Auto) Not Reportable Absolute Nucleated RBC Not Reportable Total Counted 100 Band Neuts % (Manual) 0 (0 - 10) % Abnorm Lymph % (Manual) 0 % Nucleated RBC % Not Reportable Neutrophils # (Manual) 14.4 H (1.5-6.6) 10^3/uL Lymphocytes # (Manual) 1.9 (1.5-3.5) 10^3/uL Monocytes # (Manual) 2.2 H (0.0-1.0) 10^3/uL Eosinophils # (Manual) 0.0 (0-0.7) 10^3/uL Basophils # (Manual) 0.0 (0-0.1) 10^3/uL Differential Comment MANUAL DIFFERENTIAL WBC Morphology NORMAL APPEARANCE (NORMAL) Platelet Estimate NORMAL (130-450,000) (NORMAL) Platelet Morphology NORMAL APPEARANCE (NORMAL) RBC Morph Micro Appear NORMAL APPEARANCE (NORMAL) Sodium 127 L (135-145) mmol/L Potassium 4.0 (3.5-4.5) mmol/L Chloride 100 L (101-111) mmol/L Carbon Dioxide 25 (21-32) mmol/L Anion Gap 2.0 L (6-13) BUN 10 (6-20) mg/dL Creatinine 0.6 (0.6-1.3) mg/dL Estimated GFR (MDRD) 97 (>89) Glucose 147 H (74-104) mg/dL Serum Osmolality 253 L (280-301) mOsmol/kg Calcium 7.7 L (8.5-10.3) mg/dL Total Bilirubin 0.6 (0.2-1.0) mg/dL AST 9 L (10-42) IU/L ALT 10 (10-60) IU/L Alkaline Phosphatase 73 (42-121) IU/L Total Protein 5.0 L (6.4-8.9) g/dL Albumin 2.5 L (3.2-5.5) g/dL Globulin 2.5 (2.1-4.2) g/dL Albumin/Globulin Ratio 1.0 (1.0-2.2) Urine Osmolality 453 (.) mOsmol/kg Assessment/Plan Problem List (1) Acute cholecystitis: Impression: 79 yo F with pmhx of afib on dabigatran, asthma, HTN, PUD (35 yrs ago) presenting with upper abdominal pain, n/v x 3 days. 1. acute cholecystitis: Gallstones on imaging but no signs of duct obstruction. Per Surgery and anesthesia, hyponatremia makes surgical intervention high risk. Wbc trending down today, afebrile after switching to pip-tazo. - cont pip-tazo - serial abd exams- if clinical conditions worsens, re-consult surgery, consider repeat CT - f/u blood cx - dilaudid prn, analgesics prn, antiemetics - clear liquids - po ppi daily 2. severe hyponatremia: Na 117 on arrival. suspect hypovolemic based on history (n/v/poor po intake). Yet UrNa is not low as would be expected. Other possibly cause is SIADH from pain. Na trending up gradually. - repeat BMP in am 3. R sided weakness, slurred speech, r/o acute stroke: onset > 12 hrs ago, so outside window for TPA. CT head and CTA neg for stroke. - obtain MRI when possible (not available today) - continue apixaban 4. dyspnea, pleural effusion: sat 90% on RA at times, worse lying flat. Effusions noted on neck CTA. May be due to iv fluid, reactive from RUQ infection. R/o CHF (no history), r/o pna. - obtain CT chest - BNP in am - if worse resp status, consider diuresis 5. HTN: HTN urgency on arrival, improved, labile. - cont home losartan, metoprolol 6. persistent afib: - cont home digoxin, metoprolol, flecainide - resume DOAC - dig level in am to monitor for toxicity 7. normocytic anemia: hgb trending down. No gross bleed. Suspect some component of dilution, marrow suppression from sepsis. - CBC in am dvt ppx: DOAC bowel regimen Dispo plan and GOC: Came from home with . Pending improvement in cholecystitis, on po abx, stroke w/u. Updated daughter and other family at bedside and they agree with plan.
[2024-11-12] MEDS: APIXABAN 5 MG TABLET PO SCH (21:14)
[2024-11-12] MEDS ORDERED: MELATONIN 3 MG TABLET PO PRN (21:47)
[2024-11-13 05:48] LABS: BASOPHILS % (AUTO) 0.2 %; HCT - HEMATOCRIT 34.7 % (37.0-47.0); HGB - HEMOGLOBIN 11.3 g/dL (12.0-16.0); LYMPHOCYTES % (AUTO) 10.8 %; MEAN CORPUSCULAR HEMOGLOBIN 30.8 pg (27.0-31.0); MEAN CORPUSCULAR HGB CONC 32.6 g/dL (32.0-36.0); MEAN CORPUSCULAR VOLUME 94.6 fL (81.0-99.0); MEAN PLATELET VOLUME 11.5 fL (7.9-10.8); MONOCYTES % (AUTO) 10.7 %; NEUTROPHILS % (AUTO) 76.8 %; PLT - PLATELET COUNT 265 10^3/uL (130-450); RED BLOOD COUNT 3.67 10^6/uL (4.20-5.40); RED CELL DISTRIBUTION WIDTH 11.9 % (12.0-15.0); WHITE BLOOD COUNT 14.6 x10^3/uL (4.8-10.8)
[2024-11-13 06:04] LABS: ABNORMAL LYMPHS % (MANUAL) 0 %
[2024-11-13 06:22] LABS: ALBUMIN 2.6 g/dL (3.2-5.5); ALKALINE PHOSPHATASE 84 IU/L (42-121); ALT ALANINE AMINOTRANSFERASE 8 IU/L (10-60); AST ASPARTATE AMINOTRANSFERASE 8 IU/L (10-42); BILIRUBIN,TOTAL 0.5 mg/dL (0.2-1.0); BUN - BLOOD UREA NITROGEN 9 mg/dL (6-20); CALCIUM 7.9 mg/dL (8.5-10.3); CARBON DIOXIDE - CO2 26 mmol/L (21-32); CHLORIDE 100 mmol/L (101-111); CREATININE 0.5 mg/dL (0.6-1.3); DIGOXIN 0.7 ng/mL; GFR - MDRD 119 (>89); GLUCOSE 96 mg/dL (74-104); POTASSIUM 3.8 mmol/L (3.5-4.5); SODIUM 130 mmol/L (135-145); TOTAL PROTEIN 5.2 g/dL (6.4-8.9)
[2024-11-13 06:33] LABS: BAND NEUTROPHILS % (MANUAL) 4 %; DIFFERENTIAL COMMENT MANUAL DIFFERENTIAL; EOSINOPHILS # (MANUAL) 0.1 10^3/uL (0-0.7); LYMPHOCYTES # (MANUAL) 1.6 10^3/uL (1.5-3.5); LYMPHOCYTES % (MANUAL) 11 %; MONOCYTES # (MANUAL) 0.9 10^3/uL (0.0-1.0); PLATELET ESTIMATE, MANUAL NORMAL (130-450,000) (NORMAL); PLATELET MORPHOLOGY NORMAL APPEARANCE (NORMAL); RBC MORPHOLOGY (MULTIPLE) NORMAL APPEARANCE (NORMAL); WBC MORPHOLOGY (MULTIPLE) NORMAL APPEARANCE (NORMAL)
--- NOTE | 2024-11-13 09:26 | PROVIDER PROGRESS NOTE ---
Subjective Subjective Subjective: Patient has no nausea, no vomiting. She states that she does have some difficulty with swallowing, because she starts coughing. She has no nausea, no vomiting, no abdominal pain. Her fevers and chills have improved as well. She does state that she has some shortness of breath, which stays the same when she lies down or when she sits up. Current Medications Current Medications Current Medications: Current Medications Generic Name Dose Route Start Last Admin Trade Name Freq PRN Reason Stop Dose Admin Acetaminophen 650 mg 11/10/24 21:05 11/10/24 21:17 Acetaminophen 325 Mg Tablet PO 650 mg Q4HR PRN Administration Pain or Fever > 38C (100.4F) Apixaban 5 mg 11/12/24 21:00 11/12/24 21:14 Apixaban 5 Mg Tablet PO 5 mg BID ANTHONY Administration Digoxin 250 mcg 11/10/24 09:00 11/12/24 08:42 Digoxin 125 Mcg Tablet PO 250 mcg DAILY ANTHONY Administration Flecainide Acetate 100 mg 11/10/24 12:00 11/12/24 21:14 Flecainide 50 Mg Tablet PO 100 mg BID ANTHONY Administration Furosemide 20 mg 11/13/24 10:00 Furosemide 20 Mg/2 Ml Vial IVP ONCE ANTHONY Hydromorphone HCl 0.5 mg 11/09/24 16:31 11/10/24 11:12 Hydromorphone 0.5 Mg/0.5 Ml Syringe IVP 0.5 mg Q2H PRN Administration Pain 8 to 10 Piperacillin Sod/Tazobactam 100 mls @ 25 mls/hr 11/11/24 08:00 11/13/24 04:00 Sod 3.375 gm/ Sodium Chloride IV Infused Q8H ANTHONY Infusion Protocol Losartan Potassium 50 mg 11/10/24 21:00 11/12/24 21:14 Losartan 50 Mg Tablet PO 50 mg BID ANTHONY Administration Magnesium Oxide 400 mg 11/10/24 08:00 11/12/24 08:41 Magnesium Oxide 400 Mg Tablet PO 400 mg DAILYWM ANTHONY Administration Melatonin 9 mg 11/12/24 21:47 Melatonin 3 Mg Tablet PO QPM PRN Insomnia Metoprolol Succinate 25 mg 11/10/24 21:00 11/12/24 21:14 Metoprolol Succinate 25 Mg Tablet PO 25 mg BID ANTHONY Administration Ondansetron HCl 4 mg 11/09/24 16:31 11/10/24 15:47 Ondansetron 4 Mg/2 Ml Vial IVP 4 mg Q6HR PRN Administration Nausea / Vomiting Pantoprazole Sodium 40 mg 11/09/24 19:00 11/13/24 07:02 Pantoprazole 40 Mg Tablet PO 40 mg QDAC ANTHONY Administration Polyethylene Glycol 17 gm 11/12/24 12:00 11/12/24 12:10 Polyethylene Glycol 3350 17 Gm Packet PO 17 gm DAILY ANTHONY Administration Sodium Chloride 10 ml 11/09/24 16:31 Sodium Chloride Flush 0.9% 10 Ml Syringe IVP PRN PRN NEEDED PER PROVIDER ORDERS Sodium Chloride 10 ml 11/09/24 17:00 11/12/24 23:56 Sodium Chloride Flush 0.9% 10 Ml Syringe IVP 10 ml 0100,0900,1700 ANTHONY Administration Objective Vital Signs/Intake & Output Reviewed Vital Signs: Yes Vital Signs: Vital Signs x48h Pulse Ox O2 Flow Rate 11/13/24 05:04 93 1 11/13/24 03:02 95 Intake & Output: Intake & Output 11/10/24 11/11/24 11/12/24 11/13/24 23:59 23:59 23:59 23:59 Intake Total 2337 / 2337 4313 / 4313 3980 / 3980 250 / 250 Output Total 950 / 950 1200 / 1200 1400 / 1400 325 / 325 Balance 1387 / 1387 3113 / 3113 2580 / 2580 -75 / -75 Objective General Appearance: positive No acute distress and Alert; negative Anxious Eyes Bilateral: positive Normal inspection, PERRL, EOMI and No scleral icterus ENT: positive ENT inspection nml, Pharynx nml and No signs of dehydration Neck: positive Nml inspection, No JVD and Thyromegaly Respiratory: positive Chest non-tender, No respiratory distress and Other (decreased breath sounds in bilateral lower lung [place]en) Cardiovascular: positive Regular rate & rhythm, No murmur and No gallop; negative Systolic murmur or Diastolic murmur Abdomen: positive Non-tender, No organomegaly, Nml bowel sounds and No distention; negative Tenderness, Guarding, Rebound, Splenomegaly or Mass Back: positive Nml inspection; negative CVA tenderness (R) or CVA tenderness (L) Skin: positive Color nml, No rash, Warm and Dry Extremities: positive Non-tender, Full ROM and No pedal edema Neurologic/Psychiatric: positive Oriented x3, CN's nml (2-12), Motor nml, Mood/affect nml and Other (5/5 strength to extension and flexion in all 4 extremities, normal speech, no facial droop noted today) Lab Results 11/13/24 05:13 11/13/24 05:13 Other Labs: Lab Results x24hrs 11/13/24 11/09/24 11/09/24 Range/Units 05:13 12:35 10:44 WBC 14.6 H (4.8-10.8) x10^3/uL RBC 3.67 L (4.20-5.40) 10^6/uL Hgb 11.3 L (12.0-16.0) g/dL Hct 34.7 L (37.0-47.0) % MCV 94.6 (81.0-99.0) fL MCH 30.8 (27.0-31.0) pg MCHC 32.6 (32.0-36.0) g/dL RDW 11.9 L (12.0-15.0) % Plt Count 265 (130-450) 10^3/uL MPV 11.5 H (7.9-10.8) fL Neut # (Auto) Not Reportable Lymph # (Auto) Not Reportable [place] # (Auto) Not Reportable Eos # (Auto) Not Reportable Baso # (Auto) Not Reportable Absolute Nucleated RBC Not Reportable Total Counted 100 Band Neuts % (Manual) 4 (0 - 10) % Abnorm Lymph % (Manual) 0 % Nucleated RBC % Not Reportable Neutrophils # (Manual) 12.0 H (1.5-6.6) 10^3/uL Lymphocytes # (Manual) 1.6 (1.5-3.5) 10^3/uL Monocytes # (Manual) 0.9 (0.0-1.0) 10^3/uL Eosinophils # (Manual) 0.1 (0-0.7) 10^3/uL Basophils # (Manual) 0.0 (0-0.1) 10^3/uL Differential Comment MANUAL DIFFERENTIAL WBC Morphology NORMAL APPEARANCE (NORMAL) Platelet Estimate NORMAL (130-450,000) (NORMAL) Platelet Morphology NORMAL APPEARANCE (NORMAL) RBC Morph Micro Appear NORMAL APPEARANCE (NORMAL) Sodium 130 L (135-145) mmol/L Potassium 3.8 (3.5-4.5) mmol/L Chloride 100 L (101-111) mmol/L Carbon Dioxide 26 (21-32) mmol/L Anion Gap 4.0 L (6-13) BUN 9 (6-20) mg/dL Creatinine 0.5 L (0.6-1.3) mg/dL Estimated GFR (MDRD) 119 (>89) Glucose 96 (74-104) mg/dL Serum Osmolality 253 L (280-301) mOsmol/kg Calcium 7.9 L (8.5-10.3) mg/dL Total Bilirubin 0.5 (0.2-1.0) mg/dL AST 8 L (10-42) IU/L ALT 8 L (10-60) IU/L Alkaline Phosphatase 84 (42-121) IU/L B-Natriuretic Peptide 241 H (5-100) pg/mL Total Protein 5.2 L (6.4-8.9) g/dL Albumin 2.6 L (3.2-5.5) g/dL Globulin 2.6 (2.1-4.2) g/dL Albumin/Globulin Ratio 1.0 (1.0-2.2) Urine Osmolality 453 (.) mOsmol/kg Last Dose Date 11-12-24 Last Dose Time 0900 Digoxin 0.7 ng/mL Diagnostic Imaging Diagnostic Imaging Results: positive Final report reviewed Assessment/Plan Problem List (1) Acute cholecystitis: Impression: Patient presented with fevers, chills, nausea, vomiting. She had a leukocytosis of 25.6. She had typical right upper quadrant pain. Abdominal ultrasound showed distended gallbladder with cholelithiasis, small amount of pericholecystic fluid concerning for acute cholecystitis. General surgeon was spoken with by piling setter at that timewill follow-up with general surgery in outpatient setting, continue to treat medically. Spoke with the general surgery today, Dr. Gardner, and agree with outpatient follow-up as patient is improving medically. Afebrile, no nausea, no vomiting noted. Patient has been on clear liquids. Speech therapy evaluation ordered, based on the recommendations will advance diet as tolerated. Continue IV Zosyn. (2) Acute hyponatremia: Impression: Improving. Received IV fluids with good improvement from 117-130. Continue to trend. (3) Right sided weakness: Impression: On 11/12, patient had an episode of right upper extremity and right lower extremity weakness, as well as slurred speech. Today, this has completely resolved. Head CT was negative. Head CTA showed no significant intracranial arterial abnormality. MRI is ordered, will have services on 11/14. ECHO ordered. (4) Acute hypoxic respiratory failure: Impression: Patient requiring 1 to 2 L of oxygen over the last few days. Changed to room air today. Chest CT shows small right and trace left pleural effusions. Will trial 1 dose of IV Lasix today. Patient does have bilateral thyroid nodules, including a large right thyroid nodule. Her TSH is 0.22, and her T4 is 1.12. She will require follow-up in the outpatient setting with endocrinology for close follow-up of these thyroid nodules. (5) Atrial fibrillation: Impression: Continue home medications, digoxin, flecainide, Eliquis. Qualifiers: Atrial fibrillation type: unspecified Qualified Code(s): I48.91 - Unspecified atrial fibrillation (6) Hypertension: Impression: Continue home losartan, metoprolol. Qualifiers: Hypertension type: unspecified Qualified Code(s): I10 - Essential (primary) hypertension
[2024-11-13] MEDS: FUROSEMIDE 20 MG/2 ML VIAL IVP ONE (10:20)
--- NOTE | 2024-11-13 11:35 | CT Report ---
PROCEDURE: CT Chest WO INDICATIONS: hypoxia, effusion TECHNIQUE: A CT scan of the chest was performed. Intravenous contrast media was not administered. Images were re corded and evaluated at appropriate window settings. Reformats: axial MIP of the chest, coronal and s agittal. For radiation dose reduction, the following was used: automated exposure control, adjustment of mA and/or kV according to patient size. COMPARISON: Thyroid ultrasound 05/28/2024. FINDINGS: Image quality: Patient motion artifact. Chest wall and lower neck: Redemonstration of bilateral nodules, including large right thyroid nodule which were previously characterized on ultrasound in May 2024. No axillary or supraclavicular a denopathy by size. Lungs and pleura: Small right and trace left pleural effusions with subjacent atelectasis. No pneumo thorax. No suspicious pulmonary nodules which require follow up. Mediastinum: Heart size is normal. No pericardial effusion. Aortic arch is calcified. Mild coronary a rtery calcifications. No mediastinal adenopathy by size criteria. Bones: Multiple degenerative changes without acute vertebral body compression fracture. Upper Abdomen: Partially visualized cholelithiasis. IMPRESSION: Small right and trace left pleural effusions with subjacent atelectasis. Bilateral thyroid nodules, including large right thyroid nodule, which were previously characterized on May 2024 thyroid ultrasound. Reviewed by: Latoya Adams MD, PhD on 11/13/2024 11:34 AM PDT Approved by: Latoya Adams MD, PhD on 11/13/2024 11:34 AM PDT Station ID: [id number]
[2024-11-14 08:01] LABS: HCT - HEMATOCRIT 34.4 % (37.0-47.0); HGB - HEMOGLOBIN 11.2 g/dL (12.0-16.0); MEAN CORPUSCULAR HEMOGLOBIN 30.9 pg (27.0-31.0); MEAN CORPUSCULAR HGB CONC 32.6 g/dL (32.0-36.0); MEAN CORPUSCULAR VOLUME 94.8 fL (81.0-99.0); MEAN PLATELET VOLUME 10.9 fL (7.9-10.8); RED BLOOD COUNT 3.63 10^6/uL (4.20-5.40); RED CELL DISTRIBUTION WIDTH 11.8 % (12.0-15.0); WHITE BLOOD COUNT 14.8 x10^3/uL (4.8-10.8)
[2024-11-14 08:22] LABS: CALCIUM 7.8 mg/dL (8.5-10.3); CREATININE 0.5 mg/dL (0.6-1.3); POTASSIUM 3.5 mmol/L (3.5-4.5)
--- NOTE | 2024-11-14 10:09 | PROVIDER PROGRESS NOTE ---
Subjective Subjective Subjective: Patient has no nausea, no vomiting. She is tolerating her GI soft diet well. She has had no fevers or chills. She endorses some mild right upper quadrant pain when she moves around. Her weaknesses have completely resolved. She has had no slurred speech. She said that she feels great today. Current Medications Current Medications Current Medications: Current Medications Generic Name Dose Route Start Last Admin Trade Name Freq PRN Reason Stop Dose Admin Acetaminophen 650 mg 11/10/24 21:05 11/10/24 21:17 Acetaminophen 325 Mg Tablet PO 650 mg Q4HR PRN Administration Pain or Fever > 38C (100.4F) Apixaban 5 mg 11/12/24 21:00 11/14/24 08:49 Apixaban 5 Mg Tablet PO 5 mg BID ANTHONY Administration Digoxin 250 mcg 11/10/24 09:00 11/14/24 08:49 Digoxin 125 Mcg Tablet PO 250 mcg DAILY ANTHONY Administration Flecainide Acetate 100 mg 11/10/24 12:00 11/14/24 08:57 Flecainide 50 Mg Tablet PO 100 mg BID ANTHONY Administration Hydromorphone HCl 0.5 mg 11/09/24 16:31 11/10/24 11:12 Hydromorphone 0.5 Mg/0.5 Ml Syringe IVP 0.5 mg Q2H PRN Administration Pain 8 to 10 Piperacillin Sod/Tazobactam 100 mls @ 25 mls/hr 11/11/24 08:00 11/14/24 08:49 Sod 3.375 gm/ Sodium Chloride IV 25 mls/hr Q8H ANTHONY Administration Protocol Losartan Potassium 50 mg 11/10/24 21:00 11/14/24 08:49 Losartan 50 Mg Tablet PO 50 mg BID ANTHONY Administration Magnesium Oxide 400 mg 11/10/24 08:00 11/14/24 08:49 Magnesium Oxide 400 Mg Tablet PO 400 mg DAILYWM ANTHONY Administration Melatonin 9 mg 11/12/24 21:47 Melatonin 3 Mg Tablet PO QPM PRN Insomnia Metoprolol Succinate 25 mg 11/10/24 21:00 11/14/24 08:49 Metoprolol Succinate 25 Mg Tablet PO 25 mg BID ANTHONY Administration Ondansetron HCl 4 mg 11/09/24 16:31 11/10/24 15:47 Ondansetron 4 Mg/2 Ml Vial IVP 4 mg Q6HR PRN Administration Nausea / Vomiting Pantoprazole Sodium 40 mg 11/09/24 19:00 11/14/24 06:28 Pantoprazole 40 Mg Tablet PO 40 mg QDAC ANTHONY Administration Polyethylene Glycol 17 gm 11/12/24 12:00 11/14/24 09:01 Polyethylene Glycol 3350 17 Gm Packet PO Not Given DAILY ANTHONY Sodium Chloride 10 ml 11/09/24 16:31 Sodium Chloride Flush 0.9% 10 Ml Syringe IVP PRN PRN NEEDED PER PROVIDER ORDERS Sodium Chloride 10 ml 11/09/24 17:00 11/14/24 09:02 Sodium Chloride Flush 0.9% 10 Ml Syringe IVP 10 ml 0100,0900,1700 ANTHONY Administration Objective Vital Signs/Intake & Output Reviewed Vital Signs: Yes Vital Signs: Vital Signs x48h Temp Pulse Resp BP Pulse Ox 11/14/24 09:03 98.1 F 75 20 175/64 H 96 Intake & Output: Intake & Output 11/11/24 11/12/24 11/13/24 11/14/24 23:59 23:59 23:59 23:59 Intake Total 4313 / 4313 3980 / 3980 2240 / 2240 220 / 220 Output Total 1200 / 1200 1400 / 1400 1125 / 1125 Balance 3113 / 3113 2580 / 2580 1115 / 1115 220 / 220 Objective General Appearance: positive No acute distress and Alert; negative Anxious Eyes Bilateral: positive Normal inspection, PERRL, EOMI and No scleral icterus ENT: positive ENT inspection nml, Pharynx nml and No signs of dehydration Neck: positive Nml inspection, No JVD and Thyromegaly Respiratory: positive Chest non-tender, No respiratory distress and Other (decreased breath sounds in bilateral lower lung allen) Cardiovascular: positive Regular rate & rhythm, No murmur and No gallop; negative Systolic murmur or Diastolic murmur Abdomen: positive Non-tender, No organomegaly, Nml bowel sounds and No distention; negative Tenderness, Guarding, Rebound, Splenomegaly or Mass Back: positive Nml inspection; negative CVA tenderness (R) or CVA tenderness (L) Skin: positive Color nml, No rash, Warm and Dry Extremities: positive Non-tender, Full ROM and No pedal edema Neurologic/Psychiatric: positive Oriented x3, CN's nml (2-12), Motor nml, Mood/affect nml and Other (5/5 strength to extension and flexion in all 4 extremities, normal speech, no facial droop noted today) Lab Results 11/14/24 07:45 11/14/24 07:45 Other Labs: Lab Results x24hrs 11/14/24 Range/Units 07:45 WBC 14.8 H (4.8-10.8) x10^3/uL RBC 3.63 L (4.20-5.40) 10^6/uL Hgb 11.2 L (12.0-16.0) g/dL Hct 34.4 L (37.0-47.0) % MCV 94.8 (81.0-99.0) fL MCH 30.9 (27.0-31.0) pg MCHC 32.6 (32.0-36.0) g/dL RDW 11.8 L (12.0-15.0) % Plt Count 290 (130-450) 10^3/uL MPV 10.9 H (7.9-10.8) fL Sodium 133 L (135-145) mmol/L Potassium 3.5 (3.5-4.5) mmol/L Chloride 97 L (101-111) mmol/L Carbon Dioxide 31 (21-32) mmol/L Anion Gap 5.0 L (6-13) BUN 9 (6-20) mg/dL Creatinine 0.5 L (0.6-1.3) mg/dL Estimated GFR (MDRD) 119 (>89) Glucose 112 H (74-104) mg/dL Calcium 7.8 L (8.5-10.3) mg/dL Diagnostic Imaging Diagnostic Imaging Results: positive Final report reviewed Assessment/Plan Problem List (1) Acute cholecystitis: Impression: Patient presented with fevers, chills, nausea, vomiting. She had a leukocytosis of 25.6 on admission. She had typical right upper quadrant pain. Abdominal ultrasound showed distended gallbladder with cholelithiasis, small amount of pericholecystic fluid concerning for acute cholecystitis. General surgeon was spoken with by reeling machine setup operator at that timewill follow-up with general surgery in outpatient setting, continue to treat medically. Spoke with the general surgery 11/13, Dr. Gardner, and agree with outpatient follow-up as patient is improving medically. Afebrile, no nausea, no vomiting noted. Patient to be continued on GI soft diet. Continue IV Zosyn. Today is day 10/27. (2) Acute hyponatremia: Impression: Resolved. Received IV fluids with good improvement from 117-130. Continue to trend. (3) Right sided weakness: Impression: On 11/12, patient had an episode of right upper extremity and right lower extremity weakness, as well as slurred speech. Today, this has completely resolved. Head CT was negative. Head CTA showed no significant intracranial arterial abnormality. MRI is ordered, will have services on 11/14. ECHO ordered. (4) Acute hypoxic respiratory failure: Impression: Resolved. Patient requiring 1 to 2 L of oxygen over the last few days. Now on room air. Chest CT shows small right and trace left pleural effusions. Received one dose of IV Lasix 11/13 with good improvement. Patient does have bilateral thyroid nodules, including a large right thyroid nodule. Her TSH is 0.22, and her T4 is 1.12. She will require follow-up in the outpatient setting with endocrinology for close follow-up of these thyroid nodules. (5) Atrial fibrillation: Impression: Continue home medications, digoxin, flecainide, Eliquis. Qualifiers: Atrial fibrillation type: unspecified Qualified Code(s): I48.91 - Unspecified atrial fibrillation (6) Hypertension: Impression: Continue home losartan, metoprolol. Qualifiers: Hypertension type: unspecified Qualified Code(s): I10 - Essential (primary) hypertension
[2024-11-14] MEDS: LACTOBACILLUS RHAMNOSUS GG CAPSULE PO SCH (20:36)
[2024-11-14 23:41] VITALS: TEMP 98.1
[2024-11-15] MEDS: METOPROLOL 5 MG/5 ML VIAL IVP ONE ×2 (02:54→04:36)
[2024-11-15] MEDS: SODIUM CHLORIDE FLUSH 0.9% 10 ML SYRINGE IVP PRN (04:37)
[2024-11-15 05:55] LABS: HCT - HEMATOCRIT 35.1 % (37.0-47.0); HGB - HEMOGLOBIN 11.2 g/dL (12.0-16.0); MEAN CORPUSCULAR HEMOGLOBIN 30.4 pg (27.0-31.0); MEAN CORPUSCULAR HGB CONC 31.9 g/dL (32.0-36.0); MEAN CORPUSCULAR VOLUME 95.1 fL (81.0-99.0); MEAN PLATELET VOLUME 10.7 fL (7.9-10.8); RED BLOOD COUNT 3.69 10^6/uL (4.20-5.40); RED CELL DISTRIBUTION WIDTH 11.6 % (12.0-15.0); WHITE BLOOD COUNT 15.4 x10^3/uL (4.8-10.8)
[2024-11-15 06:12] LABS: CALCIUM 7.9 mg/dL (8.5-10.3); CREATININE 0.4 mg/dL (0.6-1.3); MAGNESIUM 2.1 mg/dL (1.7-2.3); POTASSIUM 3.5 mmol/L (3.5-4.5)
[2024-11-15 07:38] VITALS: BP 178/73
--- NOTE | 2024-11-15 11:24 | PROVIDER PROGRESS NOTE ---
Subjective Subjective Subjective: Patient has no nausea, no vomiting. She is tolerating her diet well. She has had no fevers or chills. She endorses some mild right upper quadrant pain when she moves around. Her weaknesses have completely resolved. She has had no slurred speech. She said that she feels great today. There is some concern about her going home. She is discussing with her and daughter about next steps about SNF vs. C. Current Medications Current Medications Current Medications: Current Medications Generic Name Dose Route Start Last Admin Trade Name Freq PRN Reason Stop Dose Admin Acetaminophen 650 mg 11/10/24 21:05 11/10/24 21:17 Acetaminophen 325 Mg Tablet PO 650 mg Q4HR PRN Administration Pain or Fever > 38C (100.4F) Apixaban 5 mg 11/12/24 21:00 11/15/24 08:12 Apixaban 5 Mg Tablet PO 5 mg BID ANTHONY Administration Digoxin 250 mcg 11/10/24 09:00 11/15/24 08:12 Digoxin 125 Mcg Tablet PO 250 mcg DAILY ANTHONY Administration Flecainide Acetate 100 mg 11/10/24 12:00 11/15/24 09:00 Flecainide 50 Mg Tablet PO 100 mg BID ANTHONY Administration Hydromorphone HCl 0.5 mg 11/09/24 16:31 11/10/24 11:12 Hydromorphone 0.5 Mg/0.5 Ml Syringe IVP 0.5 mg Q2H PRN Administration Pain 8 to 10 Piperacillin Sod/Tazobactam 100 mls @ 25 mls/hr 11/11/24 08:00 11/15/24 08:11 Sod 3.375 gm/ Sodium Chloride IV 25 mls/hr Q8H ANTHONY Administration Protocol Lactobacillus Rhamnosus 1 cap 11/14/24 18:35 11/15/24 08:12 Lactobacillus Rhamnosus Gg Capsule PO 1 cap DAILY ANTHONY Administration Losartan Potassium 50 mg 11/10/24 21:00 11/15/24 08:12 Losartan 50 Mg Tablet PO 50 mg BID ANTHONY Administration Magnesium Oxide 400 mg 11/10/24 08:00 11/15/24 08:12 Magnesium Oxide 400 Mg Tablet PO 400 mg DAILYWM ANTHONY Administration Melatonin 9 mg 11/12/24 21:47 Melatonin 3 Mg Tablet PO QPM PRN Insomnia Metoprolol Succinate 25 mg 11/10/24 21:00 11/15/24 08:12 Metoprolol Succinate 25 Mg Tablet PO 25 mg BID ANTHONY Administration Ondansetron HCl 4 mg 11/09/24 16:31 11/10/24 15:47 Ondansetron 4 Mg/2 Ml Vial IVP 4 mg Q6HR PRN Administration Nausea / Vomiting Pantoprazole Sodium 40 mg 11/09/24 19:00 11/15/24 06:24 Pantoprazole 40 Mg Tablet PO 40 mg QDAC ANTHONY Administration Polyethylene Glycol 17 gm 11/12/24 12:00 11/15/24 08:10 Polyethylene Glycol 3350 17 Gm Packet PO 17 gm DAILY ANTHONY Administration Sodium Chloride 10 ml 11/09/24 16:31 11/15/24 04:37 Sodium Chloride Flush 0.9% 10 Ml Syringe IVP 10 ml PRN PRN Administration NEEDED PER PROVIDER ORDERS Sodium Chloride 10 ml 11/09/24 17:00 11/15/24 08:13 Sodium Chloride Flush 0.9% 10 Ml Syringe IVP 10 ml 0100,0900,1700 ANTHONY Administration Objective Vital Signs/Intake & Output Reviewed Vital Signs: Yes Vital Signs: Vital Signs x48h Temp Pulse Pulse Resp BP BP Pulse Ox 11/15/24 09:29 11/15/24 07:37 98.1 F 69 20 178/73 H 98 11/15/24 05:40 71 181/75 H 11/15/24 05:25 71 184/74 H 11/15/24 05:10 70 182/72 H 11/15/24 04:57 71 185/75 H 11/15/24 04:51 71 184/78 H 11/15/24 04:45 72 176/80 H 11/15/24 04:36 75 187/79 H 11/15/24 03:55 74 188/75 H 11/15/24 03:40 73 188/77 H 11/15/24 03:25 72 180/74 H O2 Flow Rate 11/15/24 09:29 1 11/15/24 07:37 1 11/15/24 05:40 11/15/24 05:25 11/15/24 05:10 11/15/24 04:57 11/15/24 04:51 11/15/24 04:45 11/15/24 04:36 11/15/24 03:55 11/15/24 03:40 11/15/24 03:25 Intake & Output: Intake & Output 11/12/24 11/13/24 11/14/24 11/15/24 23:59 23:59 23:59 23:59 Intake Total 3980 / 3980 2240 / 2240 1020 / 1020 960 / 960 Output Total 1400 / 1400 1125 / 1125 Balance 2580 / 2580 1115 / 1115 1020 / 1020 960 / 960 Objective General Appearance: positive No acute distress and Alert; negative Anxious Eyes Bilateral: positive Normal inspection, PERRL, EOMI and No scleral icterus ENT: positive ENT inspection nml, Pharynx nml and No signs of dehydration Neck: positive Nml inspection, No JVD and Thyromegaly Respiratory: positive Chest non-tender, No respiratory distress and Other (decreased breath sounds in bilateral lower lung allen) Cardiovascular: positive Regular rate & rhythm, No murmur and No gallop; negative Systolic murmur or Diastolic murmur Abdomen: positive Non-tender, No organomegaly, Nml bowel sounds and No distention; negative Tenderness, Guarding, Rebound, Splenomegaly or Mass Back: positive Nml inspection; negative CVA tenderness (R) or CVA tenderness (L) Skin: positive Color nml, No rash, Warm and Dry Extremities: positive Non-tender, Full ROM and No pedal edema Neurologic/Psychiatric: positive Oriented x3, CN's nml (2-12), Motor nml, Mood/affect nml and Other (5/5 strength to extension and flexion in all 4 extremities, normal speech, no facial droop noted today) Lab Results 11/15/24 05:43 11/15/24 05:43 Other Labs: Lab Results x24hrs 11/15/24 Range/Units 05:43 WBC 15.4 H (4.8-10.8) x10^3/uL RBC 3.69 L (4.20-5.40) 10^6/uL Hgb 11.2 L (12.0-16.0) g/dL Hct 35.1 L (37.0-47.0) % MCV 95.1 (81.0-99.0) fL MCH 30.4 (27.0-31.0) pg MCHC 31.9 L (32.0-36.0) g/dL RDW 11.6 L (12.0-15.0) % Plt Count 323 (130-450) 10^3/uL MPV 10.7 (7.9-10.8) fL Sodium 134 L (135-145) mmol/L Potassium 3.5 (3.5-4.5) mmol/L Chloride 96 L (101-111) mmol/L Carbon Dioxide 33 H (21-32) mmol/L Anion Gap 5.0 L (6-13) BUN 9 (6-20) mg/dL Creatinine 0.4 L (0.6-1.3) mg/dL Estimated GFR (MDRD) 154 (>89) Glucose 119 H (74-104) mg/dL Calcium 7.9 L (8.5-10.3) mg/dL Magnesium 2.1 (1.7-2.3) mg/dL Diagnostic Imaging Diagnostic Imaging Results: positive Final report reviewed Assessment/Plan Problem List (1) Acute cholecystitis: Impression: Patient presented with fevers, chills, nausea, vomiting. She had a leukocytosis of 25.6 on admission. She had typical right upper quadrant pain. Abdominal ultrasound showed distended gallbladder with cholelithiasis, small amount of pericholecystic fluid concerning for acute cholecystitis. General surgeon was spoken with by it desktop support specialist at that timewill follow-up with general surgery in outpatient setting, continue to treat medically. Spoke with the general surgery 11/13, Dr. Gardner, and agree with outpatient follow-up as patient is improving medically. Afebrile, no nausea, no vomiting noted. Patient to be continued on GI soft diet. Continue IV Zosyn. Today is day 11/26. (2) Acute hyponatremia: Impression: Resolved. Received IV fluids with good improvement from 117-130. Continue to trend. (3) Right sided weakness: Impression: On 11/12, patient had an episode of right upper extremity and right lower extremity weakness, as well as slurred speech. Today, this has completely resolved. Head CT was negative. Head CTA showed no significant intracranial arterial abnormality. MRI is ordered, pending today. ECHO completed but not read. (4) Acute hypoxic respiratory failure: Impression: Patient requiring 1 to 2 L of oxygen over the last few days. Now on room air. Chest CT shows small right and trace left pleural effusions. Received one dose of IV Lasix 11/13 with good improvement. Will order oxygen desaturation study. Patient does have bilateral thyroid nodules, including a large right thyroid nodule. Her TSH is 0.22, and her T4 is 1.12. She will require follow-up in the outpatient setting with endocrinology for close follow-up of these thyroid nodules. (5) Atrial fibrillation: Impression: Continue home medications, digoxin, flecainide, Eliquis. Qualifiers: Atrial fibrillation type: unspecified Qualified Code(s): I48.91 - Unspecified atrial fibrillation (6) Hypertension: Impression: Continue home losartan, metoprolol. Qualifiers: Hypertension type: unspecified Qualified Code(s): I10 - Essential (primary) hypertension
--- NOTE | 2024-11-15 12:58 | MRI Report ---
PROCEDURE: MRI Brain WO INDICATIONS: ?rule out cva TECHNIQUE: Noncontrast axial T1 spin echo, axial T2 fast spin echo, sagittal and axial FLAIR, coronal T2 fast sp in echo, axial gradient echo, axial diffusion and ADC through the brain. COMPARISON: CT 11/12/2024 FINDINGS: Image quality: Diagnostic CSF spaces: Basal cisterns are patent. Lateral ventricles are symmetric. Volume: Periventricular white matter signal abnormality is commonly seen with chronic microangiopathy . Volume loss is present. These findings are moderate . Brain: No intracranial hemorrhage. Bourgeois-white differentiation is grossly maintained. Craniofacial structures: Mild paranasal sinus mucosal thickening. IMPRESSION: No acute infarct. No large hemorrhage identified. Reviewed by: Hasmukh Wolf MD on 11/15/2024 12:56 PM PDT Approved by: Hasmukh Wolf MD on 11/15/2024 12:56 PM PDT Station ID: [id number]
--- NOTE | 2024-11-15 12:58 | Discharge Summary ---
"Discharge Summary Admit Date: 11/09/24 Discharge Date: 11/15/24 Discharging Provider: Dr. Leo Cornejo Primary Care Provider: Mark Benavides Discharge Facility [facility]: [facility] DIAGNOSES Admission Diagnoses: Acute cholecystitis Severe hyponatremia Hypertensive urgency Persistent atrial fibrillation Discharge Diagnoses with Status of Each Condition: Acute cholecystitispatient presented with fevers, chills, nausea, vomiting. She had a leukocytosis of 25.6 on admission but typical right upper quadrant pain. Abdominal ultrasound showed concerning findings for acute cholecystitis. General surgeon recommended medical management and follow-up outpatient for cholecystectomy. Zosyn was started, and continued for 5 days. Patient's leukocytosis decreased, and has been stable around 15. She has been afebrile, she has no nausea or vomiting. She was advised to complete 2 more days of Augmentin. She was advised to follow-up with general surgery in the next 1 to 2 weeks. She was advised to return if her symptoms return, or if she had any fevers, chills, abdominal pain. Acute hyponatremiaresolved. Right-sided weakness, patient episode of right-sided weakness, as well as slurred speech. CT head, CTA, MRI were all negative. Echo was also completed, which did not show any acute findings. Acute hypoxic respiratory failureduring her stay here, she required 1 to [address] did show some bilateral pleural effusions, and she was given 1 dose of IV Lasix. She was weaned down to room air, and is doing well. Atrial fibrillationcontinue home digoxin, flecainide, Eliquis. Hypertensioncontinue home losartan and metoprolol. Advised to follow-up with her PCP in 1 week as her blood pressure continues to be elevated while here. HPI History of Present Illness: Per Dr. Chang: 79 yo F with pmhx of afib on dabigatran, asthma, HTN, PUD (35 yrs ago) presenting with upper abdominal pain, n/v x 3 days. No diarrhea. No fever. Symptoms started after a potluck. Pain is primarily epigastric but sometimes RUQ and LUQ. She has not been able to eat or drink much in past couple days. Regular BM, last yesterday. Pt came to the ED today due to worsening pain and bloating. She denies any pain related to intake of fatty foods in recent days-weeks. No h/o gallstones. In the ED, pt was afebrile, BP 190s/60s, HR 60s. She was given zofran, pip-tazo, and 1 L NS, morphine. Nausea resolved. Pain much improved. CONSULTS | PROCEDURES Procedures: Brain MRI, Chest CT, CTA Head/neck, CT head, ECHO HOSPITAL COURSE Hospital Course: Patient is a 79-year-old female with a history of hypertension who presented with abdominal pain, nausea, vomiting. Imaging, as well as lab work indicated that she had acute cholecystitis. She also had a severe hyponatremia. Surgery and anesthesia believe she was not a good candidate for cholecystectomy at this time. She was started on IV Zosyn. This helped with her nausea, vomiting, abdominal pain, and her leukocytosis also decreased and is stabilized around 15. She was given IV fluids with good improvement of her hyponatremia. She was advised to follow-up with general surgery in the next few weeks to complete cholecystectomy. She was also advised to follow-up with her primary care provider to recheck her labs, including her leukocytosis to make sure it resolves, and to also recheck her blood pressure which had been running on the higher side during her hospital stay. ALLERGIES Allergies Allergy/AdvReac Type Severity Reaction Status Date / Time amlodipine (From [facility]) Allergy Unknown Verified 11/09/24 10:28 MEDICATIONS Ambulatory Orders Medication Instructions Recorded Confirmed digoxin 250 mcg (0.25 mg) tablet 250 mg PO DAILY 05/21/22 11/10/24 (Lanoxin) metoprolol succinate 25 mg 25 mg PO BID 05/21/22 11/10/24 tablet,extended release 24 hr cholecalciferol (vitamin D3) 50 50 mcg PO QDAY 05/14/24 11/10/24 mcg (2,000 unit) capsule flecainide 100 mg tablet 100 mg PO BID 05/14/24 11/10/24 losartan 50 mg tablet 50 mg PO BID 05/14/24 11/10/24 magnesium oxide 500 mg PO QDAY 05/14/24 11/10/24 melatonin 10 mg capsule 10 mg PO HS PRN sleep 05/14/24 11/10/24 dabigatran etexilate 150 mg capsule 150 mg PO BID #180 caps 07/03/24 11/10/24 amoxicillin 875 mg-potassium 1 tab PO BID 2 days #4 tabs 11/15/24 clavulanate 125 mg tablet pantoprazole 40 mg tablet,delayed 40 mg PO QDAC #30 tabs 11/15/24 release PHYSICAL EXAM AT DISCHARGE Vital Signs: Vital Signs x48h Temp Pulse Resp BP Pulse Ox O2 Flow Rate 11/15/24 13:00 72 95 11/15/24 09:29 1 11/15/24 07:37 98.1 F 69 20 178/73 H 98 1 General Appearance: positive No acute distress and Alert; negative Anxious Eyes Bilateral: positive Normal inspection, PERRL and EOMI ENT: positive ENT inspection nml, Pharynx nml and No signs of dehydration Neck: positive Nml inspection, Thyroid nml and No JVD Respiratory: positive Chest non-tender, No respiratory distress and Breath sounds nml; negative Wheezes, Rales or Rhonchi Cardiovascular: positive No murmur, No gallop and Irregularly irregular; negative Systolic murmur or Diastolic murmur Peripheral Pulses: positive 2+ Abdomen: positive Non-tender, No organomegaly, Nml bowel sounds and No distention Back: positive Nml inspection; negative CVA tenderness (R) or CVA tenderness (L) Skin: positive Color nml, No rash, Warm and Dry Extremities: positive Non-tender, Full ROM and No pedal edema Neurologic/Psychiatric: positive Oriented x3, Motor nml, Sensation nml and Mood/affect nml LABS 11/15/24 05:43 11/15/24 05:43 DIAGNOSTIC IMAGING Diagnostic Imaging Results: Final report reviewed SEPSIS Current Stage of Sepsis: Resolved FOLLOW UP Follow Up: Follow up with primary care provider. Follow up with general surgery. TIME SPENT Time Spent in Discharge (Minutes): 35 Discharge Plan Discharge Patient Disposition: 06 Home Health Service Condition: Stable Prescriptions: New pantoprazole 40 mg Tablet,Delayed Release (Dr/Ec) 40 mg PO QDAC Qty: 30 0RF amoxicillin-pot clavulanate 875-125 mg tablet 1 tab PO BID 2 Days Qty: 4 0RF Continued dabigatran etexilate 150 mg capsule 150 mg PO BID Qty: 180 2RF digoxin [Lanoxin] 250 MCG tablet 250 mg PO DAILY metoprolol succinate 25 MG tablet extended release 24 hr 25 mg PO BID losartan 50 mg tablet 50 mg PO BID flecainide 100 mg tablet 100 mg PO BID cholecalciferol (vitamin D3) 50 mcg (2,000 unit) capsule 50 mcg PO QDAY magnesium oxide 500 mg magnesium tablet 500 mg PO QDAY melatonin 10 mg capsule 10 mg PO HS PRN (Reason: sleep) Activity Restrictions: Activity as Tolerated Diet: Soft Health Concerns: You came in because you are very weak, throwing up, and were very nauseous. You were found to have inflammation of your gallbladder. We treated you for this medically with IV antibiotics. I will be sending you home with 2 more days of oral antibiotics. We talked about how you will still likely need to have surgery to remove your gallbladder. I have provided follow-up information for our local surgery group. While you are here, you were also found to have low sodium. We gave you IV fluids, which helped resolve this. Finally, you had an episode of weakness, slurred speech. As such, we got an MRI. This did not show any acute strokes. We have set you up with home health care to assist you at home. Please continue to follow-up with your primary care provider in the next 1 to 2 weeks. I especially want him to check your blood pressure as it was a little elevated while you were here. Please follow-up with the surgeon as well to schedule your cholecystectomy, or removal of your gallbladder. We are glad you are feeling better, thanks allowing us to care for you. Print Language: Israeli Patient Instructions: ED Gallbladder Infec Poss Stand Alone Forms: PCP List Follow-up Care: Mark Benavides MD [Primary Care Provider] - Batsheva Gardner MD [Provider Admit Priv/Credential] -"
[2024-11-15 13:22] VITALS: O2SAT 95
--- NOTE | 2024-11-15 14:48 | ECHO Report ---
Version: 1 Study ID: [id number] [id number] Adult Echocardiogram Report Name: CEM SHARPE Study Date: 11/14/2024, 4: 46 PM BP : 175 / 54 mmHg [place] [facility] [place]01 : 1945 (MM/DD/YYYY) Gender: Female He ight: 64 in Age: 79 Years Weight: 165.347 lb Reason For Study: TIKA History: acute respiratory with hypoxia, afib, HTN Procedure: A complete two-dimensional transthoracic echocardiogram was performed (2D, M-mode, Doppler and color flow Doppler). The patient was comfortable and cooperative throughout the procedure. The study was done with the patient lying in the left lateral position. The underlying rhythm was sinus. Interpretation Summary The left ventricle is normal in size. There is mild concentric increase in the wall thickness of the left ventricle. The calculated ejection fraction, as determined by the biplane method of disks, is 69%. The right ventricle is normal size. The right ventricular systolic function is normal. Mild tricuspid regurgitation present. There is mild mitral regurgitation. Mild aortic regurgitation is present. Left Ventricle: The left ventricle is normal in size. There is mild concentric increase in the wall thickness of the left ventricle. Global left ventricular systolic function is normal. The calculated ejection fraction, as determined by the biplane method of disks, is 69%. No regional wall motion abnormalities are present. The overall diastolic pat tern is most consistent with impaired left ventricular relaxation with elevated filling pressures. Right Ventricle: The right ventricle is normal size. There is normal right ventricular wall thickness. The right ventr icular systolic function is normal. No regional wall motion abnormalities are noted. Aortic Valve: Aortic valve sclerosis is present without stenosis. No hemodynamically significant valvular aortic st enosis. Mild aortic regurgitation is present. Mitral Valve: The mitral valve leaflets appear thickened, but with normal motion. No evidence of mitral stenosis is seen. There is mild mitral regurgitation. Tricuspid Valve: The tricuspid valve is visually normal in structure and function. There is no tricuspid stenosis. Mil d tricuspid regurgitation present. Pulmonic Valve: The pulmonic valve cusps are thin and pliable; valve motion is normal. There is no pulmonic valvular stenosis. The pulmonic valve peak velocity is 1.2 m/sec. Trace pulmonic valvular regurgitation is present. Left Atrium: The left atrial volume indexed to body surface area is 43 ml/m2. This refers to the maximal volume me asured prior to mitral valve opening. The left atrium is mildly to moderately dilated. Right Atrium: The right atrium is mildly to moderately dilated. The inferior vena cava appears normal. The inferior vena cava is normal in diameter (<2.1cm) and there is complete collapse with inspiration (estimated right atrial p ressure 0-5mmHg). Atrial Septum: There is no Doppler evidence for an atrial septal defect. Aorta: The diameter of the ascending aorta is 3.4 cm. The aortic root measures 3.4 cm in diameter. Pulmonary Artery: The pulmonary artery is normal size. The right ventricular systolic pressure is 2.5mmHg. Pericardium/Pleural Space: There is no pericardial effusion. No pleural effusion is seen. Doppler Measurements & Calculations Ao max P.5 mmHg Ao V2 max: 162.0 cm/sec LV V1 max: 113.8 cm/sec LV V1 max P.2 mmHg MV A max boubacar: 101.6 cm/sec MV dec time: 0.22 sec MV DVI-pr: 0.63 MV E max boubacar: 63.6 cm/sec PA max P.0 mmHg PA V2 max: 122.4 cm/sec RAP systole: 3.0 mmHg RV S Boubacar: 15.7 cm/sec TR max P.5 mmHg TR max boubacar: 329.8 cm/sec MMode/2D Measurements & Calculations Ao root diam: 3.4 cm EDV(MOD-sp4): 78.7 ml EDV(sp4-el): 75.4 ml EF (est.): 68.8 % ESV(MOD-sp4): 42.5 ml Height (metric): 160.0 cm IVSd: 1.03 cm LAV(MOD-bp): 82.6 ml LAV(MOD-bp) Indexed: 46.3 ml/m² LAV(MOD-sp2): 83.5 ml LAV(MOD-sp4): 73.0 ml LVAd ap4: 23.6 cm² LVIDd: 4.3 cm LVIDs: 2.7 cm LVLd ap4: 7.1 cm LVLs ap4: 6.2 cm LVPWd: 1.03 cm RA A4Cs: 16.8 cm² Systolic Pressure: 175.0 mmHg TAPSE: 2.5 cm Other Measurements & Calculations Ao root diam: 3.4 cm Ao V2 max: 162.0 cm/sec BMI: 29.3 kilograms/m² BSA: 1.78 m² BSA([facility]): 1.85 m² Diastolic Pressure: 54.0 mmHg EDV(MOD-sp4): 78.7 ml EDV(sp4-el): 75.4 ml EDV(Teich): 83.9 ml EF (est.): 68.8 % EF(MOD-sp4): 46.0 % EF(Teich): 68.3 % ESV(MOD-sp4): 42.5 ml ESV(Teich): 26.6 ml FS: 37.9 % Height (metric): 160.0 cm IVSd: 1.03 cm LAV(MOD-bp): 82.6 ml LAV(MOD-bp) Indexed: 46.3 ml/m² LAV(MOD-sp2): 83.5 ml LAV(MOD-sp4): 73.0 ml LV V1 max: 113.8 cm/sec LVAd ap4: 23.6 cm² LVIDd: 4.3 cm LVIDs: 2.7 cm LVLd ap4: 7.1 cm LVLs ap4: 6.2 cm LVPWd: 1.03 cm MV A max boubacar: 101.6 cm/sec MV dec time: 0.22 sec MV DVI-pr: 0.63 MV E max boubacar: 63.6 cm/sec MV E/A: 0.63 PA max P.0 mmHg PA V2 max: 122.4 cm/sec RA A4Cs: 16.8 cm² RAP systole: 3.0 mmHg RV S Boubacar: 15.7 cm/sec RVSP(TR): 46.5 mmHg SV(MOD-sp4): 36.2 ml Systolic Pressure: 175.0 mmHg TAPSE: 2.5 cm TR max P.5 mmHg TR max boubacar: 329.8 cm/sec TV max P.5 mmHg Weight (metric): 75.0 kg Lat E/e': 8.9 Med E/e': 12.6 EDV(MOD-sp2): 71.9 ml EF Mod BP: 68.7 % ESV(MOD-sp2): 33.3 ml EF(MOD-sp2): 53.7 % EF(sp-el): 57.1 % Marquis Cheung MD 11/15/2024, 2: 48 PM Ordering Physician: Leo Cornejo Referring Physician: Taina Zelaya Performed By: Maxine Bassett RDCS
== END 2024-11-15 14:50 | disposition home health service (06) | DRG 871 ==
LOC: ED 09:37 → MS2 15:36
PROVIDERS: ADMIT Student in an Organized Health Care Education/Training Program; ATTEND Student in an Organized Health Care Education/Training Program